=== PATIENT | female | born 1990 | race Caucasian/White ===

== ENCOUNTER 2023-10-31 20:15 | Emergency (ER) | payer BC, SELFPAY ==
[2023-10-31 20:19] VITALS: BP 148/95; PULSE 88; RESP 16; TEMP 36.7; O2SAT 99; BMI 38.4
[2023-10-31 20:59] LABS: Bilirubin Urine NEGATIVE (NEGATIVE); Blood Urine LARGE (NEGATIVE); Clarity Urine CLEAR (CLEAR); Color Urine YELLOW (YELLOW); Glucose Urine UA NEGATIVE (NEGATIVE); Ketones Urine NEGATIVE (NEGATIVE); Leukocyte Esterase Urine NEGATIVE (NEGATIVE); Nitrite Urine NEGATIVE (NEGATIVE); Protein Urine TRACE mg/dL (NEG/TRACE); pH Urine 7.5 (5.0-9.0)
[2023-10-31 21:00] LABS: Basophils Percent Auto 0.2 % (0.2-2.0); Eosinophils Absolute Auto 0.4 10^3/uL (0.0-0.7); Eosinophils Percent Auto 4.8 % (0.9-7.0); Hematocrit 38.5 % (36.0-48.0); Immature Granulocytes Abs Auto 0.02 10^3/uL (0.00-0.03); Immature Granulocytes Pct Auto 0.2 % (0.0-0.5); Lymphocytes Absolute Auto 2.1 10^3/uL (1.2-3.8); Lymphocytes Percent Auto 25.3 % (20.5-60.0); Mean Corpuscular HGB Conc 31.2 g/dL (29.9-35.2); Mean Corpuscular Hemoglobin 26.5 pg (26.7-34.0); Mean Corpuscular Volume 85.2 fL (81.0-99.0); Mean Platelet Volume 10.2 fL (9.5-13.5); Monocytes Absolute Auto 0.8 10^3/uL (0.3-0.8); Monocytes Percent Auto 9.2 % (1.7-12.0); Neutrophils Absolute Auto 4.9 10^3/uL (1.4-6.5); Neutrophils Percent Auto 60.3 % (43.0-75.0); Platelet Count 318 10^3/uL (150-450); Red Blood Count 4.52 10^6/uL (4.20-5.40); Red Cell Distribution Width 13.1 % (11.0-15.0); White Blood Count 8.1 10^3/uL (4.0-11.0)
[2023-10-31 21:02] LABS: Urine Microscopic Indicated YES
--- NOTE | 2023-10-31 21:04 | ED.ABDPAIN1 ---
HPI - Abdominal Pain General Chief Complaint: Abdominal Pain Stated Complaint: ABD PAIN Time Seen by Provider: 10/31/23 20:22 Source: patient Mode of arrival: walk-in History of Present Illness HPI narrative: This afternoon the patient developed pain in the right lower abdomen. Pain comes in waves and is not constant. Sometimes when she gets the pain she has nausea but has not vomited. No flank pain. No urinary symptoms. LMP was 10/22/23 but then she began bleeding again today. She told me that she had her ovarian tubes removed but still has ovaries and uterus. She still has her appendix. No fever or chills. Related Data Previous Rx's Medication Instructions Recorded nabumetone 750 mg tablet 750 mg PO BID PRN pain #20 tabs 10/31/23 Allergies Allergy/AdvReac Type Severity Reaction Status Date / Time No Known Drug Allergies Allergy Verified 10/31/23 20:19 Exam Narrative Exam Narrative: Nurses notes and vital signs reviewed and patient is not hypoxic. afebrile General: Well-appearing and in no apparent distress. Skin: Warm, dry, no pallor noted. Eye: Pupils are equal, round and EOMI. No scleral icterus. Ears, Nose, Mouth, and Throat: Oral mucosa is moist Cardiovascular: Regular Rate and Rhythm without murmur, gallop or rub. Respiratory: No accessory muscle use or respiratory distress. Lungs are clear to auscultation, no wheezing, rales or rhonchi Back: No CVA tenderness Musculoskeletal: normal ROM GI: Abdomen is soft, non-distended. Normal bowel sounds. No masses appreciated. Suprapubic, right adnexal and RLQ tenderness to palpation. No rebound, guarding, or rigidity noted. Neurological: A&O x4. No cranial nerve dysfunction observed. No truncal ataxia. Moves all extremities. Sensation intact. Psychiatric: Cooperative and interactive. Normal mood and affect. Constitutional Vital Signs, click to edit/add: Last Vital Signs Temp 98.0 F 10/31/23 20:19 Pulse 96 H 10/31/23 21:59 Resp 16 10/31/23 21:59 BP 130/88 10/31/23 21:59 Pulse Ox 97 10/31/23 21:59 O2 Del Method Room Air 10/31/23 21:59 Course Vital Signs Vital signs: Vital Signs Temperature 98.0 F 10/31/23 20:19 Pulse Rate 88 10/31/23 20:19 Respiratory Rate 16 10/31/23 20:19 Blood Pressure 148/95 H 10/31/23 20:19 Pulse Oximetry 99 10/31/23 20:19 Oxygen Delivery Method Room Air 10/31/23 20:19 Temperature 98.0 F 10/31/23 20:19 Pulse Rate 96 H 10/31/23 21:59 Respiratory Rate 16 10/31/23 21:59 Blood Pressure 130/88 10/31/23 21:59 Pulse Oximetry 97 10/31/23 21:59 Oxygen Delivery Method Room Air 10/31/23 21:59 MDM - Abdominal Pain MDM Narrative Medical decision making narrative: Blood and urine obtained and sent for testing. She was given oral Toradol for pain once the was negatifve and then sent for CT abd.pelvis. CBC and CMP negative. Preg negative. CT = right adnexal cyst. right renal stone noted without ureteral involvement or hydronephrosis. no evidence of acute appendicitis. She was informed of results. No in house US tonight. She was discharged home with prescription for Relafen and referred to [facility] to get out-patient evaluation if pain continues. Lab Data Attestation: I reviewed the patient's lab results. Labs: Lab Results 10/31/23 10/31/23 Range/Units 20:40 20:50 WBC 8.1 (4.0-11.0) 10^3/uL RBC 4.52 (4.20-5.40) 10^6/uL Hgb 12.0 (12.0-16.0) g/dL Hct 38.5 (36.0-48.0) % MCV 85.2 (81.0-99.0) fL MCH 26.5 L (26.7-34.0) pg MCHC 31.2 (29.9-35.2) g/dL RDW 13.1 (11.0-15.0) % Plt Count 318 (150-450) 10^3/uL MPV 10.2 (9.5-13.5) fL Neut % (Auto) 60.3 (43.0-75.0) % Lymph % (Auto) 25.3 (20.5-60.0) % Wilkinson % (Auto) 9.2 (1.7-12.0) % Eos % (Auto) 4.8 (0.9-7.0) % Baso % (Auto) 0.2 (0.2-2.0) % Neut # (Auto) 4.9 (1.4-6.5) 10^3/uL Lymph # (Auto) 2.1 (1.2-3.8) 10^3/uL Wilkinson # (Auto) 0.8 (0.3-0.8) 10^3/uL Eos # (Auto) 0.4 (0.0-0.7) 10^3/uL Baso # (Auto) 0.0 (0.0-0.1) 10^3/uL Abs Immat Gran (auto) 0.02 (0.00-0.03) 10^3/uL Imm/Tot Granulo (auto) 0.2 (0.0-0.5) % Sodium 138 (136-145) mmol/L Potassium 4.2 (3.5-5.1) mmol/L Chloride 103 (98-107) mmol/L Carbon Dioxide 27.2 (21.0-32.0) mmol/L Anion Gap 12.0 BUN 10.0 (7.0-18.0) mg/dL Creatinine 1.01 (0.55-1.02) mg/dL Est GFR ( Amer) >60 (>=60) Est GFR (Non-Af Amer) >60 (>=60) BUN/Creatinine Ratio 9.9 Glucose 183 H (74-106) mg/dL Calcium 8.5 (8.5-10.1) mg/dL Total Bilirubin 0.2 (0.2-1.0) mg/dL AST 21 (15-37) U/L ALT 32 (14-59) U/L Alkaline Phosphatase 86 (46-116) U/L Total Protein 6.8 (6.4-8.2) g/dL Albumin 3.2 L (3.4-5.0) g/dL Globulin 3.6 g/dL Albumin/Globulin Ratio 0.9 Serum HCG, Qual Negative (NEGATIVE) Urine Color Yellow (YELLOW) Urine Clarity Clear (CLEAR) Urine pH 7.5 (5.0-9.0) Ur Specific [place] 1.020 (1.005-1.025) Urine Protein Trace (NEG/TRACE) mg/dL Urine Glucose (UA) Negative (NEGATIVE) mg/dL Urine Ketones Negative (NEGATIVE) mg/dL Urine Occult Blood Large A (NEGATIVE) Urine Nitrite Negative (NEGATIVE) Urine Bilirubin Negative (NEGATIVE) Urine Urobilinogen 1.0 (0.2-1.0) EU/dL Ur Leukocyte Esterase Negative (NEGATIVE) Urine RBC 0-2 (0-2) #/HPF Urine WBC 0-2 A (NONE SEEN) #/HPF Ur Squamous Epith Cells Few A (NONE/RARE) #/LPF Urine Crystals None seen (None Seen) #/HPF Urine Bacteria Trace A (NONE SEEN) #/HPF Urine Casts None seen (NONE SEEN) #/LPF Urine Mucus None seen (NONE SEEN) Imaging Data CT scan - abdomen: Radiologist's impression: ITS Impressions Abdomen/Pelvis CT 10/31/23 21:18 IMPRESSION: 1. A 4.5 x 4.3 cm oval cystic mass at the right ovary/adnexa containing internal densities (image 103 series 3). Differential includes ovarian cyst with internal debris, ovarian hemorrhagic cyst, endometrioma, or a cystic neoplasm. Recommend emergency pelvic sonogram to further evaluate and to also evaluate surrounding gonadal vessels. 2. Slightly lobulated uterine wall contour is not well evaluated without IV contrast. Trace pelvic free fluid. Mild amount of fluid and foci of air within the vaginal canal. 3. Mild sigmoid diverticula without pericolonic inflammatory stranding. Moderate amount of stool at the cecum. 4. 4 mm nonobstructing right superior renal stone without radiopaque ureteral stone or hydronephrosis. 5. No evidence for acute appendicitis. The appendix is unremarkable. Electronically authenticated by: TONY HICKEY Date: 10/31/2023 22:16 Discharge Plan Discharge Stand Alone Forms: Portal Instructions Chief Complaint: Abdominal Pain Clinical Impression: Complex cyst of right ovary Patient Disposition: Home, Self-Care Time of Disposition Decision: 22:26 Prescriptions / Home Meds: New nabumetone 750 mg tablet 750 mg PO BID PRN (Reason: pain) Qty: 20 0RF Instructions: Ovarian Cyst (ED) Referrals: MARYLIN ERICKSON [Primary Care Provider] - 1 week Tae Gonzalez DO [Physician] - As needed
[2023-10-31 21:13] LABS: Bacteria Urine TRACE #/HPF (NONE SEEN); Mucus Urine NONE SEEN (NONE SEEN); RBC Urine 0-2 #/HPF (0-2); WBC Urine 0-2 #/HPF (NONE SEEN)
[2023-10-31 21:14] LABS: Alanine Aminotransferase 32 U/L (14-59); Albumin Globulin Ratio 0.9; Albumin Level 3.2 g/dL (3.4-5.0); Alkaline Phosphatase 86 U/L (46-116); Aspartate Amino Transferase 21 U/L (15-37); BUN Creatinine Ratio 9.9; Bilirubin Total 0.2 mg/dL (0.2-1.0); Calcium 8.5 mg/dL (8.5-10.1); Carbon Dioxide 27.2 mmol/L (21.0-32.0); Chloride 103 mmol/L (98-107); Estimated GFR (African America >60 (>=60); Estimated GFR (Non-African Ame >60 (>=60); Globulin 3.6 g/dL; Glucose 183 mg/dL (74-106); Potassium 4.2 mmol/L (3.5-5.1); Sodium 138 mmol/L (136-145); Total Protein 6.8 g/dL (6.4-8.2)
[2023-10-31 21:14] LABS: Cast Seen? NONE SEEN #/LPF (NONE SEEN); Crystals Seen? None Seen #/HPF (None Seen); Squamous Epithelial Cell Urine FEW #/LPF (NONE/RARE)
[2023-10-31 21:16] LABS: HCG Qualitative NEGATIVE (NEGATIVE)
--- NOTE | 2023-10-31 21:18 | CT_ITS ---
The [address] [address] Patient Name: ANN WHITT MRN: [id number] date: 1990 Sex: F Assigned Patient Location: ER Current Patient Location: ER Accession/Order Number: [id number] Exam Date: 10/31/2023 21:38 Report Date: 10/31/2023 22:16 At the request of: MICAELA TORRES Procedure: CT abdomen pelvis wo con EXAM: CT abdomen pelvis wo con HISTORY: RLQ abd pain , complaints right lower quadrant abdominal pain radiates to the right hip and upper leg. Started vaginal bleeding. History of ovarian cysts. COMPARISON: No comparison abdominal imaging available at the time of dictation. TECHNIQUE: Multiple axial views CT abdomen pelvis without IV contrast. Coronal sagittal reformats performed. FINDINGS: Visualized lung bases and cardiac apex are unremarkable. Liver, gallbladder, pancreas, spleen, adrenal glands, left kidney, underdistended urinary bladder, and appendix are unremarkable by noncontrast exam. A 4 mm nonobstructing right superior renal stone. No radiopaque ureteral stone or hydronephrosis. A 4.5 x 4.3 cm oval cystic mass at the right ovary/adnexa containing internal densities (image 103 series 3). Slightly lobulated uterine wall contour is not well evaluated without IV contrast. Trace pelvic free fluid. Mild amount of fluid and foci of air within the vaginal canal. Mild sigmoid diverticula without pericolonic inflammatory stranding. Moderate amount of stool at the cecum. Stomach is underdistended. No perigastric inflammatory stranding. No evidence for small bowel obstruction, large ascites, or free air. Retroperitoneal vasculature is unremarkable by noncontrast exam. No acute bony abnormality. Trace retrolisthesis of L5 on S1 secondary to disc aeration. Mild disc bulge at L5-S1 without severe bony canal narrowing. Mild sclerosis of the bones at the bilateral sacroiliac joints. CT/CT abdomen pelvis wo con IMPRESSION: 1. A 4.5 x 4.3 cm oval cystic mass at the right ovary/adnexa containing internal densities (image 103 series 3). Differential includes ovarian cyst with internal debris, ovarian hemorrhagic cyst, endometrioma, or a cystic neoplasm. Recommend emergency pelvic sonogram to further evaluate and to also evaluate surrounding gonadal vessels. 2. Slightly lobulated uterine wall contour is not well evaluated without IV contrast. Trace pelvic free fluid. Mild amount of fluid and foci of air within the vaginal canal. 3. Mild sigmoid diverticula without pericolonic inflammatory stranding. Moderate amount of stool at the cecum. 4. 4 mm nonobstructing right superior renal stone without radiopaque ureteral stone or hydronephrosis. 5. No evidence for acute appendicitis. The appendix is unremarkable. Electronically authenticated by: TONY HICKEY Date: 10/31/2023 22:16
[2023-10-31 21:59] VITALS: BP 130/88; PULSE 96; RESP 16; O2SAT 97
[2023-10-31] MEDS: KETOROLAC TROMETHAMINE 10 MG TABLET PO (22:36)
== END 2023-10-31 22:40 | disposition home or self-care (01) ==
PROVIDERS: Emergency Provider Emergency Medicine; PCP Nurse Practitioner
DX: N83.201 Unspecified ovarian cyst, right side (principal)
CPT/HCPCS: 36415; 74176; 80053; 81001; 84703; 85025; 99284

== ENCOUNTER 2025-04-08 16:36 | Emergency (ER) | payer OTHER, BC, SELFPAY ==
[2025-04-08 16:40] VITALS: BP 160/94; PULSE 95; TEMP 37.1; O2SAT 96; BMI 40.4
--- OUTSIDE RECORDS SUMMARY | 2025-04-08 16:44 | XMS_ITS | Encounter Summary ---
[facility] [place] [id number] [address] [place] [address] Care Team Providers Care Medical Scientific Liaison Name Role Phone Monika, Bernadette Manning APRN-DELIVERY MERCHANDISER Primary Care Provider + Encounter Details Date Type Department Care Team (Late st Contact Info) Description 05/05/2023 Telephone [facility] - Family Medicine [address] [place] [phone] Cristina Blanco MA Social History Tobacco Use Types Packs/Day Years Used Date Smoking Tobacco: Never Smokeless Tobacco: Never Alcohol Use Standard Drinks/Week Comments Yes 0 (1 standard drink = 0.6 oz pur e alcohol) rarely Overall Financial Resource Strain (CARDIA) Answe r Date Recorded How hard is it for you to pa y for the very basics like food, housing, medical care, and heating? Somewhat hard 10/20/2022 PHQ-2 Answer Date Recorded Total Score 0 04/29/2023 PRAPARE - Transportation Answer Date Re corded In the past 12 months, has l ack of transportation kept you from medical appointments or from getting medications? No 02/2023 In the past 12 months, has l ack of transportation kept you from meetings, work, or from getting things needed for daily living? No 10/20/2022 Housing Instability Answer Date Recorde d Are you worried or concerned that in the next two months you may not have stable housing that you own, rent or stay in as a part of a household? No 10/20/2022 Childcare Answer Date Recorded Childcare Unknown 01/19/2019 Employment Answer Date Recorded Employment Unknown 01/19/2019 Purpose - Life Answer Date Recorded Purpose and direction in life Unknown Comments No Sex and Gender Information Value Date Recorded Sex Assigned at Not on file Legal Sex Female 12:07 PM EDT Gender Identity Not on file Sexual Orientation Not on file documented as of this encounter Miscellaneous Notes * Telephone Encounter - Cristina Blanco MA - 05/05/2023 3:17 PM EDT Vrylar is being denied , no reason given. * Telephone Encounter - JACINTO Ballard - 05/05/2023 3:17 PM EDT I don't see the denial in her chart - is there alternative medications listed? When I typed a few in, nothing is saying covered. Stephany Pace * Telephone Encounter - Cristian Blanco MA - 05/05/2023 3:17 PM EDT No, I only got informed it was denied in cover my meds, doesn't say anything that is covered, saying may be covered through savings card online or assistance * Telephone Encounter - JACINTO Ballard - 05/05/2023 3:17 PM EDT Please let her know about using savings card - [facility] but if not she can get online and activate before going to pharmacy- have her let me know if still not affordable. Or maybe contact out [facility] to help * Telephone Encounter - Cristina Blanco MA - 05/05/2023 3:17 PM EDT Called pt and informed her of all documented in this encounter Plan of Treatment Upcoming Encounters Date Type Department Care Team (Late st Contact Info) Description 05/04/2025 10:00 AM EDT Office Visit [facility] - Family Medicine [address] [place] [address] Bernadette Frank APRN-DELIVERY MERCHANDISER [address] [place] [address] documented as of this encounter Visit Diagnoses Not on filedocumented in this encounter Additional Health Concerns Assessment Noted Time PHQ-9 Depression Total Score: 0 04/29/20 9:40 AM EDT A Body Mass Index follow-up plan has been documented for the patient 12/21/2022 11:14 AM EDT documented as of this encounter Care Teams Medical Scientific Liaison Relationship Specialty Start Date End Date Bernadette Frank APRN-JAIRO [address] [place] [address] PCP - General Internal Medicine 10/13/22 documented as of this encounter
--- OUTSIDE RECORDS SUMMARY | 2025-04-08 16:44 | XMS_ITS | Encounter Summary ---
Author Organization [facility] Address [facility] [id number] [address] [place] [address] Care Team Providers Care Geotechnical Department Manager Name Role Phone Bernadette Frank APRN-DENTAL OFFICE RECEPTIONIST Primary Care Provider + Encounter Details Date Type Department Care Team (Late st Contact Info) Description 11/03/2023 Telephone [facility] - Family Medicine [address] [phone] Bernadette Frank APRN-DENTAL OFFICE RECEPTIONIST [address] [facility] [place] [address] Social History Tobacco Use Types Packs/Day Years [...] PHQ-2 Answer Date Recorded Total Score 0 05/14/2023 PRAPARE - Transportation Answer Date Re corded [...] Employment Answer Date Recorded Employment Unknown 01/19/2019 Hunger Screening Answer Date Recorded Within the past 12 months we worried whether our food would run out before we got money to buy more. Never True 05/14/2023 Within the past 12 months th e food we bought just didn't last and we didn't have money to get more. Never True 05/14/2023 Purpose - Life Answer Date Recorded Purpose and direction in life Unknown Comments No Sex and Gender Information Value Date Recorded Sex Assigned at Not on file Legal Sex Female 12:07 PM EDT Gender Identity Not on file Sexual Orientation Not on file documented as of this encounter Miscellaneous Notes * Telephone Encounter - Ce Chu - 11/03/2023 8:17 AM EDT ----- Message from JACINTO Ballard sent at 11/02/2023 8:41 AM EDT ----- Please see how she is feeling and if she would like ER f/u for abd pain ----- Message ----- From: Ce Chu Sent: 11/01/2023 1:39 PM EDT To: JACINTO Ballard * Telephone Encounter - Ce Chu - 11/03/2023 8:17 AM EDT Sent mycjil msg * Telephone Encounter - Ce Chu - 11/03/2023 8:17 AM EDT Patient is feeling better and does not want appt documented in this encounter Plan of Treatment Upcoming Encounters Date Type Department Care Team (Late st Contact Info) Description 05/04/2025 10:00 AM EDT Office Visit [facility] - Family Medicine [address] [place] [address] Bernadette Frank APRN-CNP [address] [place] [address] documented as of this encounter Visit Diagnoses Not on filedocumented in this encounter Additional Health Concerns Assessment Noted Time PHQ-9 Depression Total Score: 0 05/14/20 8:43 AM EDT A Body Mass Index follow-up plan has been documented for the patient 12/21/2022 11:14 AM EDT documented as of this encounter Care Teams Geotechnical Department Manager Relationship Specialty Start Date End Date Bernadette Frank APRN-CNP [address] [place] [address] PCP - General Internal Medicine 10/13/22 documented as of this encounter
--- OUTSIDE RECORDS SUMMARY | 2025-04-08 16:44 | XMS_ITS | Encounter Summary ---
Author Organization [facility] Address [address], [address] [place] [address] Care Team Providers Care Senior Quality Control Technician Name Role Phone Ya Morrow ARCHITECTURE PROFESSOR - HOE RUNNER Primary Care Prov ider Encounter Details Date Type Department Care Team (Late st Contact Info) Description 09/27/2019 FollowUp Telephone Encounter [facility] Labor and Delivery [address] [place] [address] Radha Ramos [place] [address] Social History Tobacco Use Types Packs/Day Years Used Date Smoking Tobacco: Never Smokeless Tobacco: Never Alcohol Use Standard Drinks/Week Comments Not Currently 0 (1 standard drink = 0.6 oz pur e alcohol) PHQ-2 Answer Date Recorded PHQ-2 Score 0 08/07/2019 Comments No Sex and Gender Information Value Date Recorded Sex Assigned at Not on file Legal Sex Female 4:14 PM EDT Gender Identity Not on file Sexual Orientation Not on file documented as of this encounter Progress Notes * Radha Ramos IBCLC - 09/27/2019 1:38 PM EST Discharge Phone Call Log Patient Name: Xuan Rushing Manuel OB Care Provider: No admitting provider for patient encounter. Most Recent Discharge Date: 09/23/19 Disposition of baby: (home) Call made 09/27/2019 1:38 PM [x] Spoke with patient. Mom and baby are doing well: denies needs. [x] Understood discharge instruction and had appropriate follow up care. [x] Had a good hospital experience. [] Gave compliments - documented in this encounter Plan of Treatment Not on file documented as of this encounter Visit Diagnoses Not on filedocumented in this encounter Care Teams Senior Quality Control Technician Relationship Specialty Start Date End Date Ya Morrwo, ARCHITECTURE PROFESSOR - HOE RUNNER PCP - General 02/07/19 documented as of this encounter
--- OUTSIDE RECORDS SUMMARY | 2025-04-08 16:44 | XMS_ITS | Encounter Summary ---
Author Organization [facility] Address [id number] [address] [place] [address] Care Team Providers Care Leaf Conditioner Name Role Phone Monika Bernadette Manning APRN-IT RISK ADVISOR Primary Care Provider + Encounter Details Date Type Department Care Team (Late st Contact Info) Description 09/01/2024 Orders Only [facility] - Family Medicine [address] [place] [phone] Tita Vance CMA Moderate episode of recurrent major depressive disorder (CMS-HCC); Anxiety Social History Tobacco Use Types Packs/Day Years Used Date Smoking Tobacco: Never Smokeless Tobacco: Never Alcohol Use Standard Drinks/Week Comments Yes 0 (1 standard drink = 0.6 oz pur e alcohol) rarely Overall Financial Resource Strain (CARDIA) Answe r Date Recorded How hard is it for you to pa y for the very basics like food, housing, medical care, and heating? Not very hard 06/21/2024 PHQ-2 Answer Date Recorded Total Score 9 08/25/2024 PRAPARE - Transportation Answer Date Re corded In the past 12 months, has l ack of transportation kept you from medical appointments or from getting medications? No 01/2024 In the past 12 months, has l ack of transportation kept you from meetings, work, or from getting things needed for daily living? No 06/21/2024 Housing Instability Answer Date Recorde d Are you worried or concerned that in the next two months you may not have stable housing that you own, rent or stay in as a part of a household? No 06/21/2024 Childcare Answer Date Recorded Childcare Unknown 01/19/2019 Employment Answer Date Recorded Employment Unknown 01/19/2019 Hunger Screening Answer Date Recorded Within the past 12 months we worried whether our food would run out before we got money to buy more. Never True 08/25/2024 Within the past 12 months th e food we bought just didn't last and we didn't have money to get more. Never True 08/25/2024 Purpose - Life Answer Date Recorded Purpose and direction in life Unknown Comments No Sex and Gender Information Value Date Recorded Sex Assigned at Not on file Legal Sex Female 12:07 PM EDT Gender Identity Not on file Sexual Orientation Not on file documented as of this encounter Plan of Treatment Upcoming Encounters Date Type Department Care Team (Late st Contact Info) Description 05/04/2025 10:00 AM EDT Office Visit [facility] - Family Medicine [address] [place] [address] Bernadette Frank APRN-IT RISK ADVISOR [address] [facility] [place] [address] documented as of this encounter Procedures Procedure Name Priority Date/Time Associated Diagnosis Comments GENESITE TEST NON-[facility] Routine 08/03/2024 Moderate episode of recurrent major depressive disorder (CMS-HCC) Anxiety documented in this encounter Results * Genesite Test Non-[facility] (08/03/2024) 08/03/2024 us Bernadette Frank TORCH BURNER-IT RISK ADVISOR LAB BLOOD ORDERABLES Fin al Result MANUALLY TRANSCRIBED RESULTS documented in this encounter Visit Diagnoses Diagnosis Moderate episode of recurrent major depressive disorder (CMS-HCC) Anxiety Anxiety state, unspecified documented in this encounter Additional Health Concerns Assessment Noted Time PHQ-9 Depression Total Score: 9 08/25/19 25 11:17 AM EST A Body Mass Index follow-up plan has been documented for the patient 12/21/2022 11:14 AM EDT documented as of this encounter Care Teams Leaf Conditioner Relationship Specialty Start Date End Date Bernadette Frank, TORCH BURNER-IT RISK ADVISOR [address] [place] [address] PCP - General Internal Medicine 10/13/22 documented as of this encounter
--- OUTSIDE RECORDS SUMMARY | 2025-04-08 16:44 | XMS_ITS | Clinical Summary ---
Author Organization [facility] Healthcare Address [address] [place] [address] Care Team Providers Care Platform Man Name Role Phone Bernadette Frank MD Unavailable Allergies No known active allergies Medications buPROPion XL (Wellbutrin XL) 150 MG 24 hr tablet Take 150 mg by mouth in the morning. 06/22/2024 Active escitalopram (Lexapro) 20 MG tablet Take 1 tablet by mouth in the morning. 12/23/2023 Active loratadine (Claritin) 10 MG tablet Take 10 mg by mouth in the morning. 06/22/2024 Active ibuprofen 800 MG tablet Take 800 mg by mouth every 8 (eight) hours if needed 07/28/2024 Active LORazepam (Ativan) 0.5 MG tablet Take by mouth Active amoxicillin (Amoxil) 500 MG capsule TAKE 1 CAPSULE BY MOUTH IN THE MORNING AND 1 AT BEDTIME FOR 10 DAYS 07/28/2024 Active Active Problems Problem Noted Date Diagnosed Date Menorrhagia 08/02/2024 Menstrual disorder 08/02/2024 Anxiety 11/27/2022 Moderate episode of recurrent major depressive d isorder 11/27/2022 Carpal tunnel syndrome of right wrist 10/22/2022 Failed medical induction of labor ([facility]) 04/2023 macrosomia in third trimester ([facility]) Metrorrhagia 10/22/2022 Obesity with body mass index 30 or greater 10/22 Polyhydramnios in third trimester ([facility]) 04/2023 Postcoital bleeding 10/22/2022 Primary insomnia 10/22/2022 S/P primary low transverse 10/22/2022 Sleep apnea 10/22/2022 Vitamin D deficiency 10/22/2022 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 Term ([facility]) 09/20/2019 Uterine contractions during ([facility]) 09/11/2019 Class 1 obesity due to exces s calories without serious comorbidity with body mass index (BMI) of 34.0 to 34.9 in adult 11/27/2018 Diarrhea 11/02/2018 Encounter for general adult medical examination without abnormal findings 11/02/2018 Nausea 11/02/2018 RUQ pain 11/02/2018 Immunizations Immunization Administration Dates Next Due Influenza, injectable, quadrivalent, preservativ e free 07/14/2019 Tdap 08/07/2019 Family History Medical History Relation Name Comments Diabetes Father Orlin Lancaster Asthma Mother Magalys Lancaster Rashes / Skin problems Mother Magalys Lancaster Thyroid disease Mother Magalys Lancaster Relation Name Status Comments Father Orlin Lancaster Mother Magalys Lancaster Social History Tobacco Use Types Packs/Day Years Used Date Smoking Tobacco: Never Smokeless Tobacco: Never Tobacco Cessation:Counseling Given: Not Answered Alcohol Use Standard Drinks/Week Comments Not Currently 2 (1 standard drink = 0.6 oz pure alcohol) 1 or 2 i really dont drink that often Comments No Sex and Gender Information Value Date Recorded Sex Assigned at Not on file Legal Sex Female 6:38 PM EDT Gender Identity Not on file Sexual Orientation Not on file Last Filed Vital Signs Vital Sign Reading Time Taken Comments Blood Pressure 167/103 08/04/2024 8:52 AM EST Pulse - - Temperature - - Respiratory Rate - - Oxygen Saturation - - Inhaled Oxygen Concentration - - Weight 98.9 kg (218 lb) 08/04/2024 8:52 AM EST Height 152.4 cm (5') 08/04/2024 8:52 AM EST Body Mass Index 42.58 08/04/2024 8:52 AM EST Plan of Treatment Upcoming Encounters Date Type Department Care Team (Late st Contact Info) Description 05/21/2025 10:00 AM EDT Clinical Support [facility] [address] [place] [id number] Simin De Leon, [facility] [address] [place] [address] 05/22/2025 10:30 AM EDT Office Visit [facility] [address] [facility] [address] [place] [id number] Renée Vegas MD [address] [facility] [address] [place] [address] Insurance BCBS Care Teams Platform Man Relationship Specialty Start Date End Date Bernadette Frank MD Referring Physician Family Medicine 08/02/24
--- OUTSIDE RECORDS SUMMARY | 2025-04-08 16:44 | XMS_ITS | Clinical Summary ---
Author Organization [facility] Address [id number] [address] [place] [address] Care Team Providers Care [employer] Internship Name Role Phone Bernadette Frank APRN-ADULT LITERACY INSTRUCTOR Primary Care Provider + Allergies Active Allergy Reactions Criticality Noted Date Comments Cat Dander Eye Swelling,Hives,Itching,Wheezing Bupropion Hcl Itching Low 09/08/2024 Medications LORazepam (ATIVAN) 0.5 mg tabletIndication s:Anxiety Take 1 tablet (0.5 mg total) by mouth 2 (two) times a day as needed for anxiety. 10 tablet 3 Active hydrocortisone (HYTONE) 2.5 % cream Apply 1 Application topically in the morning and 1 Application before bedtime. FOR HANDS. 30 g 1 5 Active triamcinolone (KENALOG) 0.1 % cream Apply 1 Application topically in the morning and 1 Application before bedtime. Limbs, trunk, ankles wrists. 80 g 1 5 Active albuterol (PROVENTIL HFA;VENTOLIN HFA) 90 mcg/actuation inhalerIndicatio ns:Mild intermittent reactive airway disease without complication Inhale 2 puffs every 6 (six) hours as needed for wheezing or shortness of breath. 18 g 1 5 Active fluticasone propion-salmeter oL (ADVAIR DISKUS) 250-50 mcg/dose DISKUS Inhale 1 puff in the morning and 1 puff before bedtime. 60 each 1 5 Active naproxen (NAPROSYN) 500 mg tablet Take 1 tablet (500 mg total) by mouth in the morning and 1 tablet (500 mg total) in the evening. Take with meals. 60 tablet 1 Active citalopram (CeleXA) 20 mg tablet Take 1 tablet (20 mg total) by mouth in the morning. 90 tablet 1 Active Active Problems Problem Noted Date Diagnosed Date Reactive airway disease 03/09/2025 Menorrhagia 08/02/2024 Moderate episode of recurrent major depressive d isorder 11/27/2022 Anxiety 11/27/2022 Carpal tunnel syndrome of right wrist 10/22/2022 Failed medical induction of labor 10/22/2022 macrosomia in third trimester 10/22/2022 Metrorrhagia 10/22/2022 Polyhydramnios in third trimester 10/22/2022 Postcoital bleeding 10/22/2022 Primary insomnia 10/22/2022 S/P primary low transverse 10/22/2022 Sleep apnea 10/22/2022 Vitamin D deficiency 10/22/2022 Obesity with body mass index 30 or greater 10/22 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 Term 09/20/2019 Uterine contractions during 09/11/2019 Class 1 obesity due to exces s calories without serious comorbidity with body mass index (BMI) of 34.0 to 34.9 in adult 11/27/2018 Annual physical exam 11/21/2018 RUQ pain 11/02/2018 Blood tests for routine general physical examina tion 11/02/2018 Nausea 11/02/2018 Diarrhea 11/02/2018 Encounters Date Type Department Care Team Description 03/14/2025 Results Follow-Up [facility] [address] [place] [address] Bernadette Frank APRN-CNP Comprehensive metabolic panel, Lipid profile 03/09/2025 10:00 AM EDT Office Visit [facility] [address] [place] [address] Bernadette Frank APRN-CNP Wellness examination (Primary Dx); Moderate episode of recurrent major depressive disorder (CMS-HCC); Anxiety; Tension headache; Class 3 severe obesity due to excess calories without serious comorbidity with body mass index (BMI) of 40.0 to 44.9 in adult ([facility]); Atopic dermatitis, unspecified type; Bilateral hearing loss, unspecified hearing loss type; Mild intermittent reactive airway disease without complication; Elevated blood pressure reading 03/08/2025 Travel 01/18/2025 9:40 AM EDT Office Visit [facility] [address] [facility] [place] [address] Bernadette Frank, COMPATIBILITY TEST ENGINEER-ADULT LITERACY INSTRUCTOR Moderate persistent asthma, unspecified whether complicated (Primary Dx); Anxiety; Moderate episode of recurrent major depressive disorder ([facility]); Seasonal allergic rhinitis due to pollen; Class 3 severe obesity due to excess calories with serious comorbidity and body mass index (BMI) of 40.0 to 44.9 in adult ([facility]) 01/16/2025 Travel from Last 3 Months Immunizations Immunization Administration Dates Next Due Influenza, Injectable, quadrivalent (PF) 019 Tdap 08/07/2019 Family History Medical History Relation Name Comments Diabetes Father borderline Asthma Mother Thyroid disease Mother Relation Name Status Comments Brother Alive Daughter 1 Alive born at 24 week s Daughter 2 Alive Father Alive Mother Alive Social History Tobacco Use Types Packs/Day Years Used Date Smoking Tobacco: Never Smokeless Tobacco: Never Tobacco Cessation:Counseling Given: Not Answered Alcohol Use Standard Drinks/Week Comments Yes 0 (1 standard drink = 0.6 oz pur e alcohol) rarely Overall Financial Resource Strain (CARDIA) Answe r Date Recorded How hard is it for you to pa y for the very basics like food, housing, medical care, and heating? Not very hard 06/21/2024 PHQ-2 Answer Date Recorded Total Score 1 03/09/2025 PRAPARE - Transportation Answer Date Re corded [...] got money to buy more. Never True 03/09/2025 Within the past 12 months th e food we bought just didn't last and we didn't have money to get more. Never True 03/09/2025 Purpose - Life Answer Date Recorded Purpose and direction in life Unknown Comments No Sex and Gender Information Value Date Recorded Sex Assigned at Not on file Legal Sex Female 12:07 PM EDT Gender Identity Not on file Sexual Orientation Not on file Last Filed Vital Signs Vital Sign Reading Time Taken Comments Blood Pressure 138/98 03/09/2025 9:52 AM EDT Pulse 77 03/09/2025 9:52 AM EDT Temperature 36.5 C (97.7 F) 03/09/2025 9:52 AM EDT Respiratory Rate 18 03/09/2025 9:52 AM EDT Oxygen Saturation 97% 03/09/2025 9:52 AM EDT Inhaled Oxygen Concentration - - Weight 97.7 kg (215 lb 6.4 oz) 03/09/2025 9:52 A M EDT Height 149.9 cm (4' 11.02 ) 03/09/2025 9:52 AM E DT Body Mass Index 43.48 03/09/2025 9:52 AM EDT Plan of Treatment Upcoming Encounters Date Type Department Care Team (Late st Contact Info) Description 05/04/2025 10:00 AM EDT Office Visit [facility] [address] [place] [address] Bernadette Frank, COMPATIBILITY TEST ENGINEER-ADULT LITERACY INSTRUCTOR [address] [place] [address] Health Maintenance Due Date Last Done Comments Pap Smear 12/21/2025 12/21/2022, 05/0 03/2023, 03/20/2019 Adult BMI Follow Up Plan 03/09/2026 03/09/2025 Adult BMI Screening 03/09/2026 03/09/2025 Depression Screening 03/09/2026 03/09/2025 Tobacco Screening 03/09/2026 03/09/2025 DTaP,Tdap and Td Vaccines (2 - Td or Tdap) 08/07/2029 08/07/2019 Influenza Vaccine Discontinued 07/14/2019 Medical Devices Not on file Procedures Procedure Name Priority Date/Time Associated Diagnosis Comments LIPID PROFILE Routine 03/09/2025 10:44 AM EDT Wellness examination COMPREHENSIVE METABOLIC PANEL Routine 03/09/2025 10:44 AM EDT Wellness examination HIGH RISK HPV W/NEGRITA Routine 12/21/2022 4:40 AM EDT Cervical smear, as part of routine gynecological examination from Last 3 Months or Most Recently Relevant to Health Maintenance Results * (ABNORMAL) Lipid profile (03/09/2025 10:44 AM EDT) CHOLESTEROL 210(H) 150 - 200 mg/dL 03/09/2025 6:13 PM EDT [facility] TRIGLYCERIDE 141 27 - 150 mg/dL 03/09/2025 6:13 PM EDT [facility] HDL CHOLESTEROL 44 >39 mg/dL 6:13 PM EDT [facility] Comment: HDL <40 mg/dL - High Risk HDL > or = 40mg/dL- Desirable HDL >60 mg/dL - Negative Risk LDL (CALC) 138(H) <130 mg/dL 03/09/2025 6:13 PM EDT [facility] Comment: LDL <100 mg/dL - Desirable LDL >160 mg/dL - High Risk CHOLESTEROL:HDL 4.8 1.0 - 5.0 6:13 PM EDT [facility] VERY LOW LIPOPROTEIN 28 0 - 30 mg/dL 03/09/2025 6:13 PM EDT [facility] Blood Venous blood / Unknown 03/09/2025 10:44 AM EDT 03/09/2025 10:44 AM EDT Bernadette Frank COMPATIBILITY TEST ENGINEER-ADULT LITERACY INSTRUCTOR LAB BLOOD ORDERABLES Fin al Result [facility] [address] [place] [address], * (ABNORMAL) Comprehensive metabolic panel (03/09/2025 10:44 AM EDT) SODIUM 138 134 - 146 mmol/L 03/09/2025 6:13 PM EDT [facility] POTASSIUM 4.0 3.5 - 5.0 mmol/L 03/09/2025 6:13 PM EDT [facility] CHLORIDE 101 98 - 109 mmol/L 03/09/2025 6:13 PM EDT [facility] CARBON DIOXIDE 26 22 - 32 mmol/L 03/09/2025 6:13 PM EDT [facility] ANION GAP 11 5 - 15 mmol/L 03/09/2025 6:13 PM EDT [facility] BLOOD UREA NITROGEN 10 5 - 23 mg/dL 03/09/2025 6:13 PM EDT [facility] CREATININE 0.73 0.40 - 1.00 mg/dL 03/09/2025 6:13 PM EDT [facility] Comment:METHOD TRACEABLE TO IDMS STANDARD GLUCOSE 154(H) 65 - 99 mg/dL 03/09/2025 6:13 PM EDT [facility] CALCIUM 9.1 8.5 - 10.5 mg/dL 03/09/2025 6:13 PM EDT [facility] TOTAL PROTEIN 7.3 6.0 - 8.0 g/dL 03/09/2025 6:13 PM EDT [facility] ALBUMIN 4.4 3.2 - 5.3 g/dL 03/09/2025 6:13 PM EDT [facility] ALKALINE PHOSPHATASE 84 39 - 130 U/L 03/09/2025 6:13 PM EDT [facility] AST 17 <=41 U/L 03/09/2025 6:13 PM EDT [facility] ALT 21 <=31 U/L 03/09/2025 6:13 PM EDT [facility] BILIRUBIN,TOTAL 0.5 0.3 - 1.2 mg/dL 03/09/2025 6:13 PM EDT [facility] EGFR Non-Race Dependent >90 >=60 ml/min/1.7 3sq.m 03/09/2025 6:13 PM EDT [facility] Comment: Reported eGFR is based on the CKD-EPI 2020 equation that does not use a race coefficient. Blood Venous blood / Unknown 03/09/2025 10:44 AM EDT 03/09/2025 10:44 AM EDT Bernadette Frank COMPATIBILITY TEST ENGINEER-ADULT LITERACY INSTRUCTOR LAB BLOOD ORDERABLES Fin al Result Performing Organization Address City/[facility]/ZIP Co de Phone Number [facility] [address] [place] [address], * High risk HPV w/negrita (12/21/2022 4:40 AM EDT) Hpv specimen type ThinPrep 12/22/2022 4:41 AM EDT [facility] Hpv 16 Negative Negative^N egative 12/23/2022 6:25 AM EDT [facility] Hpv 18 Negative Negative^N egative 12/23/2022 6:25 AM EDT [facility] Other high risk hpv Negative Negative^N egative 12/23/2022 6:25 AM EDT [facility] Comment: HPV types 31,33,35,39,45,52,56,58,59,66 and 68 DNA were undetectable. THINP 12/21/2022 4:40 AM EDT 12/21/2022 5:22 AM EDT us Tamara Chavez MD LAB BLOOD ORDERABLES Final Res ult [address] [place] [address] [facility] [address] [place] [address] from Last 3 Months or Most Recently Relevant to Health Maintenance Insurance [facility] Advance Directives Documents on File Type Date Recorded Patient Fisher Diver Net Expl anation Advance Directive 01/18/2025 9:12 AM Care Teams University Internship Relationship Specialty Start Date End Date Bernadette Frank, COMPATIBILITY TEST ENGINEER-ADULT LITERACY INSTRUCTOR [address] [place] [address] PCP - General Internal Medicine 10/13/22
--- OUTSIDE RECORDS SUMMARY | 2025-04-08 16:44 | XMS_ITS | Encounter Summary ---
Author Organization [facility] Address [id number] [address] [place] [address] Care Team Providers Care Chemical Etching Processor Name Role Phone Monika Bernadette Manning APRN-REFINING STILL OPERATOR Primary Care Provider + Encounter Details Date Type Department Care Team (Late st Contact Info) Description 09/05/2024 Telephone [facility] - [facility] [address] [place] [phone] Maribell Mota CMA Social History Tobacco Use Types Packs/Day Years [...] 06/21/2024 PHQ-2 Answer Date Recorded Total Score 0 09/08/2024 PRAPARE - Transportation Answer Date Re corded [...] got money to buy more. Never True 09/08/2024 Within the past 12 months th e food we bought just didn't last and we didn't have money to get more. Never True 09/08/2024 Purpose - Life Answer Date Recorded Purpose and direction in life Unknown Comments No Sex and Gender Information Value Date Recorded Sex Assigned at Not on file Legal Sex Female 12:07 PM EDT Gender Identity Not on file Sexual Orientation Not on file documented as of this encounter Miscellaneous Notes * Telephone Encounter - Maribell Mota CMA - 09/05/2024 9:27 AM EST ----- Message from JACINTO Jaime sent at 09/05/2024 8:57 AM EST ----- We have her genesite testing back so you can set up appt to review/decide on med therapy documented in this encounter Plan of Treatment Upcoming Encounters Date Type Department Care Team (Late st Contact Info) Description 05/04/2025 10:00 AM EDT Office Visit [facility] [address] [place] [address] Bernadette Frank APRN-CNP [address] [place] [address] documented as of this encounter Visit Diagnoses Not on filedocumented in this encounter Additional Health Concerns Assessment Noted Time PHQ-9 Depression Total Score: 9 08/25/19 25 11:17 AM EST A Body Mass Index follow-up plan has been documented for the patient 12/21/2022 11:14 AM EDT documented as of this encounter Care Teams Chemical Etching Processor Relationship Specialty Start Date End Date Bernadette Frank APRN-CNP [address] [place] [address] PCP - General Internal Medicine 10/13/22 documented as of this encounter
--- OUTSIDE RECORDS SUMMARY | 2025-04-08 16:44 | XMS_ITS | Encounter Summary ---
Author Organization [facility] Address [facility] [id number] [address] [place] [address] Care Team Providers Care Property Damage Claims Adjustor Name Role Phone MonikaBernadette ruiz Kerri CAMPBELL-BEAM DYER Primary Care Provider + Encounter Details Date Type Department Care Team (Late st Contact Info) Description 09/01/2024 Orders Only [facility] - Family Medicine [address] [place] [address] Ref Prov, [place] [address] Social History Tobacco Use Types Packs/Day Years [...] Medicine - Family Medicine [address] [place] [address] Bernadette Frank APRN-BEAM DYER [address] [place] [address] documented as of this encounter Procedures Procedure Name Priority Date/Time Associated Diagnosis Comments MULTIPLE LABS Routine 08/03/2024 8:59 AM EST documented in this encounter Results * Multiple labs (08/03/2024 8:59 AM EST) us Not In System Ref Prov [place] IMAGING Final Res ult documented in this encounter Visit Diagnoses Not on filedocumented in this encounter Additional Health Concerns Assessment Noted Time PHQ-9 Depression Total Score: 9 08/25/19 25 11:17 AM EST A Body Mass Index follow-up plan has been documented for the patient 12/21/2022 11:14 AM EDT documented as of this encounter Care Teams Property Damage Claims Adjustor Relationship Specialty Start Date End Date Bernadette Frank APRN-BEAM DYER [address] [place] [address] PCP - General Internal Medicine 10/13/22 documented as of this encounter
--- OUTSIDE RECORDS SUMMARY | 2025-04-08 16:45 | XMS_ITS | Encounter Summary ---
Author Organization [facility] Address [id number] [address] [place] [address] Care Team Providers Care Pot Maker Name Role Phone Bernadette Frank APRN-FARM CONSULTANT Primary Care Provider + Encounter Details Date Type Department Care Team (Late st Contact Info) Description 08/22/2024 Orders Only [facility] - Family Medicine [address] [place] [address] Bernadette Frank, GAS ENGINE OPERATOR GENERATORS-FARM CONSULTANT [address] [facility] [place] [address] Moderate episode of recurrent major depressive disorder [...] Internal Medicine - Family Medicine [address] [place] [address] Bernadette Frank, ADRINA-FARM CONSULTANT [address] [place] [address] documented as of this encounter Procedures Procedure Name Priority Date/Time Associated Diagnosis Comments AMB REFERRAL TO PSYCHIATRY Routine 08/22/2024 12:43 PM EST Moderate episode of recurrent major depressive disorder (CMS-HCC) Anxiety documented in this encounter Results * Ambulatory referral to Psychiatry ([facility]) (08/22/2024 12:43 PM EST) us Bernadette Frank GAS ENGINE OPERATOR GENERATORS-FARM CONSULTANT OUTPATIENT REFERRAL IBIS [facility]ITO Final Result MANUALLY TRANSCRIBED RESULTS documented in this encounter Visit Diagnoses Diagnosis Moderate episode of recurrent major depressive disorder (CMS-HCC) Anxiety Anxiety state, unspecified documented in this encounter Additional Health Concerns Assessment Noted Time PHQ-9 Depression Total Score: 12 024 10:54 AM EST A Body Mass Index follow-up plan has been documented for the patient 12/21/2022 11:14 AM EDT documented as of this encounter Care Teams Pot Maker Relationship Specialty Start Date End Date Bernadette Frank APRN-JAIRO [address] [place] [address] PCP - General Internal Medicine 10/13/22 documented as of this encounter
--- OUTSIDE RECORDS SUMMARY | 2025-04-08 16:45 | XMS_ITS | Encounter Summary ---
Author Organization [facility] Address [id number] [address] [place] [address] Care Team Providers Care Security Dispatcher Name Role Phone Bernadette Frank APRN-DEVELOPMENTAL SERVICES WORKER Primary Care Provider + Encounter Details Date Type Department Care Team (Late st Contact Info) Description 08/04/2024 Orders Only [facility] Internal Medicine - Family Medicine [address] [place] [address] Bernadette Frank, RN IMMUNOLOGY-DEVELOPMENTAL SERVICES WORKER [address] [facility] [place] [address] Enlarged tonsils Social History Tobacco Use Types Packs/Day Years [...] 06/21/2024 PHQ-2 Answer Date Recorded Total Score 12 06/22/2024 PRAPARE - Transportation Answer Date Re corded [...] got money to buy more. Never True 024 Within the past 12 months th e food we bought just didn't last and we didn't have money to get more. Sometimes True 06/21/2024 Purpose - Life Answer Date Recorded Purpose [...] Internal Medicine - Family Medicine [address] [place] [address] Bernadette Frank APRN-JAIRO [address] [place] [address] documented as of this encounter Procedures Procedure Name Priority Date/Time Associated Diagnosis Comments AMB REFERRAL TO ENT Routine 08/04/2024 1 0:30 AM EST Enlarged tonsils documented in this encounter Results * Ambulatory referral to ENT ([facility]) (08/04/2024 10:30 AM EST) us Bernadette Frank RN IMMUNOLOGY-DEVELOPMENTAL SERVICES WORKER OUTPATIENT REFERRAL [place] [facility] Final Result MANUALLY TRANSCRIBED RESULTS documented in this encounter Visit Diagnoses Diagnosis Enlarged tonsils Hypertrophy of tonsils alone documented in this encounter Additional Health Concerns Assessment Noted Time PHQ-9 Depression Total Score: 12 024 10:54 AM EST A Body Mass Index follow-up plan has been documented for the patient 12/21/2022 11:14 AM EDT documented as of this encounter Care Teams Security Dispatcher Relationship Specialty Start Date End Date Bernadette Frank, RN IMMUNOLOGY-DEVELOPMENTAL SERVICES WORKER [address] [place] [address] PCP - General Internal Medicine 10/13/22 documented as of this encounter
--- OUTSIDE RECORDS SUMMARY | 2025-04-08 16:45 | XMS_ITS | Clinical Summary ---
Author Organization [facility] Address [address], [address] [place] [address] Care Team Providers Care Glass Edger Name Role Phone Ya Morrow LIFE SCIENCES DIRECTOR - DOOR TECHNICIAN Primary Care Prov ider Allergies No known active allergies Medications NY-Ook-HX-[place] -3 ( GUMMIES/DHA & FA) 0.4-32.5 MG CHEW Take 1 tablet by mouth Active buPROPion (WELLBUTRIN XL) 150 MG extended release tabletIndicatio ns:Irritability and anger Take 1 tablet by mouth every morning 30 tablet 12 11/06/2019 Active norethindrone (ORTHO MICRONOR) 0.35 MG tabletIndicatio ns:Irritability and anger Take 1 tablet by mouth daily 28 tablet 12 11/06/2019 Active Active Problems Patient Care Coordination No te Formatting of this note migh t be different from the original. History of delivery at 24 weeks and 18 weeks [place] med[place] risk assesment form = n/a testing = declined Ped = RH factor = Rhogam? 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 Term 09/20/2019 Uterine contractions during 09/11/2019 Class 1 obesity due to exces s calories without serious comorbidity with body mass index (BMI) of 34.0 to 34.9 in adult 11/27/2018 Nausea 11/02/2018 RUQ pain 11/02/2018 Diarrhea 11/02/2018 Polyhydramnios in third trimester macrosomia in third trimester Failed medical induction of labor S/P primary low transverse Resolved Problems Problem Noted Date Diagnosed Date Resolved Date Incompetent cervix in pregna ncy, antepartum, third trimester 03/20/2019 09/28/2019 History of delivery, currently 03/20/2019 09/28/2019 History of uterine inversion 03/20/2019 09/28/2019 Blood tests for routine gene ral physical examination 11/02/2018 03/09/2019 Immunizations Immunization Administration Dates Next Due Influenza, FLUARIX, FLULAVAL , FLUZONE (age 6 mo+) and AFLURIA, (age 3 y+), Quadv PF, 0.5mL 07/14/2019 TDaP, ADACEL (age 10y-64y), BOOSTRIX (age 10y+), IM, 0.5mL 08/07/2019 Family History Medical History Relation Name Comments No Known Problems Brother Diabetes Father COPD Maternal Grandfather Diabetes Maternal Grandfather Lung Cancer Maternal Grandfather COPD Maternal Grandmother Thyroid Disease Mother Lung Cancer Paternal Grandfather Relation Name Status Comments Brother Alive Father Alive Maternal Grandfather Maternal Grandmother Alive Mother Alive Paternal Grandfather Paternal Grandmother Social History Tobacco Use Types Packs/Day Years [...] Sign Reading Time Taken Comments Blood Pressure 110/68 11/06/2019 10:30 AM EDT Pulse 87 09/23/2019 8:30 AM EST Temperature 37 C (98.6 F) 09/23/2019 8:30 AM EST Respiratory Rate 16 09/23/2019 8:30 AM EST Oxygen Saturation 97% 09/20/2019 10:47 PM EST Inhaled Oxygen Concentration - - Weight 81.6 kg (180 lb) 11/06/2019 10:30 AM EDT Height 149.9 cm (4' 11 ) 11/06/2019 10:30 AM EDT Body Mass Index 36.36 11/06/2019 10:30 AM EDT Plan of Treatment Not on file Insurance [place] [employer] Advance Directives * Full Code (Latest Code Status on File) Date Activated Date Inactivated Comments 09/20/2019 8:25 PM 09/23/2019 7:31 PM * Full Code Date Activated Date Inactivated Comments 09/20/2019 6:07 PM 09/20/2019 8:25 PM * Full Code Date Activated Date Inactivated Comments 09/20/2019 5:08 AM 09/20/2019 6:07 PM * Full Code Date Activated Date Inactivated Comments 09/11/2019 8:39 PM 09/12/2019 1:16 PM * Full Code Date Activated Date Inactivated Comments 04/05/2019 9:03 AM 04/05/2019 3:52 PM Care Teams Glass Edger Relationship Specialty Start Date End Date Ya Morrow, LIFE SCIENCES DIRECTOR - DOOR TECHNICIAN PCP - General 02/07/19
--- OUTSIDE RECORDS SUMMARY | 2025-04-08 16:46 | XMS_ITS | CCD ---
Author Organization [facility] Care Team Providers Care Cross Tie Turner Name Role Phone MORROWRENZO ANNEERIE Admitting Unavailable MORROW, MARYLIN Attending Unavailable MORROW, MARYLIN Primary Care Unavailable MORROW, MARYLIN Admitting Unavailable MORROW, MARYLIN Attending Unavailable MORROW, MARYLIN Primary Care Unavailable REBECA CANO Consulting Unavailable MORROW, MARYLIN Consulting Unavailable Morrow, Marylin J Primary Care Provider LENORE NOLASCO Referring Unavailable MORROW, MARYLIN J Primary Care Unavailable LENORE NOLASCO W Admitting Unavailable HEDGESLENORE W Attending Unavailable MORROW, MARYLIN J Primary Care Unavailable HEDGES, LENORE W Referring Unavailable MORROW, MARYLIN J Primary Care Unavailable HEDGES, LENORE W Admitting Unavailable HEDGESLENORE W Attending Unavailable MORROW, MARYLIN J Primary Care Unavailable HEDGES, LENORE W Admitting Unavailable HEDGES, LENORE W Attending Unavailable MORROW, MARYLIN J Primary Care Unavailable HEDGES, LENORE W Referring Unavailable HEDGES, LENORE W Admitting Unavailable HEDGESLENORE W Attending Unavailable MORROW, MARYLIN J Primary Care Unavailable LAKISHAS, LENORE W Referring Unavailable MORROW, MARYLIN J Primary Care Unavailable HEDGESLENORE W Referring Unavailable MORROW, MARYLIN J Primary Care Unavailable Morrow SALES DEPARTMENT SUPERVISOR - [employer] DRAWER, Marylin J Primary Care Prov ider Kitty Hyatt Unavailable Martell Larson Attending Unavailab Martell Sanchez Admitting Unavailab Sean Da Silva Primary Care Unavailable TAMARA BRADY Referring Unavailable PRICE SAMSON Primary Care Unavailable Mali SALES DEPARTMENT SUPERVISOR-Price GILL Primary Care Provider Price Samson MD Unavailable MARK CANDELARIA Attending Unavailable Mali SALES DEPARTMENT SUPERVISORSHAY, Price L Primary Care Provider MALI, PRICE L Primary Care Unavailable TONY YATES Attending Unavailable YATES, TONY W Attending Unavailable YATES, TONY W Referring Unavailable MALI, PRICE L Primary Care Unavailable YATES, TONY W Attending Unavailable YATES, TONY W Referring Unavailable MALI, PRICE L Primary Care Unavailable MALI, PRICE L Referring Unavailable MALI, PRICE L Primary Care Unavailable MALI, PRICE L Attending Unavailable MALI, PRICE L Referring Unavailable MALI, PRICE L Primary Care Unavailable MALI, PRICE L Attending Unavailable MALI, PRICE L Referring Unavailable MALI, PRICE L Primary Care Unavailable MALI, PRICE L Attending Unavailable MALI, PRICE L Referring Unavailable MALI, PRICE L Primary Care Unavailable MALI, PRICE L Attending Unavailable MALI, PRICE L Referring Unavailable MALI, PRICE L Primary Care Unavailable MALI, PRICE L Attending Unavailable MALI, PRICE L Referring Unavailable MALI, PRICE L Primary Care Unavailable MALI, PRICE L Attending Unavailable MALI, PRICE L Referring Unavailable MALI, PRICE L Primary Care Unavailable MALI, PRICE L Attending Unavailable MALI, PRICE L Referring Unavailable MALI, PRICE L Primary Care Unavailable MALI, PRICE L Attending Unavailable MALI, PRICE L Referring Unavailable MALI, PRICE L Primary Care Unavailable Sean Main MD Primary Care Provider Xuan Oviedo APRN Attending Provider [phone] Allergies Allergy Classification Reported Allergen(s) Allergy Type Date of Onset Reaction(s) Facility (17 sources) cat dander; Translations: [CAT DANDER] Drug allergy (disorder) 0 Eye Swelling, Hives, Itching, Wheezing [facility] Repository (8 sources) buPROPion; Translations: [BUPROPION HCL] Drug Allergy 5 [facility] Medic[facility] Current Medications Medication Drug Class(es) Dates Sig (Normalized) Sig (Original) acetaminophen 325 mg oral tablet (7 sources) Start: 09-20-2019 take 650 mg by mouth every four hours as needed for pain, then take 4000 mg by mouth every twenty-four hours as needed for pain 650 mg, Oral, EVERY 4 HOURS PRN, Pain Mild (1-3), Fever, Fever >100.5 F (38 C) or incisional pain, Starting 09/20/19 at 2024 Maximum dose of acetaminophen is 4000 mg from all sources in 24 hours. Post-op Start: 04-05-2019 acetaminophen (TYLENOL) tablet 650 mg take 2 tablets by [facility] every six hours as needed for pain acetaminophen (TYLENOL) 325 MG tablet Take 650 mg by mouth every 6 hours as needed for Pain 0 Suspended acetaminophen 325 mg / HYDROcodone bitartrate 5 mg oral tablet (1 source) Opioid Agonist Start: 01-03-2024 End: 01-06-2024 HYDROcodone-acetaminophen (NORCO) 5-325 mg per tablet Indications: Cyst of right ovary Take 1 tablet by mouth every 6 (six) hours as needed for pain for up to 3 days. Max Daily Amount: 4 tablets 12 tablet 01/03/2024 01/06/2024 Active acetaminophen 325 mg / oxyCODONE hydrochloride 5 mg oral tablet (2 sources) Opioid Agonist Start: 09-23-2019 End: 09-26-2019 take 1 tablet by mouth every eight hours as needed for pain oxyCODONE-acetaminophen (PERCOCET) 5-325 MG per tablet Indications: S/P primary low transverse Take 1 tablet by mouth every 8 hours as needed for Pain for up to 3 days. 9 tablet 0 09/23/2019 09/26/2019 Active Start: 09-20-2019 oxyCODONE-acet aminophen (PERCOCET) 5-325 MG per tablet 1 tablet [id number] 200 actuat albuterol 0.09 mg/actuat metered dose inhaler (5 sources) beta2-Adrenergic Agonist Start: 03-21-2025 Albut annabella Sulfate 90 mcg/actuation HFA aerosol inhaler Active INHALATION March 21, 2025 12:00am Complies with drug therapy Start: 11-10-2024 take 2 puff(s) by in halation every six hours as needed for wheezing albuterol (PROVENTIL HFA;VENTOLIN HFA) 90 mcg/actuation inhaler Indications: Mild intermittent reactive airway disease without complication Inhale 2 puffs every 6 (six) hours as needed for wheezing or shortness of breath. 18 g 1 11/10/2024 Active amoxicillin 500 mg oral capsule (3 sources) Penicillin-class Antibacterial Start: 07-28-2024 take 1 capsule by mouth in the morning, then take 1 capsule by mouth at bedtime amoxicillin (Amoxil) 500 MG capsule TAKE 1 CAPSULE BY MOUTH IN THE MORNING AND 1 AT BEDTIME FOR 10 DAYS 07/28/2024 Active Start: 08-03-2022 take 1 capsule by [facility] every eight hours Amoxicillin 500 MG 1 capsule Orally three times a day for 10 day(s) Jul, Active calcium chloride 0.0014 meq/ ml / potassium chloride 0.004 meq/ml / sodium chloride 0.103 meq/ml / sodium lactate 0.028 meq/ml injectable solution (5 sources) Start: 09-20-2019 Intravenous, a t 25 mL/hr, CONTINUOUS, Starting Wed09/20/19 at 2044 While pitocin is running Start: 09-20-2019 End: 09-20-2019 lactated ringers bolus Start: 04-05-2019 lactated ringe rs infusion 1 ml carboprost 0.25 mg/ml injection (1 source) Prostaglandin Analog Start: 09-20-2019 250 mcg, Intramuscular, PRN, bleeding, Starting Wed09/20/19 at 2024 May repeat every 15 minutes up to a cumulative maximum dose of 1000 mcg, at physician's request. Post-op citalopram 20 mg oral tablet (4 sources) Serotonin Reuptake Inhibitor Start: 03-21-2025 take 1 tablet by mouth once daily Citalopram 20 mg tablet Active 20 MG PO Daily March 21, 2025 12:00am Complies with drug therapy Start: 03-09-2025 take 1 tablet by chrissy in the morning citalopram (CeleXA) 20 mg tablet Take 1 tablet (20 mg total) by mouth in the morning. 90 tablet 1 03/09/2025 Active Start: 01-18-2025 End: 03-09-2025 take 1 tablet by mouth in the morning citalopram (CeleXA) 10 mg tablet Take 1 tablet (10 mg total) by mouth in the morning. 30 tablet 1 01/18/2025 03/09/2025 Discontinued (Therapy completed) clindamycin 300 mg oral capsule (2 sources) Lincosamide Antibacterial Start: 08-04-2024 End: 08-18-2024 clindamycin (Cleocin) 300 MG capsule Indications: Strep tonsillitis Take 1 capsule (300 mg) by mouth in the morning and 1 capsule (300 mg) at noon and 1 capsule (300 mg) in the evening and 1 capsule (300 mg) before bedtime. Do all this for 14 days. 56 capsule 08/04/2024 08/18/2024 Active 1 ml diphenhydrAMINE hydrochloride 50 mg/ml cartridge (1 source) Histamine-1 Receptor Antagonist Start: 09-20-2019 25 mg, Intravenous, EVERY 6 HOURS PRN, Itching, Hives, Starting Wed09/20/19 at 2024, docusate sodium 100 mg oral capsule (1 source) Start: 09-20-2019 take 100 mg by mouth twice daily 100 mg, Oral, 2 TIMES DAILY, First dose on 09/20/19 at 2100 Do not crush or break. docusate sodium 50 mg / sennosides, [facility] 8.6 mg oral tablet (1 source) Start: 09-20-2019 take 1 tablet by mouth once daily as needed for constipation 1 tablet, Oral, DAILY PRN, Constipation, Starting Wed09/20/19 at 2024, 0.4 ml enoxaparin sodium 100 mg/ml prefilled syringe (1 source) Low Molecular Weight Heparin Start: 09-21-2019 inject 40 mg by subcutaneous injection once daily 40 mg, Subcutaneous, DAILY, First dose on Hannah 09/21/19 at 0830 Common Side Effects: &n bsp;Bruising and bleeding escitalopram 20 mg oral tablet (10 sources) Serotonin Reuptake Inhibitor Start: 07-13-2023 End: 09-08-2024 take 1 tablet by mouth once daily in the morning escitalopram (LEXAPRO) 20 mg tablet take 1 tablet by mouth every morning 90 tablet 1 12/23/2023 Active 60 actuat fluticasone propionate 0.25 mg/actuat / salmeterol 0.05 mg/actuat dry powder inhaler (3 sources) Corticosteroid, beta2-Adrenergic Agonist Start: 03-21-2025 Fluticasone Propion-Salmeter ol 250-50 mcg/dose blister with device Active 1 INH INHALATION Twice daily March 21, 2025 12:00am Complies with drug therapy Start: 01-18-2025 take 1 puff(s) by in halation in the morning fluticasone propion-salmeteroL (ADVAIR DISKUS) 250-50 mcg/dose DISKUS Inhale 1 puff in the morning and 1 puff before bedtime. 60 each 1 01/18/2025 Active hydrocortisone 25 mg/ml topical cream (7 sources) Corticosteroid Start: 08-25-2024 hydrocortisone (HYTONE) 2.5 % cream Apply 1 Application topically in the morning and 1 Application before bedtime. FOR HANDS. 30 g 1 08/25/2024 Active ibuprofen 800 mg oral tablet (12 sources) Nonsteroidal Anti-inflammatory Drug Start: 07-28-2024 End: 01-18-2025 take 1 tablet by mouth every eight hours as needed for pain ibuprofen (MOTRIN) 800 mg tablet Take 1 tablet (800 mg total) by mouth every 8 (eight) hours as needed for pain. 30 tablet 07/28/2024 01/18/2025 Discontinued (Therapy completed) Start: 02-13-2020 take 4 tablets by [facility] every twenty-four hours for pain Ibuprofen 600 mg tablet Active 600 MG PO Every 6 hours as needed for pain February 13, 2020 12:00am do not exceed 4 doses in a 24 hour period Complies with drug therapy Start: 09-21-2019 [facility] as needed for pain ibuprofen (ADVIL;MOTRIN) 800 MG tablet Take 1 tablet by mouth every 8 hours as needed for Pain 60 tablet 0 09/23/2019 Active lanolin 0.5 mg/mg topical ointment (1 source) Start: 09-20-2019 Topical, EVERY 1 HOUR PRN, Dry Skin, nipple discomfort, Starting 09/20/19 at 2024, Post-op LORazepam 0.5 mg oral tablet (14 sources) Benzodiazepine Start: 05-14-2023 take 1 tablet by mouth twice daily as needed for anxiety LORazepam (ATIVAN) 0.5 mg tablet Indications: Anxiety Take 1 tablet (0.5 mg total) by mouth 2 (two) times a day as needed for anxiety. 10 tablet 05/14/2023 Active 1 ml methylergonovine maleate 0.2 mg/ml injection (1 source) Ergot Derivative Start: 09-20-2019 200 mcg, Intramuscular, PRN, Bleeding, Starting Wed09/20/19 at 2024 PRN for post- hemorrhage, if not hypertensive. miSOPROStol 0.1 mg oral tablet (1 source) Prostaglandin E1 Analog Start: 09-20-2019 800 mcg, Rectal, PRN, Post- Hemorrhage, Starting Wed09/20/19 at 2024, For 1 dose Notify Physician prior to administration. Post-op 1 ml nalbuphine hydrochloride 10 mg/ml injection (1 source) Opioid Agonist/Antagonist Start: 09-20-2019 10 mg, Intravenous, EVERY 4 HOURS PRN, or itching, Starting Wed09/20/19 at 2024, Post-op 1 ml naloxone hydrochloride 0.4 mg/ml injection (1 source) Opioid Antagonist Start: 09-20-2019 0.4 mg, Intravenous, PRN, Opioid Reversal, Starting Wed09/20/19 at 2024, Post-op naproxen 500 mg oral tablet (2 sources) Nonsteroidal Anti-inflammatory Drug Start: 03-21-2025 take 1 tablet by mouth twice daily Naproxen 500 mg tablet Active 500 MG PO Twice daily March 21, 2025 12:00am Complies with drug therapy Start: 03-09-2025 take 1 tablet by chrissy th in the morning, then take 1 tablet by mouth at mealtime naproxen (NAPROSYN) 500 mg tablet Take 1 tablet (500 mg total) by mouth in the morning and 1 tablet (500 mg total) in the evening. Take with meals. 60 tablet 1 03/09/2025 Active 2 ml ondansetron 2 mg/ml injection (2 sources) Serotonin-3 Receptor Antagonist Start: 09-20-2019 4 mg, Intravenous, EVERY 6 HOURS PRN, Nausea, nausea, Starting Wed09/20/19 at 2024, Start: 04-05-2019 ondansetron (Z OFRAN) injection 4 mg oxytocin (PITOCIN) 30 units in 500 mL infusion (1 source) Start: 09-20-2019 oxytocin (JEFE EDITH) 30 units in 500 mL infusion oxytocin (PITOCIN) 30 Units in sodium chloride 0.9 % 500 mL infusion (2 sources) Start: 09-20-2019 oxytocin (JEFE EDITH) 30 Units in sodium chloride 0.9 % 500 mL infusion Start: 09-20-2019 End: 09-20-2019 oxytocin (PITOCIN) 30 Units in sodium chloride 0.9 % 500 mL infusion predniSONE 20 mg oral tablet (3 sources) Start: 03-21-2025 take 3 tablets by mouth once daily, then take 2 tablets by mouth once daily, then take 1 tablet by mouth once daily Prednisone 20 mg tablet Active 20 MG PO .COMPLEX March 21, 2025 12:00am Take 3 tablets by mouth once daily for 3 days, then 2 tablets by mouth once daily for 3 days, then 1 tablet by mouth once daily for 3 days Complies with drug therapy Start: 08-03-2022 take 1 tablet by chrissy th every twelve hours predniSONE 20 MG 1 tablet Orally 2 times a day for 5 day(s) Jul, Active Start: 09-23-2019 End: 09-28-2019 predniSONE (DELTASONE) table t 60 mg GC-Rjk-PW-Arnot-3 ( GUMMIES/DHA & FA) 0.4-32.5 MG CHEW (6 sources) take 0.4-32.5 mg by mouth once PH-Eqq-QP-Arnot-3 ( GUMMIES/DHA & FA) 0.4-32.5 MG CHEW Take 1 tablet by mouth 0 Suspended take 0.4-32.5 mg by mouth once P renatal BR-Wbd-TD-Arnot-3 ( GUMMIES/DHA & FA) 0.4-32.5 MG CHEW Take 1 tablet by mouth 0 Active vitamin 27-1 MG tablet 1 tablet (1 source) Start: 09-20-2019 take 1 tablet by mouth once daily 1 tablet, Oral, DAILY, First dose on Wed09/20/19 at 2100 Begin when normal bowel activity resumes. simethicone 80 mg chewable tablet (1 source) Start: 09-20-2019 take 80 mg by mouth every six hours as needed 80 mg, Oral, EVERY 6 HOURS PRN, Cramping, Flatulence, Starting Wed09/20/19 at 2024, 3 ml sodium chloride 9 mg/ml injection (4 sources) Start: 09-20-2019 10 mL, Intrave nous, EVERY 12 HOURS SCHEDULED (2 times per day), First dose on Wed09/20/19 at 2100, Start: 09-20-2019 take 10 mL intravenous route o nce 10 mL, Intravenous, PRN, Line Care, Starting Wed09/20/19 at 2024 After every IV line use Start: 04-05-2019 sodium chlorid e flush 0.9 % injection 10 mL traMADol hydrochloride 50 mg oral tablet (1 source) Opioid Agonist Start: 02-13-2020 take 50-100 mg by mouth every six hours as needed for pain Tramadol 50 mg tablet Active 50 - 100 MG PO Q6H as needed for pain 10 February 13, 2020 12:00am Complies with drug therapy triamcinolone acetonide 1 mg/ml topical cream (11 sources) Corticosteroid Start: 08-25-2024 End: 10-13-2024 triamcinolone (KENALOG) 0.1 % cream Apply 1 Application topically in the morning and 1 Application before bedtime. Limbs, trunk, ankles wrists. 80 g 1 10/13/2024 Active Start: 05-14-2023 End: 01-25-2024 triamcinolone (KENALOG) 0.1 % cream Apply 1 Application topically in the morning and 1 Application before bedtime. 30 g 1 05/14/2023 01/25/2024 Discontinued vortioxetine 20 mg oral tablet (7 sources) Start: 11-20-2024 End: 01-18-2025 take 1 tablet by mouth in the morning vortioxetine (TRINTELLIX) 20 mg tablet Take 1 tablet (20 mg total) by mouth in the morning. 90 tablet 1 11/20/2024 01/18/2025 Discontinued (Therapy completed) Start: 09-08-2024 End: 11-20-2024 take 1 tablet by mouth in the morning vortioxetine (TRINTELLIX) 10 mg tablet Take 1 tablet (10 mg total) by mouth in the morning. 30 tablet 1 10/13/2024 11/20/2024 Discontinued (Therapy completed) Completed/Discontinued Medications Medication Drug Class(es) Dates Sig (Normalized) Sig (Original) 24 hr buPROPion hydrochloride 150 mg extended release oral tablet (12 sources) Aminoketone Start: 06-22-2024 take 1 tablet by mouth every twenty-four hours in the morning buPROPion XL (Wellbutrin XL) 150 MG 24 hr tablet Take 150 mg by mouth in the morning. 06/22/2024 Active Start: 02-06-2020 End: 08-25-2024 take 1 tablet by mouth once daily in the morning buPROPion XL (WELLBUTRIN XL) 150 mg 24 hr tablet Take 1 tablet (150 mg total) by mouth every morning. 30 tablet 1 06/22/2024 08/25/2024 Discontinued (Ineffective) Start: 11-06-2019 take 1 tablet by chrissy th once daily in the morning buPROPion (WELLBUTRIN XL) 150 MG extended release tablet Indications: Irritability and anger Take 1 tablet by mouth every morning 30 tablet 12 11/06/2019 Active Start: 05-15-2019 take 150 mg by mouth once daily in the morning 150 mg, Oral, EVERY MORNING, First dose on Hannah 09/21/19 at 0900 Do not crush or break. cariprazine 1.5 mg oral capsule (3 sources) Atypical Antipsychotic Start: 04-29-2023 End: 01-25-2024 take 1 capsule by mouth in the morning cariprazine (VRAYLAR) 1.5 mg capsule Take 1 capsule (1.5 mg total) by mouth in the morning. 30 capsule 1 04/29/2023 01/25/2024 Discontinued ceFAZolin (ANCEF) 2 g in dextrose 5 % 100 mL IVPB (1 source) Start: 04-05-2019 End: 04-05-2019 ceFAZolin (ANCEF) 2 g in dextrose 5 % 100 mL IVPB cefOXitin (MEFOXIN) 2 g in dextrose 5% 50 mL (mini-bag) (1 source) Start: 09-20-2019 End: 09-20-2019 cefOXitin (MEFOXIN) 2 g in dextrose 5% 50 mL (mini-bag) citric acid 66.8 mg/ml / sodium citrate 100 mg/ml oral solution (1 source) Calculi Dissolution Agent, Anti-coagulant Start: 09-20-2019 End: 09-20-2019 citric acid-sodium citrate (BICITRA) solution 30 mL Start: 09-20-2019 End: 09-20-2019 citric acid-sodium citrate ( BICITRA) solution 30 mL Elastic Bandages & Supports MISC (4 sources) Start: 08-07-2019 End: 09-23-2019 Elastic Bandages & Supports MISC Indications: 32 weeks gestation of , Leg swelling in in third trimester 1 Units by Does not apply route daily Medical compression thigh high 20-30 mmHg ready to wear Dx venous insufficiency 2 each 0 08/07/2019 09/23/2019 Discontinued (Stop Taking at Discharge) Start: 08-07-2019 Elastic Bandag es & Supports MISC Indications: 32 weeks gestation of , Leg swelling in in third trimester 1 Units by Does not apply route daily Medical compression thigh high 20-30 mmHg ready to wear Dx venous insufficiency 2 each 0 08/07/2019 Suspended Start: 08-07-2019 Elastic Bandag es & Supports MISC Indications: 32 weeks gestation of , Leg swelling in in third trimester 1 Units by Does not apply route daily Medical compression thigh high 20-30 mmHg ready to wear Dx venous insufficiency 2 each 0 08/07/2019 Active 2 ml famotidine 10 mg/ml injection (1 source) Histamine-2 Receptor Antagonist Start: 09-20-2019 End: 09-20-2019 famotidine (PEPCID) injection 20 mg Start: 09-20-2019 End: 09-20-2019 famotidine (PEPCID) injectio n 20 mg HYDROXYprogesterone Caproate POWD (4 sources) Start: 04-13-2019 End: 09-23-2019 HYDROXYprogesterone Caproate POWD Start: 04-13-2019 HYDROXYprogest erone Caproate POWD hydrOXYzine pamoate 50 mg oral capsule (1 source) Antihistamine Start: 09-12-2019 End: 09-12-2019 hydrOXYzine (VISTARIL) capsule 50 mg Start: 09-12-2019 End: 09-12-2019 hydrOXYzine (VISTARIL) capsu le 50 mg 1 ml ketorolac tromethamine 15 mg/ml cartridge (1 source) Nonsteroidal Anti-inflammatory Drug, Cyclooxygenase Inhibitor Start: 09-21-2019 End: 09-21-2019 30 mg, Intravenous, EVERY 6 HOURS, First dose on Hannah 09/21/19 at 0200, For 4 doses Do not administer for more than 5 days. levonorgestrel 0.903447 mg/hr intrauterine system (2 sources) Progestin, Progestin-containing Intrauterine Device Start: 01-25-2024 End: 01-25-2024 levonorgestreL (MIRENA) 21 mcg/24 hr (8 yrs) 52 mg IUD 1 each Start: 01-25-2024 End: 01-25-2024 1 each (52 mg), intrauterine , Once, On Wed01/25/24 at 1345, For 1 dose, Has patient consent been obtained? Yes, Indication: Menorrhagia loratadine 10 mg oral tablet (12 sources) Start: 06-22-2024 End: 03-09-2025 take 1 tablet by mouth in the morning loratadine (CLARITIN) 10 mg tablet Take 1 tablet (10 mg total) by mouth in the morning. 14 tablet 1 08/25/2024 03/09/2025 Discontinued (Patient Stopped On Own) 2 ml metoclopramide 5 mg/ml prefilled syringe (1 source) Dopamine-2 Receptor Antagonist Start: 09-20-2019 End: 09-20-2019 metoclopramide (REGLAN) injection 10 mg Start: 09-20-2019 End: 09-20-2019 metoclopramide (REGLAN) inje ction 10 mg norethindrone 0.35 mg oral tablet (2 sources) Start: 02-06-2020 End: 02-13-2020 take 1 tablet by mouth once daily in the morning Norethindrone (Contraceptive) (Norlyda) 0.35 mg tablet Discontinued 0.35 MG PO Every morning February 06, 2020 12:00am February 13, 2020 2:47pm Start: 11-06-2019 take 1 tablet by chrissy th once daily norethindrone (ORTHO MICRONOR) 0.35 MG tablet Indications: Irritability and anger Take 1 tablet by mouth daily 28 tablet 12 11/06/2019 Active Problems Active Problems Problem Classification Problem Date Documented Date Episodic/Chronic Acute and chronic tonsillitis (1 source) Hypertrophy of tonsils; Translations: [Hypertrophy of tonsils] Onset: 07-28-2024 Chronic Allergic reactions (3 sources) Atopic dermatitis; Translations: [Atopic dermatitis, unspecified] Onset: 03-09-2025 08-25-2024 Chronic Allergic reactions (2 sources) Contact dermatitis due to poison [place]; Translations: [Allergic contact dermatitis due to plants, except food] 03-21-2025 Episodic Anxiety disorders (20 sources) Anxiety; Translations: [Anxiety disorder, unspecified] Onset: 11-27-2022 06-25-2024 Chronic Asthma (7 sources) Mild intermittent asthma; Translations: [Mild intermittent asthma, uncomplicated] Onset: 11-10-2024 11-10-2024 Chronic Headache; including migraine (2 sources) Tension-type headache; Translations: [Tension-type headache, unspecified, not intractable] Onset: 03-09-2025 03-09-2025 Chronic Immunizations and screening for infectious disease (2 sources) Encounter for screening for infections with a predominantly sexual mode of transmission; Translations: [Patient encounter status] Onset: 01-25-2024 01-25-2024 Episodic Menstrual disorders (20 sources) Intermenstrual bleeding - irregular; Translations: [Excessive and frequent menstruation with irregular cycle] Onset: 10-22-2022 10-22-2022 Chronic Miscellaneous mental health disorders (16 sources) Primary insomnia; Translations: [Primary insomnia] Onset: 10-22-2022 10-22-2022 Chronic Mood disorders (20 sources) Moderate recurrent major depression; Translations: [Major depressive disorder, recurrent, moderate] Onset: 11-27-2022 06-25-2024 Chronic Nutritional deficiencies (14 sources) Vitamin D deficiency; Translations: [Vitamin D deficiency, unspecified] Onset: 10-22-2022 10-22-2022 Chronic Other and unspecified benign neoplasm (1 source) Senile angioma; Translations: [Hemangioma of skin and subcutaneous tissue] 10-13-2024 Episodic Other circulatory disease (1 source) Upper respiratory tract finding; Translations: [Other specified symptoms and signs involving the circulatory and respiratory systems] 06-22-2024 Episodic Other circulatory disease (1 source) Elevated blood pressure; Translations: [Elevated blood-pressure reading, without diagnosis of hypertension] 03-09-2025 Episodic Other ear and sense organ disorders (2 sources) Bilateral hearing loss; Translations: [Unspecified hearing loss, bilateral] 03-09-2025 Chronic Other ear and sense organ disorders (1 source) Unspecified hearing loss, bilateral; Translations: [Unspecified hearing loss, bilateral] Onset: 03-09-2025 Chronic Other female genital disorders (14 sources) Postcoital bleeding; Translations: [Postcoital and contact bleeding] Onset: 10-22-2022 10-22-2022 Chronic Other female genital disorders (1 source) Paula; Translations: [Paula] 01-04-2024 Chronic Other nervous system disorders (14 sources) Carpal tunnel syndrome of right wrist; Translations: [Carpal tunnel syndrome, right upper limb] Onset: 10-22-2022 10-22-2022 Chronic Other nervous system disorders (3 sources) [place] palsy of left side of face; 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] Onset: 09-23-2019 09-23-2019 Other nutritional; endocrine; and metabolic disorders (6 sources) Obesity; Translations: [Class 1 obesity due to excess calories without serious comorbidity with body mass index (BMI) of 34.0 to 34.9 in adult] Onset: 11-27-2018 02-07-2019 Chronic Other nutritional; endocrine; and metabolic disorders (14 sources) Obesity caused by energy imbalance; Translations: [Class 1 obesity due to excess calories without serious comorbidity with body mass index (BMI) of 34.0 to 34.9 in adult] Onset: 11-27-2018 11-27-2018 Chronic Other nutritional; endocrine; and metabolic disorders (14 sources) Body mass index 30+ - obesity; Translations: [Obesity, unspecified] Onset: 10-22-2022 10-22-2022 Chronic Other nutritional; endocrine; and metabolic disorders (2 sources) Severe obesity; Translations: [Class 3 severe obesity due to excess calories with serious comorbidity and body mass index (BMI) of 40.0 to 44.9 in adult ([facility])] 01-18-2025 Chronic Other nutritional; endocrine; and metabolic disorders (1 source) Body mass index (BMI) 40.0-44.9, adult; Translations: [Body mass index (BMI) 40.0-44.9, adult] Onset: 03-09-2025 Chronic Other upper respiratory disease (1 source) Allergic rhinitis due to pollen; Translations: [Allergic rhinitis due to pollen] 01-18-2025 Chronic Residual codes; unclassified (14 sources) Sleep apnea; Translations: [Sleep apnea, unspecified] Onset: 10-22-2022 10-22-2022 Chronic Residual codes; unclassified (1 source) Hypersomnia; Translations: [Hypersomnia, unspecified] 03-21-2025 Chronic Residual codes; unclassified (1 source) Idiopathic hypersomnia; 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] 03-21-2025 Chronic Residual codes; unclassified (3 sources) H/O: section; Translations: [S/P primary low transverse ] 09-20-2019 Episodic Unclassified (7 sources) Patient encounter status; Translations: [Routine follow-up] Onset: 11-02-2018 Resolved: 03-09-2019 03-09-2019 Unclassified (2 sources) macrosomia in third trimester 09-20-2019 Unclassified (4 sources) Finding of uterine contractions; Translations: [Uterine contractions during ] Onset: 09-11-2019 09-11-2019 Unclassified (1 source) History of uterine inversion Onset: 03-20-2019 03-20-2019 Unclassified (1 source) Obesity, class 3; Translations: [Obesity, class 3] Onset: 03-09-2025 Unclassified (1 source) Go over genesight results Onset: 09-08-2024 Unclassified (1 source) Weight Check Onset: 06-22-2024 Past or Other Problems Problem Classification Problem Date Documented Da te Episodic/Chronic Abdominal pain (20 sources) Right upper quadrant pain; Translations: [Right upper quadrant pain] Onset: 11-02-2018 02-07-2019 Episodic Contraceptive and procreative management (1 source) Patient encounter status; Translations: [Encounter for other general counseling and advice on contraception] 01-04-2024 Episodic Early or threatened labor (14 sources) Finding of uterine contractions; Translations: [False labor, unspecified] Onset: 09-11-2019 10-22-2022 Episodic Mood disorders (11 sources) Mood disorders Onset: 06-22-2024 Resolved: 03-09-2025 06-22-2024 Nausea and vomiting (20 sources) Nausea; Translations: [Nausea] Onset: 11-02-2018 02-07-2019 Episodic Other and unspecified benign neoplasm (1 source) Hemangioma of skin and subcutaneous tissue; Translations: [Hemangioma of skin and subcutaneous tissue] Onset: 10-13-2024 Episodic Other circulatory disease (1 source) Other specified symptoms and signs involving the circulatory and respiratory systems; Translations: [Other specified symptoms and signs involving the circulatory and respiratory systems] Onset: 06-22-2024 Episodic Other complications of ; puerperium affecting management of mother (17 sources) Failed medical induction of labor ; Translations: [Failed medical induction of labor] Onset: 10-22-2022 09-20-2019 Episodic Other complications of (15 sources) Maternal care for excessive growth, third trimester, not applicable or unspecified; Translations: [Suspected macroscopic fetus] Onset: 10-22-2022 09-20-2019 Episodic Other female genital disorders (7 sources) Cervical incompetence; Translations: [Incompetent cervix in , antepartum, third trimester] Onset: 03-20-2019 Resolved: 09-28-2019 09-08-2019 Episodic Other female genital disorders (6 sources) H/O: premature delivery; Translations: [History of delivery, currently ] Onset: 03-20-2019 Resolved: 09-28-2019 03-20-2019 Episodic Other female genital disorders (1 source) Suppression of menstruation; Translations: [Other specified conditions associated with female genital organs and menstrual cycle] 01-25-2024 Episodic Other female genital disorders (1 source) Other specified noninflammatory disorders of cervix uteri; Translations: [Other specified noninflammatory disorders of cervix uteri] Onset: 01-02-2024 Episodic Other gastrointestinal disorders (20 sources) Diarrhea; Translations: [Diarrhea, unspecified] Onset: 11-02-2018 02-07-2019 Episodic Other nervous system disorders (14 sources) [place] palsy of left side of face; 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] Onset: 09-23-2019 10-22-2022 Episodic Other and delivery including normal (17 sources) Term ; Translations: [Encounter for supervision of normal , unspecified, unspecified trimester] Onset: 09-20-2019 09-20-2019 Episodic Other upper respiratory infections (6 sources) Acute pharyngitis, unspecified; Translations: [Streptococcal pharyngitis] Onset: 07-28-2024 Episodic Ovarian cyst (1 source) Unspecified ovarian cyst, right side; Translations: [Unspecified ovarian cyst, right side] Onset: 01-02-2024 Episodic Polyhydramnios and other problems of amniotic cavity (17 sources) Polyhydramnios; Translations: [Polyhydramnios, third trimester, not applicable or unspecified] Onset: 10-22-2022 09-20-2019 Episodic Residual codes; unclassified (5 sources) Personal history of other complications of , childbirth and the puerperium; Translations: [H/O: uterine inversion] Onset: 03-20-2019 Resolved: 09-28-2019 09-28-2019 Episodic Residual codes; unclassified (1 source) Gestation period, 36 weeks Episodic Unclassified (11 sources) Onset: 12-21-2022 Resolved: 03-09-2025 12-21-2022 Results Test Name Value Interpretation Reference Range Facility COMPREHENSIVE METABOLIC PANE [facility] 03-09-2025 Albumin [Mass/Vol] 4.4 g/dL Normal 3.2-5.3 [facility] Comment on above: Performed By: #### C MP #### [facility] ([facility]) [address] [place] [address] VIR ALP [Catalytic activity/Vol] 84 U/L Normal 39-130 [facility] Comment on above: Performed By: #### C MP #### [facility] ([facility]) [address] [place] [address] VIR ALT [Catalytic activity/Vol] 21 U/L Normal <=31 [facility] Comment on above: Performed By: #### C MP #### [facility] ([facility]) [address] [place] [address] VIR Anion gap [Moles/Vol] 11 mmol/L Normal 5-15 [facility] Comment on above: Performed By: #### C MP #### [facility] ([facility]) [address] [place] [address] VIR AST [Catalytic activity/Vol] 17 U/L Normal <=41 [facility] Comment on above: Performed By: #### C MP #### [facility] ([facility]) [address] [place] [address] VIR Bilirubin [Mass/Vol] 0.5 mg/dL Normal 0.3-1.2 [facility] Comment on above: Performed By: #### C MP #### [facility] ([facility]) [address] [place] [address] VIR Calcium [Mass/Vol] 9.1 mg/dL Normal 8.5-10.5 [facility] Comment on above: Performed By: #### C MP #### [facility] ([facility]) [address] [place] [address] VIR Chloride [Moles/Vol] 101 mmol/L Normal 98-109 [facility] Comment on above: Performed By: #### C MP #### [facility] ([facility]) [address] [place] [address] VIR CO2 [Moles/Vol] 26 mmol/L Normal 22-32 [facility] Comment on above: Performed By: #### C MP #### [facility] ([facility]) [address] [place] [address] VIR Creatinine [Mass/Vol] 0.73 mg/dL Normal 0.40-1.00 [facility] Comment on above: Result Comment: METH OD TRACEABLE TO IDMS STANDARD Performed By: #### C MP #### [facility] ([facility]) [address] [place] [address] VIR EGFR (CKD-EPI) NON-RACE DEPENDENT >^90 Normal >=60 [facility] Comment on above: Result Comment: Repo rted eGFR is based on the CKD-EPI 1 equation that does not use a race coefficient. Performed By: #### C MP #### [facility] ([facility]) [address] [place] [address] VIR Glucose [Mass/Vol] 154 mg/dL High 65-99 [facility] Comment on above: Performed By: #### C MP #### [facility] ([facility]) [address] [place] [address] VIR Potassium [Moles/Vol] 4.0 mmol/L Normal 3.5-5.0 [facility] Comment on above: Performed By: #### C MP #### [facility] ([facility]) [address] [place] [address] VIR Protein [Mass/Vol] 7.3 g/dL Normal 6.0-8.0 [facility] Comment on above: Performed By: #### C MP #### [facility]) [address] [place] [address] VIR Sodium [Moles/Vol] 138 mmol/L Normal 134-146 [facility] Comment on above: Performed By: #### C MP #### [facility]) [address] [place] [address] VIR Urea nitrogen [Mass/Vol] 10 mg/dL Normal 5-23 [facility] Comment on above: Performed By: #### C MP #### [facility]) [address] [place] [address] VIR LIPID PROFILEon 03-09-2025 Cholesterol [Mass/Vol] 210 mg/dL High 150-200 [facility] Comment on above: Performed By: #### L IPR #### [facility]) [address] [place] [address] VIR Cholesterol in HDL [Mass/Vol] 44 mg/dL Normal >39 [facility] Comment on above: Result Comment: HDL <40 mg/dL - High Risk HDL > or = 40mg/dL- Desirable HDL >60 mg/dL - Negative Risk Performed By: #### L IPR #### [facility]) [address] [place] [address] VIR Cholesterol in LDL [Mass/Vol] 138 mg/dL High <130 [facility] Comment on above: Result Comment: LDL <100 mg/dL - Desirable LDL >160 mg/dL - High Risk Performed By: #### L IPR #### [facility]) [address] [place] [address] VIR CHOLESTEROL:HDL 4.8 Normal 1.0-5.0 [facility] Comment on above: Performed By: #### L IPR #### [facility]) [address] [place] [address] VIR Triglyceride [Mass/Vol] 141 mg/dL Normal 27-150 [facility] Comment on above: Performed By: #### L IPR #### [facility]) [address] [place] [address] VIR VERY LOW LIPOPROTEIN 28 mg/dL Normal 0-30 [facility] Comment on above: Performed By: #### L IPR #### [facility]) [address] [place] [address] VIR POCT Influenza A/Influenza B /SARS-COV-2 VeritorOrdered By: Jovana Johnson on 06-22-2024 External Poct Influenza A Antigen Negative [facility] External Poct Influenza B Antigen Negative [facility] SARS-CoV-2 (COVID-19) Ag IA.rapid Ql (Resp) Negative [facility] CHLAMYDIA/GC BY PCRon 2023 CHLAMYDIA/GC BY PCR SPECIMEN SOURCE CERVICAL SWAB CHLAMYDIA DNA(PCR) Negative (qualifier value) Chlamydia trachomatis not detected by nucleic acid amplification. This does not exclude the possibility of infection because results are dependent on adequate specimen collection. GONORRHOEAE DNA(PCR) Negative (qualifier value) Neisseria gonorrhoeae not detected by nucleic acid amplification. This does not exclude the possibility of infection because results are dependent on adequate specimen collection. Normal [facility] Comment on above: Performed By: #### C GS #### [facility] ([id number]) [address] [place] [address] POCT , urineon 01-14 Beta HCG ( test) Ql (U) Negative [facility] Internal Medical Genetics Director Check Completed and Passed Yes [facility] Interpretation and review of laboratory results Normal [facility] US PELVIC WITH TRANSVAGINAL AND DUPLEXon 01-03-2024 US PELVIC WITH TRANSVAGINAL AND DUPLEX US PELVIC WITH TRANSVAGINAL AND DUPLEX CLINICAL INFORMATION: Evaluate for Ovarian Torsion. TECHNIQUE: Real-time transabdominal and transvaginal sonographic evaluation of the pelvis was performed with gutierrez scale and color flow imaging. Transabdominal imaging performed to evaluate for extra adnexal pelvic pathology. Transvaginal imaging performed for better delineation of the adnexal and endometrial contents. Real time gutierrez scale, color flow imaging and duplex spectral Doppler waveform analysis evaluation was performed of the major arterial inflow and venous outflow structures of the ovaries with arterial and venous spectral waveforms obtained and reviewed in view of the clinical history of Evaluate for Ovarian Torsion . Duplex spectral Doppler document arterial and venous spectral waveforms documented within the major arterial inflow and venous outflow of both ovaries. Arterial and venous Doppler duplex spectral waveforms were evaluated. COMPARISON: No relevant prior studies available. FINDINGS: Uterus is 10.4 x 3.9 x 5.2 cm. Endometrial stripe is 7.8 mm in thickness which is within the range of normal for premenopausal female. Nabothian cyst in the cervix measuring 1.4 x 1.0 cm in size. Right ovary is 3.4 x 2.6 x 4.1 cm. Small cyst present in the right ovary measuring 1.7 x 2.1 x 3.0 cm. Appears to be a simple cyst in this patient's age group no further evaluation is necessary. The left ovary is 2.8 x 1.5 x 2.2 cm. No dominant cyst or mass. Normal Doppler flow to both ovaries. IMPRESSION: * Nabothian cyst in the cervix measurement given above * Small cyst in the left ovary appears to be a simple cyst. In this patient's age group no further evaluation is necessary. Finalized by Fito Ogden MD on 01/03/2024 2:18 AM Normal [facility] CBC AND AUTO DIFFon 01-02-20 24 ABSOLUTE BASOPHIL 0.0 X10E9/L Normal 0.0-0.2 [facility] Comment on above: Performed By: #### C ANGELA NAM, 3040-3 #### [facility] ([id number]) [address] [place] [address] ABSOLUTE NEUTROPHIL 13.4 X10E9/L High 1.5-6.6 [facility] Comment on above: Performed By: #### C ANGELA NAM, 3040-3 #### [facility] ([id number]) [address] [place] [address] 27656 Basophils/100 WBC (Bld) 0.2 % Normal [facility] Comment on above: Performed By: #### Renetta NAM CMP, 3039-3 #### [facility] ([id number]) [address] [place] [address]17 Eosinophils (Bld) [#/Vol] 0.1 10*3/uL Normal 0.0-0.4 [facility] Comment on above: Performed By: #### Renetta NAM CMP, 3039-10 #### [facility] ([id number]) [address] [place] [address] 26608 Eosinophils/100 WBC (Bld) 0.9 % Normal [facility] Comment on above: Performed By: #### Renetta NAM CMP, 3039-10 #### [facility] ([id number]) [address] [place] [address] 54499 Erythrocyte distribution width (RBC) [Ratio] 14.4 % Normal 11.5-15.0 [facility] Comment on above: Performed By: #### Renetta NAM CMP, 3039-10 #### [facility] ([id number]) [address] [place] [address] 41948 Hematocrit (Bld) [Volume fraction] 37.0 % Normal 35-47 [facility] Comment on above: Performed By: #### Renetta NAM CMP, 3039-10 #### [facility] ([id number]) [address] [place] [address] 41114 Hemoglobin (Bld) [Mass/Vol] 12.4 g/dL Normal 11.7-15.5 [facility] Comment on above: Performed By: #### Renetta NAM CMP, 3039-3 #### [facility] ([id number]) [address] [place] [address] 68661 Lymphocytes (Bld) [#/Vol] 1.3 10*3/uL Normal 1.0-3.5 [facility] Comment on above: Performed By: #### Renetta NAM CMP, 3039-10 #### [facility] ([id number]) [address] [place] [address] 05092 Lymphocytes/100 WBC (Bld) 8.5 % Normal [facility] Comment on above: Performed By: #### Renetta NAM CMP, 3039-10 #### [facility] ([id number]) [address] [place] [address] 07462 MCH (RBC) [Entitic mass] 27.1 pg Normal 27-34 [facility] Comment on above: Performed By: #### Renetta NAM CMP, 3039-10 #### [facility] ([id number]) [address] [place] [address] 98441 MCHC (RBC) [Mass/Vol] 33.6 g/dL Normal 32-36 [facility] Comment on above: Performed By: #### Renetta NAM CMP, 3039-10 #### [facility] ([id number]) [address] [place] [address] 25578 MCV (RBC) [Entitic vol] 81 fL Normal 80-100 [facility] Comment on above: Performed By: #### Renetta NAM CMP, 3039-10 #### [facility] ([id number]) [address] [place] [address] 38357 Monocytes (Bld) [#/Vol] 0.8 10*3/uL Normal 0-0.9 [facility] Comment on above: Performed By: #### Renetta NAM CMP, 3039-10 #### [facility] ([id number]) [address] [place] [address] 04198 Monocytes/100 WBC (Bld) 4.9 % Normal [facility] Comment on above: Performed By: #### Renetta NAM CMP, 3040-3 #### [facility] ([id number]) [address] [place] [address] 36053 Neutrophils/100 WBC (Bld) 85.5 % Normal [facility] Comment on above: Performed By: #### C BCA, CMP, 3039-3 #### [facility] ([id number]) [address] [place] [address] 63558 Platelet mean volume (Bld) [Entitic vol] 8.5 fL Normal 7-12 [facility] Comment on above: Performed By: #### C BCA, CMP, 3039-3 #### [facility] ([id number]) [address] [place] [address] 35223 Platelets (Bld) [#/Vol] 304 10*3/uL Normal 150-450 [facility] Comment on above: Performed By: #### C BCA, CMP, 3039-3 #### [facility] ([id number]) [address] [place] [address] 82958 RBC COUNT 4.59 X10E12/L Normal 3.80-5.20 [facility] Comment on above: Performed By: #### C BCA, CMP, 3039-3 #### [facility] ([id number]) [address] [place] [address] 56522 WBC (Bld) [#/Vol] 15.7 10*3/uL High 4.0-11.0 [facility] Comment on above: Performed By: #### C BCA, CMP, 3039-3 #### [facility] ([id number]) [address] [place] [address] 85536 COMPREHENSIVE METABOLIC PANE Doc 01-02-2024 Albumin [Mass/Vol] 3.7 g/dL Normal 3.2-5.3 [facility] Comment on above: Performed By: #### C BCA, CMP, 3039-3 #### [facility] ([id number]) [address] [place] [address] 83457 ALP [Catalytic activity/Vol] 83 U/L Normal 39-130 [facility] Comment on above: Performed By: #### C VIV, CMP, 3040-3 #### [facility] ([id number]) [address] [place] [address] 89794 ALT [Catalytic activity/Vol] 30 U/L Normal 0-31 [facility] Comment on above: Performed By: #### C VIV, CMP, 3039-3 #### [facility] ([id number]) [address] [place] [address] 61633 Anion gap [Moles/Vol] 7 mmol/L Normal 5-15 [facility] Comment on above: Performed By: #### Renetta NAM CMP, 3039-3 #### [facility] ([id number]) [address] [place] [address] 12437 AST [Catalytic activity/Vol] 28 U/L Normal 0-41 [facility] Comment on above: Performed By: #### Renetta NAM CMP, 3 #### [facility] ([id number]) [address] [place] [address] 29121 Bilirubin [Mass/Vol] 0.5 mg/dL Normal 0.3-1.2 [facility] Comment on above: Performed By: #### C VIV, CMP, 3039-3 #### [facility] ([id number]) [address] [place] [address] 97366 Calcium [Mass/Vol] 8.5 mg/dL Normal 8.5-10.5 [facility] Comment on above: Performed By: #### Renetta BCA, CMP, 0-3 #### [facility] ([id number]) [address] [place] [address] 48192 Chloride [Moles/Vol] 104 mmol/L Normal 98-109 [facility] Comment on above: Performed By: #### C ANGELA NAM, 3040-3 #### [facility] ([id number]) [address] [place] [address] 41114 CO2 [Moles/Vol] 23 mmol/L Normal 22-32 [facility] Comment on above: Performed By: #### C ANGELA NAM, 3039-3 #### [facility] ([id number]) [address] [place] [address] 20465 Creatinine [Mass/Vol] 0.83 mg/dL Normal 0.40-1.00 [facility] Comment on above: Result Comment: METH OD TRACEABLE TO IDMS STANDARD Performed By: #### C ANGELA NAM, 3040-3 #### [facility] ([id number]) [address] [place] [address] 53857 eGFR (CKD-EPI) NON-RACE DEPENDENT >90 Normal >59 [facility] Comment on above: Result Comment: Reported eGFR is based on the CKD-EPI 2020 equation that does not use a race coefficient. Performed By: #### C ANGELA NAM, 3040-3 #### [facility] ([id number]) [address] [place] [address] 50550 Glucose [Mass/Vol] 124 mg/dL High 65-99 [facility] Comment on above: Performed By: #### Renetta NAM CMP, 3039-3 #### [facility] ([id number]) [address] [place] [address] 74359 Potassium [Moles/Vol] 3.4 mmol/L Low 3.5-5.0 [facility] Comment on above: Performed By: #### Renetta NAM CMP, 0-3 #### [facility] ([id number]) [address] [place] [address] 16710 Protein [Mass/Vol] 7.3 g/dL Normal 6.0-8.0 [facility] Comment on above: Performed By: #### C BCA, CMP, 3040-3 #### [facility] ([id number]) [address] [place] [address] 69162 Sodium [Moles/Vol] 134 mmol/L Normal 134-146 [facility] Comment on above: Performed By: #### C BCA, CMP, 3040-3 #### [facility] ([id number]) [address] [place] [address] 03900 Urea nitrogen [Mass/Vol] 16 mg/dL Normal 5-23 [facility] Comment on above: Performed By: #### C BCA, CMP, 3040-3 #### [facility] ([id number]) [address] [place] [address] ABDOMEN AND PELVIS W CONT on 01-02-2024 CT ABDOMEN AND PELVIS W CONT CT ABDOMEN AND PELVIS W CONT Study: CT abdomen and pelvis with contrast History:Right lower quadrant abdominal pain Protocol:CT abdomen and pelvis with contrast Contrast 100 mL Omnipaque 300 COMPARISON: Findings: Lung bases:No prior normal Liver:Normal Spleen:Normal Gallbladder:Normal Bile ducts:No dilatation Pancreas:Normal Adrenals:Normal Kidneys:Normal Ureters:Normal Bladder:Normal Bowel:Stomach not well distended otherwise unremarkable. No small bowel dilatation. Reproductive organs:Masslike density in the right adnexal region could represent an enlarged right ovary. Measures approximately 4.4 x 2.7 cm. Given the patient's history of right lower quadrant pain pelvic ultrasonography is recommended. Mesentry:Normal Peritoneum:No free air or free fluid Retroperitoneum:No adenopathy Vessels:No free air or free fluid Abdominal wall:No hernia Bones:Normal IMPRESSION: Masslike density in the right adnexal region could represent an enlarged right ovary. Measures approximately 4.4 x 2.7 cm. Given the patient's history of right lower quadrant pain pelvic ultrasonography is recommended. All CT scans at this facility use dose modulation, iterative reconstruction, and/or weight based dosing when appropriate to reduce radiation dose to as low as reasonably achievable Finalized by Fito Ogden MD on 01/02/2024 11:29 PM Normal [facility] HCG ( test) Ql (U)o n 01-02-2024 Beta HCG ( test) Ql (U) Negative Normal NEG [facility] Comment on above: Performed By: #### 2 106-3 #### [facility] ([id number]) [address] [place] [address] LIPASEon 01-02-2024 Lipase [Catalytic activity/Vol] 27 U/L Normal 17-40 [facility] Comment on above: Performed By: #### C BCA, CMP, 3040-3 #### [facility] ([id number]) [address] [place] [address] 92407 URN MACROSCOPIC NURon 2023 BILIRUBIN JOSUÉ Small Abnormal [facility] Comment on above: Performed By: #### N UM #### [facility] ([id number]) [address] [place] [address]4079 BLOOD/HGB JOSUÉ Trace Abnormal NEG [facility] Comment on above: Performed By: #### N UM #### [facility] ([id number]) [address] [place] [address] [place] [address] GLUCOSE JOSUÉ Negative Normal [facility] Comment on above: Performed By: #### N UM #### [facility] ([id number]) [address] [place] [address] [place] [address] KETONES JOSUÉ Negative Normal NEG [facility] Comment on above: Performed By: #### N UM #### [facility] ([id number]) [address] [place] [address] 47708 LEUKOCYTE ESTERASE JOSUÉ Negative Normal NEG [facility] Comment on above: Performed By: #### N UM #### [facility] ([id number]) [address] [place] [address] NITRITE JOSUÉ Negative Normal NEG [facility] Comment on above: Performed By: #### N UM #### [facility] ([id number]) [address] [place] [address]474 PH JOSUÉ 5.5 Normal 5.0-8.5 [facility] Comment on above: Performed By: #### N UM #### [facility] ([id number]) [address] [place] [address]64 PROTEIN JOSUÉ Trace Abnormal NEG [facility] Comment on above: Performed By: #### N UM #### [facility] ([id number]) [address] [place] [address]236 SPECIFIC GRAVITY JOSUÉ >=1.030 Normal 1.003-1.035 [facility] Comment on above: Performed By: #### N UM #### [facility] ([id number]) [address] [place] [address] 42319 UROBILINOGEN JOSUÉ 0.2 eu/dL Normal <1.1 [facility] Comment on above: Performed By: #### N UM #### [facility] ([id number]) [address] [place] [address]10 Quick Strepon 08-03-2022 S. pyogenes Org specific cx Ql (Throat) Positive I[facility] [employer] Other Quick Strep [facility] [employer] Other Cytologyon 11-06-2019 Cytology (NOTE) INTERPRETATION Cervical material, (ThinPrep vial, Imaging-assisted review): Specimen Adequacy: Satisfactory for evaluation. -Endocervical/transfor mation zone component is absent. Descriptive Diagnosis: Negative for intraepithelial lesion or malignancy. Maintenance Shop Manager: MARGARET MCKINLEY(ASCP) Electronically Signed Out 11/09/2019 Source: 1: Cervical material, (ThinPrep vial, Imaging-assisted review) Clinical History : Z39.2 High Risk HPV DNA testing is requested if the diagnosis is ASC-US GYNECOLOGIC CYTOLOGY REPORT Patient Name: XUAN JACKSON Rec: [id number] Path Number: [id number] [employer] [facility] ANATOMIC PATHOLOGY [address] [place] [phone] Normal [facility] Comment on above: Performed By: #### H IVCMB, AHCV #### [facility] [address] [place] [address] Director Of Operations For Therapy: Dick Caro MD Basic Metabolic Panelon Anion gap [Moles/Vol] 10 mmol/L 9 - 17 mmol/L [employer] Phone: Bun/Cre Ratio [employer] Work Phone: Calcium [Mass/Vol] 8.5 mg/dL Low 8.6 - 10. 4 mg/dL [employer] Phone: Chloride [Moles/Vol] 102 mmol/L 98 - 10 7 mmol/L [employer] Phone: CO2 [Moles/Vol] 24 mmol/L 20 - 31 mmol/L [employer] Phone: Creatinine [Mass/Vol] 0.73 mg/dL 0.5 - 0.9 mg/dL [employer] Phone: GFR >60 >60 mL/min [employer] Phone: GFR Non- >60 >60 mL/min [employer] Phone: Glucose [Mass/Vol] 137 mg/dL High 70 - 99 mg/dL [employer] Phone: Interpretation and review of laboratory results Abnormal [employer] Phone: Potassium [Moles/Vol] 3.9 mmol/L 3.7 - 5.3 mmol/L [employer] Phone: Sodium [Moles/Vol] 136 mmol/L 135 - 144 mmol/L [employer] Phone: Urea nitrogen [Mass/Vol] 9 mg/dL 6 - 20 mg/dL [facility] [employer] Phone: Basic Metabolic Profon 09-23 (cont.) Normal [facility] Comment on above: Result Comment: Aver age GFR for 20-29 years old: 116 mL/min/1.73sq m Chronic Kidney Disease: <60 mL/min/1.73sq m Kidney failure: <15 mL/min/1.73sq m eGFR calculated using average adult body mass. Additional eGFR calculator available at: http://www.ReadWave/multiple_crcl_2012.htm Performed By: #### H IVCMB, AHCV #### [facility] [address] [place] [address] Director Of Operations For Therapy: Dick Caro MD Anion gap [Moles/Vol] 10 mmol/L Normal 9-17 [facility] Comment on above: Performed By: #### H IVCMB, AHCV #### [facility] [address] [place] [address] Director Of Operations For Therapy: Dick Caro MD BUN/CRE Ratio 12 Normal 9-[address] [facility] Comment on above: Performed By: #### H IVCMB, AHCV #### [facility] [address] [place] [address] Director Of Operations For Therapy: Dick Caro MD Calcium [Mass/Vol] 8.5 mg/dL Low 8.6-10.4 [facility] Comment on above: Performed By: #### H IVCMB, AHCV #### [facility] [address] [place] [address] Director Of Operations For Therapy: Dick Caro MD Chloride [Moles/Vol] 102 mmol/L Normal 98-107 [facility] Comment on above: Performed By: #### H IVCMB, AHCV #### [facility] [address] [place] [address] Director Of Operations For Therapy: Dick Caro MD CO2 [Moles/Vol] 24 mmol/L Normal 20-31 [facility] Comment on above: Performed By: #### H IVCMB, AHCV #### [facility] [address] [place] [address] Director Of Operations For Therapy: Dick Caro MD Creatinine [Mass/Vol] 0.73 mg/dL Normal 0.50-0.90 [facility] Comment on above: Performed By: #### H IVCMB, AHCV #### [facility] [address] [place] [address] Director Of Operations For Therapy: Dick Caro MD GFR, Amer >60 Normal >60 [facility] Comment on above: Performed By: #### H IVCMB, AHCV #### [facility] [address] [place] [address] Director Of Operations For Therapy: Dick Caro MD GFR,non Amer >60 Normal >60 [facility] Comment on above: Performed By: #### H IVCMB, AHCV #### [facility] [address] [place] [address] Director Of Operations For Therapy: Dick Caro MD Glucose [Mass/Vol] 137 mg/dL High 70-99 [facility] Comment on above: Performed By: #### H IVCMB, AHCV #### [facility] [address] [place] [address] Director Of Operations For Therapy: Dick Caro MD Potassium [Moles/Vol] 3.9 mmol/L Normal 3.7-5.3 [facility] Comment on above: Performed By: #### H IVCMB, AHCV #### [facility] [address] [place] [address] Director Of Operations For Therapy: Dick Caro MD Sodium [Moles/Vol] 136 mmol/L Normal 135-144 [facility] Comment on above: Performed By: #### H IVCMB, AHCV #### [facility] [address] [place] [address] [id number] Director Of Operations For Therapy: Dick Caro MD Staging: Normal [facility] Comment on above: Result Comment: Stag e 1: Some kidney damage normal GFR Stage 2: Mild kidney damage GFR 60-89 Stage 3: Moderate kidney damage GFR 30-59 Stage 4: Severe kidney damage GFR 15-29 Stage 5: Severe kidney damage GFR <15 ESRD - chronic treatment by dialysis or transplant Performed By: #### H IVCMB, AHCV #### [facility] [address] [place], [place] [phone] Director Of Operations For Therapy: Dick Caro MD Urea nitrogen [Mass/Vol] 9 mg/dL Normal 6-20 [facility] Comment on above: Performed By: #### H IVCMB, AHCV #### [facility] [address] [place], [place] [phone] Director Of Operations For Therapy: Dick Caro MD CT HEAD WO CONTRASTon 2019 CT HEAD WO CONTRAST EXAMINATION: CT OF THE HEAD WITHOUT CONTRAST 09/23/2019 11:36 am TECHNIQUE: CT of the head was performed without the administration of intravenous contrast. Dose modulation, iterative reconstruction, and/or weight based adjustment of the mA/kV was utilized to reduce the radiation dose to as low as reasonably achievable. COMPARISON: None HISTORY: ORDERING SYSTEM PROVIDED HISTORY: facial drooping TECHNOLOGIST PROVIDED HISTORY: facial drooping Is the patient ?->No FINDINGS: BRAIN/VENTRICLES: No masses nor acute intracranial hemorrhage. Intact gutierrez/white matter differentiation without findings of acute ischemia. No mass effect nor midline shift. Patent basilar cisterns and foramen magnum. No hydrocephalus. ORBITS: Visualized portions appear normal without acute abnormality. SINUSES: Aplastic right frontal sinus. Hypoplastic left frontal and right sphenoid sinuses. Visualized portions otherwise appear normally pneumatized and aerated. SOFT TISSUES/SKULL: No acute soft tissue abnormality. No acute fracture. IMPRESSION: No acute intracranial abnormality. Interpreted by: Tyler De La Garza MD Signed by: Tyler De La Garza MD 09/23/19 Final result Normal [facility] EXAMINATION: CT OF T HE HEAD WITHOUT CONTRAST 09/23/2019 11:36 am TECHNIQUE: CT of the head was performed without the administration of intravenous contrast. Dose modulation, iterative reconstruction, and/or weight based adjustment of the mA/kV was utilized to reduce the radiation dose to as low as reasonably achievable. COMPARISON: None HISTORY: ORDERING SYSTEM PROVIDED HISTORY: facial drooping TECHNOLOGIST PROVIDED HISTORY: facial drooping Is the patient ?->No FINDINGS: BRAIN/VENTRICLES: No masses nor acute intracranial hemorrhage. Intact gutierrez/white matter differentiation without findings of acute ischemia. No mass effect nor midline shift. Patent basilar cisterns and foramen magnum. No hydrocephalus. ORBITS: Visualized portions appear normal without acute abnormality. SINUSES: Aplastic right frontal sinus. Hypoplastic left frontal and right sphenoid sinuses. Visualized portions otherwise appear normally pneumatized and aerated. SOFT TISSUES/SKULL: No acute soft tissue abnormality. No acute fracture. [employer] Phone: Jesse, [facility] Incoming Radiant Results From [employer] - 09/23/2019 11:52 AM EST EXAMINATION: CT OF THE HEAD WITHOUT CONTRAST 09/23/2019 11:36 am TECHNIQUE: CT of the head was performed without the administration of intravenous contrast. Dose modulation, iterative reconstruction, and/or weight based adjustment of the mA/kV was utilized to reduce the radiation dose to as low as reasonably achievable. COMPARISON: None HISTORY: ORDERING SYSTEM PROVIDED HISTORY: facial drooping TECHNOLOGIST PROVIDED HISTORY: facial drooping Is the patient ?->No FINDINGS: BRAIN/VENTRICLES: No masses nor acute intracranial hemorrhage. Intact gutierrez/white matter differentiation without findings of acute ischemia. No mass effect nor midline shift. Patent basilar cisterns and foramen magnum. No hydrocephalus. ORBITS: Visualized portions appear normal without acute abnormality. SINUSES: Aplastic right frontal sinus. Hypoplastic left frontal and right sphenoid sinuses. Visualized portions otherwise appear normally pneumatized and aerated. SOFT TISSUES/SKULL: No acute soft tissue abnormality. No acute fracture. IMPRESSION: No acute intracranial abnormality. [employer] Phone: No acute intracrania l abnormality. [employer] Phone: Metabolic Panelon 09-23-2019 GFR/1.73 sq M predicted among non-blacks MDRD (S/P/Bld) [Vol rate/Area] [employer] Phone: Comment on above: Stage 1: Some kidney damage normal GFR Stage 2: Mild kidney damage GFR 60-89 Stage 3: Moderate kidney damage GFR 30-59 Stage 4: Severe kidney damage GFR 15-29 Stage 5: Severe kidney damage GFR <15 ESRD - chronic treatment by dialysis or transplant Average GFR for 20-2 9 years old: 116 mL/min/1.73sq m Chronic Kidney Disease: <60 mL/min/1.73sq m Kidney failure: <15 mL/min/1.73sq m eGFR calculated using average adult body mass. Additional eGFR calculator available at: http://www.ReadWave/multiple_crcl_2012.htm Surgical Pathologyon 020 Surgical Pathology Report [id number] [facility] [place] ANATOMIC PATHOLOGY [address] [place] [phone] SURGICAL PATHOLOGY CONSULTATION Patient Name: XUAN JACKSON [facility] Rec: [id number] Path Number: [id number] Collected: 09/20/2019 Received: 09/21/2019 Reported: 09/22/2019 12:23 -- Diagnosis -- PLACENTA: - PLACENTOMEGALY (872 GRAMS). - SEE MICROSCOPIC DESCRIPTION TEMPLATE. Kermit Velasquez, Electronically Signed Out sls09/22/2019 Clinical Information Operative Findings: PLACENTA Source of Specimen 1: PLACENTA Gross Description XUAN JACKSON, PLACENTA Disrupted placenta with attached membranes and umbilical cord. UMBILICAL CORD Length: 54.5 cm Diameter: 1.5 cm True knots: No Number of vessels: 3 Spiraling: Normal Insertion into surface: Paracentral MEMBRANES Color: Gutierrez-leger, focally opacified Meconium staining: No SURFACE Color: Purple-gutierrez and focally markedly disrupted Subchorionic fibrin: Patchy and marginal and involves approximately 5% of the disc MATERNAL SURFACE Cotyledons: -Fragmented/torn: (Approximately 50%) and completeness cannot be determined -Focal lesions: No Placental size: 25.0 x 18.5 x 3.5 cm Shape: Ovoid Weight: 872 grams Number of cassettes: 3cs tm Microscopic Description Umbilical cord: A few neutrophils are present focally in the umbilical vein wall. This is a relatively minimal microscopic finding and is probably subclinical. Membranes: Unremarkable Meconium staining: No Infarcts: No Intervillous thrombi: No Subchorionic fibrin: Not significantly increased Villous maturation: Appropriate Nucleated erythrocytes in villous capillaries: Not increased Other: Few microcalcifications [employer] Phone: Hemoglobinon 09-21-2019 Hemoglobin (Bld) [Mass/Vol] 8.9 g/dL Low 11.9-15.1 [facility] Comment on above: Performed By: #### C PDAU #### [facility] [address] [place] [address] Director Of Operations For Therapy: Hernan [place] MD Hemoglobin (Bld) [Mass/Vol] 8.9 g/dL Low 11.9 - 15.1 g/dL [employer] Phone: Interpretation and review of laboratory results Abnormal [employer] Phone: CBC auto differentialon Basophils (Bld) [#/Vol] 10*3/uL [employer] Phone: Basophils/100 WBC (Bld) 0 % 0 - 2 % [employer] Phone: Differential Type NOT REPORTED [employer] Phone: Eosinophils (Bld) [#/Vol] 0.16 10*3/uL [employer] Phone: Eosinophils/100 WBC (Bld) 1 % 1 - 4 % [employer] Phone: Erythrocyte distribution width (RBC) [Ratio] 12.8 % 11.8 - 14.4 % [employer] Phone: Hematocrit (Bld) [Volume fraction] 32.3 % Low 36.3 - 47.1 % [employer] Phone: Hemoglobin (Bld) [Mass/Vol] 10.3 g/dL Low 11.9 - 15.1 g/dL [employer] Phone: Immature granulocytes (Bld) [#/Vol] 1 % High 0 [employer] Phone: Immature granulocytes (Bld) [#/Vol] 0.15 10*3/uL [employer] Phone: Interpretation and review of laboratory results Abnormal [employer] Phone: Lymphocytes (Bld) [#/Vol] 1.85 10*3/uL [employer] Phone: Lymphocytes/100 WBC (Bld) 16 % Low 24 - 43 % [employer] Phone: MCH (RBC) [Entitic mass] 27.3 pg 25.2 - 33.5 pg [employer] Phone: MCHC (RBC) [Mass/Vol] 31.9 g/dL 28.4 - 34.8 g/dL [employer] Phone: MCV (RBC) [Entitic vol] 85.7 fL 82.6 - 102.9 fL [employer] Phone: Monocytes (Bld) [#/Vol] 0.77 10*3/uL [employer] Phone: Monocytes/100 WBC (Bld) 7 % 3 - 12 % [employer] Phone: Platelet mean volume (Bld) [Entitic vol] 11.0 fL 8.1 - 13.5 fL [employer] Phone: Platelets (Bld) [#/Vol] NOT REPORTED [employer] Phone: Platelets (Bld) [#/Vol] 160 10*3/uL [employer] Phone: RBC (Bld) [#/Vol] 3.77 10*6/uL Low 3.95 - 5.1 1 m/uL [employer] Phone: RBC morphology finding Nom (Bld) NOT REPORTED [employer] Phone: Segmented neutrophils/100 WBC (Bld) 75 % High 36 - 65 % [employer] Phone: Segs Absolute 8.58 High [facility] Work Phone: WBC (Bld) [#/Vol] 0.0 10*3/uL 0.0 per 10 0 WBC [facility] Work Phone: WBC (Bld) [#/Vol] 11.5 10*3/uL High [facility] Work Phone: WBC Morphology NOT REPORTED [facility] Work Phone: CBC with Diffon 09-20-2019 Abs. Basophil <0.03 Normal 0.00-0.[address] [facility] Comment on above: Performed By: #### C PDAU #### [facility] [address] [place] [address] Director Of Operations For Therapy: Hernan [place] MD Abs.Imm.Granulocyte 0.15 k/uL Normal 0.00-0.30 [facility] Comment on above: Performed By: #### C PDAU #### [facility] [address] [place], [place] [phone] Director Of Operations For Therapy: Hernan [place] MD Abs.Neutrophil (Seg) 8.58 k/uL High 1.50-8.10 [facility] Comment on above: Performed By: #### C PDAU #### [facility] [address] [place], [place] [phone] Director Of Operations For Therapy: Hernan [place]den MD Basophils/100 WBC (Bld) 0 % Normal 0-2 [facility] Comment on above: Performed By: #### C PDAU #### [facility] [address] [place], [place] [phone] Director Of Operations For Therapy: Hernan Walden MD Eosinophils (Bld) [#/Vol] 0.16 10*3/uL Normal 0.00-0.44 [facility] Comment on above: Performed By: #### C PDAU #### [facility] [address] [place], [place] [phone] Director Of Operations For Therapy: Hernan [place]den MD Eosinophils/100 WBC (Bld) 1 % Normal 1-4 [facility] Comment on above: Performed By: #### C PDAU #### [facility] [address] [place], [place] [phone] Director Of Operations For Therapy: Hernan [place]den MD Erythrocyte distribution width (RBC) [Ratio] 12.8 % Normal 11.8-14.4 [facility] Comment on above: Performed By: #### C PDAU #### [facility] [address] [place], [place] [id number] Director Of Operations For Therapy: Hernan [place]den MD Hematocrit (Bld) [Volume fraction] 32.3 % Low 36.3-47.1 [facility] Comment on above: Performed By: #### C PDAU #### [facility] [address] [place], [place] [phone] Director Of Operations For Therapy: Hernan [place]den MD Hemoglobin (Bld) [Mass/Vol] 10.3 g/dL Low 11.9-15.1 [facility] Comment on above: Performed By: #### C PDAU #### [facility] [address] [place], [place] [id number] Director Of Operations For Therapy: Hernan [place]den MD Immature granulocytes (Bld) [#/Vol] 1 % High 0 [facility] Comment on above: Performed By: #### C PDAU #### [facility] [address] [place], [place] [id number] Director Of Operations For Therapy: Hernan [place]den MD Lymphocytes (Bld) [#/Vol] 1.85 10*3/uL Normal 1.10-3.70 [facility] Comment on above: Performed By: #### C PDAU #### [facility] [address] [place], [place] [phone] Director Of Operations For Therapy: Hernan [place]den MD Lymphocytes/100 WBC (Bld) 16 % Low 24-43 [facility] Comment on above: Performed By: #### C PDAU #### [facility] [address] [place] [address] Director Of Operations For Therapy: Hernan [place]den MD MCH (RBC) [Entitic mass] 27.3 pg Normal 25.2-33.5 [facility] Comment on above: Performed By: #### C PDAU #### [facility] [address] [place] [phone] Director Of Operations For Therapy: Hernan [place]den MD MCHC (RBC) [Mass/Vol] 31.9 g/dL Normal 28.4-34.8 [facility] Comment on above: Performed By: #### C PDAU #### [facility] [address] [place] [address] Director Of Operations For Therapy: Hernan Walden MD MCV (RBC) [Entitic vol] 85.7 fL Normal 82.6-102.9 [facility] Comment on above: Performed By: #### C PDAU #### [facility] [address] [place] [address] Director Of Operations For Therapy: Hernan [place]den MD Monocytes (Bld) [#/Vol] 0.77 10*3/uL Normal 0.10-1.20 [facility] Comment on above: Performed By: #### C PDAU #### [facility] [address] [place], [place] [phone] Director Of Operations For Therapy: Hernan [place]den MD Monocytes/100 WBC (Bld) 7 % Normal 3-12 [facility] Comment on above: Performed By: #### C PDAU #### [facility] [address] [place] [address] Director Of Operations For Therapy: Hernan [place]den MD Neutrophil (Seg) 75 % High 36-65 [facility] Comment on above: Performed By: #### C PDAU #### [facility] [address] [place] [phone] Director Of Operations For Therapy: Hernan [place]den MD NRBC Automated 0.0 per 100 WBC Normal 0.0 [facility] Comment on above: Performed By: #### C PDAU #### [facility] [address] [place], [facility] Director Of Operations For Therapy: Hernan aWlden MD Platelet mean volume (Bld) [Entitic vol] 11.0 fL Normal 8.1-13.5 [facility] Comment on above: Performed By: #### C PDAU #### [facility] [address] [place], [place] [address] Director Of Operations For Therapy: Hernan Walden MD Platelets (Bld) [#/Vol] 160 10*3/uL Normal 138-453 [facility] Comment on above: Performed By: #### C PDAU #### [address] [place], [place] [address] Director Of Operations For Therapy: Hernan Walden MD RBC (Bld) [#/Vol] 3.77 10*6/uL Low 3.95-5.11 [facility] Comment on above: Performed By: #### C PDAU #### [address] [place], [facility]83 Director Of Operations For Therapy: Hernan Walden MD WBC (Bld) [#/Vol] 11.5 10*3/uL High 3.5-11.3 [facility] Comment on above: Performed By: #### C PDAU #### [facility] [address] [place], [facility] Director Of Operations For Therapy: Hernan Walden MD Auto Diff Performed NOT REPORTED Normal [facility] Comment on above: Performed By: #### C PDAU #### [facility] [address] [place] [address] Director Of Operations For Therapy: Hernan Walden MD Platelets (Bld) [#/Vol] NOT REPORTED Normal [facility] Comment on above: Performed By: #### C PDAU #### [facility] [address] [place] [address] Director Of Operations For Therapy: Hernan [place]den MD RBC morphology finding Nom (Bld) NOT REPORTED Normal [facility] Comment on above: Performed By: #### C PDAU #### [facility] [address] [place] [address] Director Of Operations For Therapy: Hernan [place] MD WBC Morphology NOT REPORTED Normal [facility] Comment on above: Performed By: #### C PDAU #### [facility] [address] [place] [address] Director Of Operations For Therapy: Hernan Walden MD DRUG SCREEN MULTI URINEon Amphetamine Screen, Ur Negative NEGATIVE [facility] Work Phone: Barbiturate Screen, Ur Negative NEGATIVE [facility] Work Phone: Benzodiazepine Screen, Urine Negative NEGATIVE [facility] Work Phone: Buprenorphine Urine Negative NEGATIVE [facility] Work Phone: Cannabinoid Scrn, Ur Negative NEGATIVE [facility] Work Phone: Cocaine Metabolite, Urine Negative NEGATIVE [facility] Work Phone: MDMA, Urine NOT REPORTED NEGATIVE [facility] Work Phone: Methadone Screen, Urine Negative NEGATIVE [facility] Work Phone: Methamphetamine, Urine Negative NEGATIVE [facility] Work Phone: Opiates, Urine Negative NEGATIVE [facility] Work Phone: Oxycodone Screen, Ur Negative NEGATIVE [facility] Work Phone: Phencyclidine, Urine Negative NEGATIVE [facility] Work Phone: Propoxyphene, Urine Negative NEGATIVE [facility] Work Phone: Test Information NOT REPORTED [facility] Work Phone: Tricyclic Antidepressants, Urine Negative NEGATIVE [facility] Work Phone: Comment on above: Drug screen results are to be used for medical purposes only. All positive results are unconfirmed. Testing for employment or legal uses should be sent to a reference laboratory for confirmation. Drug Scr, Abuse, Uron 2019 Amphetamine(s),Ur Negative Normal [facility] Comment on above: Performed By: #### C PDAU #### [facility] [address] [place] [id number] Director Of Operations For Therapy: Hernan Walden MD Barbiturate(s),Ur Negative Normal NEG [facility] Comment on above: Performed By: #### C PDAU #### [address] [place] [id number] Director Of Operations For Therapy: Hernan Walden MD Base excess Calc (Bld) [Moles/Vol] Negative Normal [facility] Comment on above: Performed By: #### C PDAU #### [facility] [address] [place] [address] [place] [id number] Director Of Operations For Therapy: Hernan Walden MD Benzodiazepine(s) Negative Normal [facility] Comment on above: Performed By: #### C PDAU #### [facility] [address] [place] [address] [place] [id number] Director Of Operations For Therapy: Hernan Walden MD Buprenorphrine, Ur Negative Normal [facility] Comment on above: Performed By: #### C PDAU #### [facility] [address] [place] [id number] Director Of Operations For Therapy: Hernan Walden MD Cannabinoid(s),Ur Negative Normal [facility] Comment on above: Performed By: #### C PDAU #### [facility] [address] [place] [address] [place] [id number] Director Of Operations For Therapy: Hernan Walden MD Methadone Ql (U) Negative Normal NEG [facility] Comment on above: Performed By: #### C PDAU #### [facility] [address] [place], [place] [phone] Director Of Operations For Therapy: Hernan Walden MD Methamphetamine, Ur Negative Normal NEG [facility] Comment on above: Performed By: #### C PDAU #### [facility] [address] [place], [place] [id number] Director Of Operations For Therapy: Hernan Walden MD Opiate(s), Ur Negative Normal NEG [facility] Comment on above: Performed By: #### C PDAU #### [facility] [address] [place] [id number] Director Of Operations For Therapy: Hernan Walden MD Oxycodone, Urine Negative Normal NEG [facility] Comment on above: Performed By: #### C PDAU #### [facility] [address] [place], [place] [phone] Director Of Operations For Therapy: Hernan Walden MD Phencyclidine, Ur Negative Normal NEG [facility] Comment on above: Performed By: #### C PDAU #### [facility] [address] [place], [place] [id number] Director Of Operations For Therapy: Hernan Walden MD Propoxyphene,Urine Negative Normal NEG [facility] Comment on above: Performed By: #### C PDAU #### [facility] [address] [place], [place] [id number] Director Of Operations For Therapy: Hernan Walden MD Tricyclic antidepressants Screen Ql (U) Negative Normal [facility] Comment on above: Result Comment: Drug screen results are to be used for medical purposes only. All positive results are unconfirmed. Testing for employment or legal uses should be sent to a reference laboratory for confirmation. Performed By: #### C PDAU #### [facility] [address] [place], [place] [id number] Director Of Operations For Therapy: Hernan Walden MD Interpretive Info NOT REPORTED [facility] Comment on above: Performed By: #### C PDAU #### [facility] [address] [place] [id number] Director Of Operations For Therapy: Hernan Walden MD MDMA, Urine NOT REPORTED Normal NEG [facility] Comment on above: Performed By: #### C PDAU #### [facility] [address] [place] [id number] Director Of Operations For Therapy: Hernan Walden MD OPERATIVE REPORTon 0 OPERATIVE REPORT [address] [id number] OPERATIVE REPORT PATIENT NAME: XUAN JACKSON : 1990 MED REC NO: [id number] ROOM: 0201 ACCOUNT NO: [id number] ADMIT DATE: 09/20/2019 PROVIDER: Lenore Nolasco MD DATE OF PROCEDURE: 09/20/2019 PREOPERATIVE DIAGNOSES: at term, failed induction of labor. Other factors are macrosomia suspected by ultrasound and polyhydramnios. POSTOPERATIVE DIAGNOSES: at term, failed induction of labor. Other factors are macrosomia suspected by ultrasound and polyhydramnios. SURGICAL PROCEDURES: Primary section, low transverse uterine segment. ANESTHESIA: Spinal. DATA WAREHOUSE SPECIALIST: Gabriella Pierson. ESTIMATED BLOOD LOSS: Around 600 mL. COMPLICATIONS OF THE SURGERY ITSELF: None. FINDINGS: Overdistended uterus, viable vigorous female infant, in vertex presentation with polyhydramnios, clear fluid. Also, placenta more difficult than usual to remove, but with no direct evidence of accreta. Of note that the patient is a 28-year-old white female, 4, now para 3, who had a history of a delivery at 24 weeks, a loss at 18 weeks. Prior provider felt that this was incompetent cervix, so had a cerclage last and this . She had delivered a 7-pound 4-ounce female infant previously. Of note that I did recommend the section initially, however, the patient wished to have a trial of labor and so I did on her wishes by giving her Pitocin for about 12 hours up to 24 milliunits. Her cervix did not change from 4 cm dilated and ballotable station. At this time then the patient did agree to proceed with section, which was carried out in a non-urgent fashion. DESCRIPTION OF PROCEDURE: After appropriate consent was reviewed and signed, the patient was taken to the operating room. Spinal anesthesia was administered. The patient did have pneumatic stockings placed, prepping, and Melgar catheter placement. Abdominal strap system was placed for tissue retraction and then abdomen was sterilely prepped and draped. Scalpel was used to make a transverse incision on the lower abdomen. Bovie cautery was used to divide the subcutaneous tissue. Coagulating small bleeding vessels encountered. One larger vein was encountered required a suture to be placed for venous stasis. Then, the Bovie cautery was used to divide the fascia and to mobilize the fascia away from the underlying rectus muscles both superiorly and inferiorly. Then, the rectus muscles were in the midline. Peritoneum bluntly entered and carefully extended. Uterine peritoneum was elevated and incised and the bladder flap was created mobilizing it inferiorly. Scalpel was used to make a transverse incision over the lower uterine segment. This was extended in a semilunar fashion with photographic machine operator's fingers. A copious amount of clear fluid immediately did leave the incision. head was directed out along with fundal pressure and the infant was delivered without any difficulty. Cord was allowed to pulse. Cord was clamped and cut. handed off to nursing attending delivery. Cord blood specimen was obtained and the placenta was carefully removed from the uterus. Some small amounts of the placenta needed to be manually removed, but it appeared to be intact and there was no active bleeding. (This could have been an etiology for her uterine inversion that she had last ). In any event, this was watched carefully and there was no unusual bleeding. 1 ampule of Hemabate was given due to the uterus being over distended and slow to respond to Pitocin and to uterine massage. Then, the uterus was closed with #1 chromic in a running interlocking fashion and then a second layer in a running imbricating interlocking fashion as well. The uterus was brought out of the incision during this time. The posterior cul-de-sac was cleaned of blood clots and fluid. Uterus was carefully replaced back into the abdomen. Anterior cul-de-sac and paracolic gutters were thoroughly cleaned of blood clots. No active bleeding noted. The fascia was closed with 0 PDS looped in a running non-interlocking fashion. Copious irrigation was performed to the subcutaneous layer and then this was closed with 3-0 Monocryl in interrupted fashion. Skin clips were placed upon the skin edges. All sponge, needle, and instrument counts were noted to be correct. LENORE NOLASCO MD [id number] Doc#: [id number] CC: , MARYLIN MORROW [facility] Surgical Pathologyon 020 Surgical Pathology (NOTE) [facility] [place] ANATOMIC PATHOLOGY [address] [place] [id number] SURGICAL PATHOLOGY CONSULTATION Patient Name: XUAN JACKSON [facility] Rec: [id number] Path Number: [id number] Collected: 09/20/2019 Received: 09/21/2019 Reported: 09/22/2019 12:23 -- Diagnosis -- PLACENTA: - PLACENTOMEGALY (872 GRAMS). - SEE MICROSCOPIC DESCRIPTION TEMPLATE. Kermit Velasquez, Electronically Signed Out /09/22/2019 Clinical Information Operative Findings: PLACENTA Source of Specimen 1: PLACENTA Gross Description XUAN JACKSON, PLACENTA Disrupted placenta with attached membranes and umbilical cord. UMBILICAL CORD Length: 54.5 cm Diameter: 1.5 cm True knots: No Number of vessels: 3 Spiraling: Normal Insertion into surface: Paracentral MEMBRANES Color: Gutierrez-leger, focally opacified Meconium staining: No SURFACE Color: Purple-gutierrez and focally markedly disrupted Subchorionic fibrin: Patchy and marginal and involves approximately 5% of the disc MATERNAL SURFACE Cotyledons: -Fragmented/torn: (Approximately 50%) and completeness cannot be determined -Focal lesions: No Placental size: 25.0 x 18.5 x 3.5 cm Shape: Ovoid Weight: 872 grams Number of cassettes: 3cs tm Microscopic Description Umbilical cord: A few neutrophils are present focally in the umbilical vein wall. This is a relatively minimal microscopic finding and is probably subclinical. Membranes: Unremarkable Meconium staining: No Infarcts: No Intervillous thrombi: No Subchorionic fibrin: Not significantly increased Villous maturation: Appropriate Nucleated erythrocytes in villous capillaries: Not increased Other: Few microcalcifications Normal [facility] Comment on above: Performed By: #### H IVCMB, AHCV #### [facility] [employer] [facility] [place] [address] Director Of Operations For Therapy: Dick Caro MD TYPE AND SCREENon 09-20-2019 ABO/Rh Positive [facility] Work Phone: Arm Band Number [id number] [facility] Work Phone: Expiration Date 09/23/2019,2359 [facility] [employer] Work Phone: Type + Screenon 09-20-2019 Type + Screen Sample Expiration 09/23/2019,2359 Arm Band Number [id number] ABO/Rh(D) O POSITIVE Antibody Screen NEGATIVE Normal [facility] Comment on above: Performed By: #### C PDAU #### [facility] [address] [place] [address] [place] [address] Director Of Operations For Therapy: Hernan Walden MD Cult,Urineon 09-13-2019 Cult,Urine Specimen Description .VOIDED URINE Special Requests NOT REPORTED Culture NO SIGNIFICANT GROWTH Report Status FINAL 09/13/2019 Normal [facility] Comment on above: Performed By: #### C PDAU #### [address] [place] [address] Director Of Operations For Therapy: Hernan Walden MD No Panel InformationOrdered By: Matilda Pierson on 09-12-2019 1. Single live intrauterine in cephalic presentation. Cervical length is 2.2 cm with funneling. 2. Normal biophysical profile. [facility] [place] Phone: EXAMINATION: TRANSABDOMINAL SECOND/THIRD TRIMESTER OBSTETRIC PELVIC ULTRASOUND WITH COLOR DOPPLER FLOW; BIOPHYSICAL PROFILE WITH NON-STRESS TEST 09/12/2019 8:12 am TECHNIQUE: TRANSABDOMINAL PELVIC ULTRASOUND WITH COLOR DOPPLER FLOW; ULTRASOUND BIOPHYSICAL PROFILE WITH NON-STRESS TEST HISTORY: ORDERING SYSTEM PROVIDED HISTORY: complete TECHNOLOGIST PROVIDED HISTORY: complete FINDINGS: GENERAL OBSERVATIONS: : Single CARDIAC ACTIVITY: Yes HEART RATE: 133 beats per minute BODY & LIMB MOVEMENTS: Yes POSITION: Cephalic PLACENTA LOCATION: Fundal. Question accessory lobe anteriorly SENTHIL: 12.5 ANATOMY: Detailed anatomy was not performed. No sonographic abnormality identified in the limited images. Biophysical profile of 8 out of 8. ESTIMATED AGE: BY LMP: 37 weeks 1 day CURRENT US: 38 weeks 3 days ESTIMATED WEIGHT: 3905 grams, greater than 90%tile by LMP, %tile by AUA MEASUREMENTS: BPD: 9.2 cm, 72%tile HEAD CIRCUMFERENCE: 32.6 cm, 37%tile ABD. CIRCUMFERENCE: 34.8 cm, greater than 97%tile FEMUR LENGTH: 6.7 cm, 42%tile CERVICAL LENGTH: 2.2 cm with funneling [facility] Work Phone: US BIOPHYS PROFILE W N ON STRESSon 09-12-2019 US BIOPHYS PROFILE W NON STRESS EXAMINATION: TRANSABDOMINAL SECOND/THIRD TRIMESTER OBSTETRIC PELVIC ULTRASOUND WITH COLOR DOPPLER FLOW; BIOPHYSICAL PROFILE WITH NON-STRESS TEST 09/12/2019 8:12 am TECHNIQUE: TRANSABDOMINAL PELVIC ULTRASOUND WITH COLOR DOPPLER FLOW; ULTRASOUND BIOPHYSICAL PROFILE WITH NON-STRESS TEST HISTORY: ORDERING SYSTEM PROVIDED HISTORY: complete TECHNOLOGIST PROVIDED HISTORY: complete FINDINGS: GENERAL OBSERVATIONS: : Single CARDIAC ACTIVITY: Yes HEART RATE: 133 beats per minute BODY AND LIMB MOVEMENTS: Yes POSITION: Cephalic PLACENTA LOCATION: Fundal. Question accessory lobe anteriorly SENTHIL: 12.5 ANATOMY: Detailed anatomy was not performed. No sonographic abnormality identified in the limited images. Biophysical profile of 8 out of 8. ESTIMATED AGE: BY LMP: 37 weeks 1 day CURRENT US: 38 weeks 3 days ESTIMATED WEIGHT: 3905 grams, greater than 90%tile by LMP, %tile by AUA MEASUREMENTS: BPD: 9.2 cm, 72%tile HEAD CIRCUMFERENCE: 32.6 cm, 37%tile ABD. CIRCUMFERENCE: 34.8 cm, greater than 97%tile FEMUR LENGTH: 6.7 cm, 42%tile CERVICAL LENGTH: 2.2 cm with funneling IMPRESSION: 1. Single live intrauterine in cephalic presentation. Cervical length is 2.2 cm with funneling. 2. Normal biophysical profile. Interpreted by: Corey Siddiqi MD Signed by: Corey Siddiqi MD 09/12/19 Final result Normal [facility] US BIOPHYS PROFILE W N ON STRESSOrdered By: Matilda Pierson on 09-12-2019 Jesse, Mhpn Incoming Radiant Results From Ortho-tage/Pacs - 09/12/2019 10:16 AM EST EXAMINATION: TRANSABDOMINAL SECOND/THIRD TRIMESTER OBSTETRIC PELVIC ULTRASOUND WITH COLOR DOPPLER FLOW; BIOPHYSICAL PROFILE WITH NON-STRESS TEST 09/12/2019 8:12 am TECHNIQUE: TRANSABDOMINAL PELVIC ULTRASOUND WITH COLOR DOPPLER FLOW; ULTRASOUND BIOPHYSICAL PROFILE WITH NON-STRESS TEST HISTORY: ORDERING SYSTEM PROVIDED HISTORY: complete TECHNOLOGIST PROVIDED HISTORY: complete FINDINGS: GENERAL OBSERVATIONS: : Single CARDIAC ACTIVITY: Yes HEART RATE: 133 beats per minute BODY & LIMB MOVEMENTS: Yes POSITION: Cephalic PLACENTA LOCATION: Fundal. Question accessory lobe anteriorly SENTHIL: 12.5 ANATOMY: Detailed anatomy was not performed. No sonographic abnormality identified in the limited images. Biophysical profile of 8 out of 8. ESTIMATED AGE: BY LMP: 37 weeks 1 day CURRENT US: 38 weeks 3 days ESTIMATED WEIGHT: 3905 grams, greater than 90%tile by LMP, %tile by AUA MEASUREMENTS: BPD: 9.2 cm, 72%tile HEAD CIRCUMFERENCE: 32.6 cm, 37%tile ABD. CIRCUMFERENCE: 34.8 cm, greater than 97%tile FEMUR LENGTH: 6.7 cm, 42%tile CERVICAL LENGTH: 2.2 cm with funneling IMPRESSION: 1. Single live intrauterine in cephalic presentation. Cervical length is 2.2 cm with funneling. 2. Normal biophysical profile. [facility] [employer] Work Phone: US OB 14 PLUS WEEKS SINGLE O R FIRST GESTATIONon 09-12-2019 US OB 14 PLUS WEEKS SINGLE OR FIRST GESTATION EXAMINATION: TRANSABDOMINAL SECOND/THIRD TRIMESTER OBSTETRIC PELVIC ULTRASOUND WITH COLOR DOPPLER FLOW; BIOPHYSICAL PROFILE WITH NON-STRESS TEST 09/12/2019 8:12 am TECHNIQUE: TRANSABDOMINAL PELVIC ULTRASOUND WITH COLOR DOPPLER FLOW; ULTRASOUND BIOPHYSICAL PROFILE WITH NON-STRESS TEST HISTORY: ORDERING SYSTEM PROVIDED HISTORY: complete TECHNOLOGIST PROVIDED HISTORY: complete FINDINGS: GENERAL OBSERVATIONS: : Single CARDIAC ACTIVITY: Yes HEART RATE: 133 beats per minute BODY AND LIMB MOVEMENTS: Yes POSITION: Cephalic PLACENTA LOCATION: Fundal. Question accessory lobe anteriorly SENTHIL: 12.5 ANATOMY: Detailed anatomy was not performed. No sonographic abnormality identified in the limited images. Biophysical profile of 8 out of 8. ESTIMATED AGE: BY LMP: 37 weeks 1 day CURRENT US: 38 weeks 3 days ESTIMATED WEIGHT: 3905 grams, greater than 90%tile by LMP, %tile by AUA MEASUREMENTS: BPD: 9.2 cm, 72%tile HEAD CIRCUMFERENCE: 32.6 cm, 37%tile ABD. CIRCUMFERENCE: 34.8 cm, greater than 97%tile FEMUR LENGTH: 6.7 cm, 42%tile CERVICAL LENGTH: 2.2 cm with funneling IMPRESSION: 1. Single live intrauterine in cephalic presentation. Cervical length is 2.2 cm with funneling. 2. Normal biophysical profile. Interpreted by: Corey Siddiqi MD Signed by: Corey Siddiqi MD 09/12/19 Final result Normal [facility] US OB 14 PLUS WEEKS SINGLE O R FIRST GESTATIONOrdered By: Matilda Pierson on 09-12-2019 Jesse, Mhpn Incoming Radiant Results From [employer] - 09/12/2019 10:15 AM EST EXAMINATION: TRANSABDOMINAL SECOND/THIRD TRIMESTER OBSTETRIC PELVIC ULTRASOUND WITH COLOR DOPPLER FLOW; BIOPHYSICAL PROFILE WITH NON-STRESS TEST 09/12/2019 8:12 am TECHNIQUE: TRANSABDOMINAL PELVIC ULTRASOUND WITH COLOR DOPPLER FLOW; ULTRASOUND BIOPHYSICAL PROFILE WITH NON-STRESS TEST HISTORY: ORDERING SYSTEM PROVIDED HISTORY: complete TECHNOLOGIST PROVIDED HISTORY: complete FINDINGS: GENERAL OBSERVATIONS: : Single CARDIAC ACTIVITY: Yes HEART RATE: 133 beats per minute BODY & LIMB MOVEMENTS: Yes POSITION: Cephalic PLACENTA LOCATION: Fundal. Question accessory lobe anteriorly SENTHIL: 12.5 ANATOMY: Detailed anatomy was not performed. No sonographic abnormality identified in the limited images. Biophysical profile of 8 out of 8. ESTIMATED AGE: BY LMP: 37 weeks 1 day CURRENT US: 38 weeks 3 days ESTIMATED WEIGHT: 3905 grams, greater than 90%tile by LMP, %tile by AUA MEASUREMENTS: BPD: 9.2 cm, 72%tile HEAD CIRCUMFERENCE: 32.6 cm, 37%tile ABD. CIRCUMFERENCE: 34.8 cm, greater than 97%tile FEMUR LENGTH: 6.7 cm, 42%tile CERVICAL LENGTH: 2.2 cm with funneling IMPRESSION: 1. Single live intrauterine in cephalic presentation. Cervical length is 2.2 cm with funneling. 2. Normal biophysical profile. [facility] Work Phone: Microscopic UrinalysisOrdere d By: Anjali Rain on 09-11-2019 - [facility] Work Phone: Amorphous, UA NOT REPORTED None [facility] Work Phone: Bacteria, UA 1+ Abnormal None [facility] Work Phone: Casts UA NOT REPORTED /LPF [facility] Work Phone: Crystals UA NOT REPORTED None /HPF [employer] [facility] Work Phone: Epithelial Cells UA 5 TO 10 [facility] Work Phone: Interpretation and review of laboratory results Abnormal [facility] Work Phone: Mucus, UA NOT REPORTED None [facility] Work Phone: Other Observations UA NOT REPORTED NOT REQ. M [facility] [employer] Work Phone: RBC, UA 5 TO 10 [facility] Work Phone: Renal Epithelial, Urine NOT REPORTED 0 /HPF [facility] Work Phone: Trichomonas, UA NOT REPORTED None [employer] Work Phone: WBC, UA 5 TO 10 [facility] Work Phone: Yeast, UA NOT REPORTED None [facility] Work Phone: UrinalysisOrdered By: Anjali Rain on 09-11-2019 Bilirubin Urine Negative NEGATIVE [facility] Work Phone: Color, UA YELLOW YELLOW [facility] Work Phone: Glucose, Ur Negative NEGATIVE [facility] Work Phone: Interpretation and review of laboratory results Abnormal [facility] Work Phone: Ketones Ql (U) Negative NEGATIVE [employer] [facility] Work Phone: Leukocyte esterase Test strip Ql (U) SMALL Abnormal NEGATIVE [facility] Work Phone: Nitrite, Urine Negative NEGATIVE [facility] Work Phone: pH, UA 6.5 [facility] Work Phone: Protein, UA Negative NEGATIVE [facility] Work Phone: Specific [place], UA 1.015 [facility] Work Phone: Turbidity UA CLOUDY Abnormal CLEAR [facility] Work Phone: Urinalysis Comments NOT REPORTED [facility] Work Phone: Urine Hgb TRACE Abnormal NEGATIVE [facility] Phone: Urobilinogen, Urine Normal Normal [facility] Work Phone: Urinalysis, Routineon 2019 Acetoacetic Acid,Ur Negative Normal NEG [facility] Comment on above: Performed By: #### C PDAU #### [facility] [address] [place] [address] [place] [place], [place] [id number] Director Of Operations For Therapy: Hernan Walden MD Bilirubin, SemiQt,Ur Negative Normal [facility] Comment on above: Performed By: #### C PDAU #### [facility] [address] [place] [address] Dr. [place], [place] [phone] Director Of Operations For Therapy: Hernan Walden MD Color (U) YELLOW Normal YEL [facility] Comment on above: Performed By: #### C PDAU #### [facility] [address] [place], [place] [phone] Director Of Operations For Therapy: Hernan Walden MD Glucose Ql (U) Negative Normal NEG [facility] Comment on above: Performed By: #### C PDAU #### [facility] [address] [place] [address] [place] [id number] Director Of Operations For Therapy: Hernan Walden MD Hemoglobin, Ur TRACE Abnormal NEG [facility] Comment on above: Performed By: #### C PDAU #### [facility] [address] [place], [place] [phone] Director Of Operations For Therapy: Hernan Walden MD Leukocyte esterase Test strip Ql (U) SMALL Abnormal NEG [facility] Comment on above: Performed By: #### C PDAU #### [facility] [address] [place], [place] [phone] Director Of Operations For Therapy: Hernan Walden MD Nitrite,Ur Negative Normal NEG [facility] Comment on above: Performed By: #### C PDAU #### [facility] [address] [place], [place] [id number] Director Of Operations For Therapy: Hernan Walden MD pH (U) 6.5 [pH] Normal 5.0-9.0 [facility] Comment on above: Performed By: #### C PDAU #### [facility] [address] [place], [place] [phone] Director Of Operations For Therapy: Hernan Walden MD Protein Ql (U) Negative Normal NEG [facility] Comment on above: Performed By: #### C PDAU #### [facility] [address] [address] Director Of Operations For Therapy: Hernan Walden MD Specific gravity (U) [Rel density] 1.015 Normal 1.010-1.020 [facility] Comment on above: Performed By: #### C PDAU #### [facility] [address] [place], [place] [phone] Director Of Operations For Therapy: Hernan Walden MD Turbidity CLOUDY Abnormal CLEAR [facility] Comment on above: Performed By: #### C PDAU #### [facility] [address] [place] [address] Director Of Operations For Therapy: Hernan Walden MD Urobilinogen,Ur Normal Normal NORM [facility] Comment on above: Performed By: #### C PDAU #### [facility] [address] [place], [place] [phone] Director Of Operations For Therapy: Hernan Walden MD Comment NOT REPORTED Normal [facility] Comment on above: Performed By: #### C PDAU #### [facility] [address] [address] Director Of Operations For Therapy: Hernan Walden MD Urinalysis,Microon 0 ----- Normal [facility] Comment on above: Performed By: #### C PDAU #### [facility] [address] [place] [address] Director Of Operations For Therapy: Hernan Wadlen MD Bacteria LM.HPF (Urine sed) [#/Area] 1+ Abnormal [facility] Comment on above: Performed By: #### C PDAU #### [address] [place] [id number] Director Of Operations For Therapy: Hernna Walden MD Epithelial cells LM.HPF (Urine sed) [#/Area] 5 TO 10 Normal 0-25 [facility] Comment on above: Performed By: #### C PDAU #### [address] [place] [id number] Director Of Operations For Therapy: Hernan Walden MD RBC (U) [#/Vol] 5 TO 10 Normal 0-2 [facility] Comment on above: Performed By: #### C PDAU #### [facility] [address] [place] [id number] Director Of Operations For Therapy: Hernan Walden MD WBC (U) [#/Vol] 5 TO 10 Normal 0-5 [facility] Comment on above: Performed By: #### C PDAU #### [address] [place] [address] Director Of Operations For Therapy: Hernan Walden MD Amorphous sediment LM Ql (Urine sed) NOT REPORTED Normal [facility] Comment on above: Performed By: #### C PDAU #### [facility] [address] [place] [phone] Director Of Operations For Therapy: Hernan Walden MD Casts LM.LPF (Urine sed) [#/Area] NOT REPORTED Normal [facility] Comment on above: Performed By: #### C PDAU #### [facility] [address] [place] [address] Director Of Operations For Therapy: Hernan Walden MD Crystals LM Nom (Urine sed) NOT REPORTED Normal NONE [facility] Comment on above: Performed By: #### C PDAU #### [facility] [address] [place] [address] Director Of Operations For Therapy: Hernan Walden MD Epithelial, Renal NOT REPORTED Normal 0 [facility] Comment on above: Performed By: #### C PDAU #### [facility] [address] [place] [address] Director Of Operations For Therapy: Hernan Walden MD Mucus Strands NOT REPORTED Normal NONE [facility] Comment on above: Performed By: #### C PDAU #### [facility] [address] [place] [address] Director Of Operations For Therapy: Hernan Walden MD Other Observations NOT REPORTED Normal NREQ [facility] Comment on above: Performed By: #### C PDAU #### [facility] [address] [place] [address] Director Of Operations For Therapy: Hernan Walden MD Trichomonas NOT REPORTED Normal NONE [facility] Comment on above: Performed By: #### C PDAU #### [facility] [address] [place] [address] Director Of Operations For Therapy: Hernan Walden MD Yeast LM Ql (Urine sed) NOT REPORTED Normal [facility] Comment on above: Performed By: #### C PDAU #### [facility] [address] [place], [place] [phone] Director Of Operations For Therapy: Hernan Walden MD OPERATIVE REPORTon 0 OPERATIVE REPORT [address] [address] OPERATIVE REPORT PATIENT NAME: XUAN JACKSON : 1990 MED REC NO: [id number] ROOM: 0208 ACCOUNT NO: [id number] ADMIT DATE: 09/08/2019 PROVIDER: Lenore Nolasco MD DATE OF PROCEDURE: 09/08/2019 PREOPERATIVE DIAGNOSIS: History of incompetent cervix with cerclage in place. The patient is 37 weeks 2 days. SURGICAL PROCEDURE: Removal of Kenyon cerclage. Of note, the patient is a 28-year-old white female 4, para 2, term 1, 1, spontaneous 1, living 2, who had history of spontaneous at 18 weeks with rupture of membranes and a delivery at 24 weeks. With this indication, the patient did have a cerclage placed early in the second trimester and was placed on progesterone. She was not having any regular contractions and so it was decided to remove the cervical cerclage today. Of note that the entire knot was removed, but there is still suture remaining in the cervix, but the cervix readily opened with cerclage removal. She went from dimple before the cerclage was removed to 3 cm on the external portion of the cervix and at the internal os. The station is about -3. Infant is vertex. Minimal amount of bleeding noted during this procedure. No anesthesia was given during this procedure. The patient will be observed for approximately an hour and if no contractions or significant cervical change will be discharged to home. LENORE NOLASCO MD /[id number] Doc#: [id number] CC: [facility] Rule Out Grp.B Strepon 09-04 Rule Out Grp.B Strep Specimen Descriptio n .VAGINA Special Requests NOT REPORTED Culture NEGATIVE FOR GROUP B STREPTOCOCCI Report Status FINAL 09/04/2019 [facility] Comment on above: Performed By: #### R OGBS #### [facility] [employer] [address] [place] [address] Director Of Operations For Therapy: Dick Caro MD [facility] [address] [place] [address] [place] [address] Director Of Operations For Therapy: Hernan Walden MD OPERATIVE REPORTon 9 OPERATIVE REPORT [address] [address] OPERATIVE REPORT PATIENT NAME: XUAN JACKSON : 1990 MED REC NO: [id number] ROOM: 0203 ACCOUNT NO: [id number] ADMIT DATE: 04/05/2019 PROVIDER: Lenore Nolasco DATE OF PROCEDURE: 04/05/2019 PREOPERATIVE DIAGNOSES: History of cervical incompetence, prior cerclage placement, at 15 weeks. POSTOPERATIVE DIAGNOSES: History of cervical incompetence, prior cerclage placement, at 15 weeks. SURGICAL PROCEDURE: Kenyon cerclage. ANESTHESIA: Spinal. ESTIMATED BLOOD LOSS: Minimal. COMPLICATIONS OF THE PROCEDURE: None. FINDINGS: A patulous cervix consistent with history of a prior cerclage. DESCRIPTION OF PROCEDURE: The patient was taken to the operating room. Spinal anesthesia was administered. Prepping was thoroughly performed. Perineum and vagina and bladder drained and an appropriate draping undertaken. With the aid of retractors, the cervix was well visualized, gently grasped with Tristanian forceps for manipulation and Prolene suture was placed at the 12 o'clock to the 3 o'clock area as far back on the cervix was permissible, then the 3 o'clock to the 6 o'clock area, the 6 o'clock to the 9 o'clock area, then the 9 o'clock to the 12 o'clock area. None of these sutures were interlocked. Numerous knots were then tied at this 12 o'clock area tying it tightly and getting a good compression of the cervix. No problems or complications noted and the patient taken to the recovery room in good condition, where she will be observed in labor and delivery. LENORE NOLASCO [id number] Doc#: [id number] CC: Normal [facility] Cytologyon 03-20-2019 Cytology (NOTE) [id number] [facility] [employer] [facility] ANATOMIC PATHOLOGY [address] [place] [id number] GYNECOLOGIC CYTOLOGY REPORT Patient Name: XUAN JACKSON MR#: [id number] Specimen #[id number] Source: 1: Cervical material, (ThinPrep vial, Imaging-assisted review) Clinical History : second trimester High Risk HPV DNA testing is requested if the diagnosis is ASC-US LMP: 12/21/18 INTERPRETATION Cervical material, (ThinPrep vial, Imaging-assisted review): Specimen Adequacy: Satisfactory for evaluation. - Endocervical/transform ation zone component present. - Scant cellularity, predominantly inflammatory exudate. Descriptive Diagnosis: Negative for intraepithelial lesion or malignancy. Reactive cellular changes associated with inflammation (encompasses typical repair). Maintenance Shop Manager: JANAY Caro M.D. Electronically Signed Out [facility]/03/23/2019 [facility] Comment on above: Performed By: #### P PPVP #### [facility] [address] [place] [address] Director Of Operations For Therapy: Dick Caro MD Chlamydia/GC DNA, Uron 02-09 Chlamydia Probe, Ur Negative Normal NEG [facility] Comment on above: Result Comment: CHLA MYDIA TRACHOMATIS DNA not detected by nucleic acid amplification. This test is intended for medical purposes only and is not valid for the evaluation of suspected sexual abuse or for other forensic purposes. In certain contexts, culture may be required to meet applicable laws and regulations for diagnosis of C. trachomatis and N. gonorrhoeae infections. Per 2014 CDC recommendations, this test does not include confirmation of positive results by an alternative nucleic acid target. Performed By: #### U CGP #### [facility] [address] [place] [address] Director Of Operations For Therapy: Dick Caro MD Gonorrhea Probe, Ur Negative Normal NEG [facility] Comment on above: Result Comment: NEIS SERIA GONORRHOEAE DNA not detected by nucleic acid amplification. This test is intended for medical purposes only and is not valid for the evaluation of suspected sexual abuse or for other forensic purposes. In certain contexts, culture may be required to meet applicable laws and regulations for diagnosis of C. trachomatis and N. gonorrhoeae infections. Per 2014 CDC recommendations, this test does not include confirmation of positive results by an alternative nucleic acid target. Performed By: #### U CGP #### [address] [address] Director Of Operations For Therapy: Dick Caro MD Cult,Urineon 02-09-2019 Cult,Urine Specimen Description .URINE Special Requests .CLEAN CATCH URINE Culture NO SIGNIFICANT GROWTH Report Status FINAL 02/08/2019 Normal [facility] Comment on above: Performed By: #### U RC #### [address] [address] Director Of Operations For Therapy: Dick Caro MD [facility] [address] [place] [address] [place] [address] Director Of Operations For Therapy: Hernan Walden MD HIV Ag/Abon 02-08-2019 HIV Ag/Ab NONREACTIVE Normal [facility] Comment on above: Result Comment: No l aboratory evidence of HIV infection. If acute HIV infection is suspected, consider testing for HIV-1 RNA. Performed By: #### H IVCMB, AHCV #### [address] [address] Director Of Operations For Therapy: Dick Caro MD Hep C Abon 02-08-2019 Hep C Ab NONREACTIVE Normal [facility] Comment on above: Result Comment: The hepatitis C procedure used in our laboratory is a Chemiluminescent test specific for three recombinant HCV antigens. A negative anti-HCV result indicates that the antibodies to hepatitis C virus are not present at this time. Individuals with reactive anti-HCV should be considered infected and infectious until proven otherwise. Confirmation of all equivocal or reactive results is recommended by ordering HCV RNA by PCR. Performed By: #### H IVCMB, AHCV #### [address] [address] Director Of Operations For Therapy: Dick Caro MD Profileon 9 Hep B Surf Ag NONREACTIVE Normal [facility] Comment on above: Performed By: #### P RENAT #### [address] [address] Director Of Operations For Therapy: Dick Caro MD [facility] [address] [place] [address] [place] [phone] Director Of Operations For Therapy: Hernan Walden MD Rubella Ab, IgG 264.6 IU/mL Normal [facility] Comment on above: Result Comment: REFERENCE RANGE: <5.0 NON-REACTIVE (non-immune) 5.0 TO 9.9 EQUIVOCAL >=10.0 REACTIVE (immune) Performed By: #### P RENAT #### [address] [address] Director Of Operations For Therapy: Dick Caro MD [facility] [address] [place] [address] [place] [address] Director Of Operations For Therapy: Hernan Walden MD T.pallidum Ab Screen NONREACTIVE Normal [facility] Comment on above: Result Comment: T. pallidum antibodies are not detected. There is no serological evidence of infection with T. pallidum (early primary syphilis cannot be excluded). Retest in 2-4 weeks if syphilis is clinically suspect. Performed By: #### P RENAT #### [address] [address] Director Of Operations For Therapy: Dick Caro MD [address] [place] [address] Director Of Operations For Therapy: Hernan Walden MD Profileon 9 Abs. Basophil 0.03 k/uL Normal 0.00-0.[address] [facility] Comment on above: Performed By: #### P RENAT #### [address] [address] Director Of Operations For Therapy: Dick Caro MD [address] [place] [address] Director Of Operations For Therapy: Hernan Walden MD Abs.Imm.Granulocyte 0.04 k/uL Normal 0.00-0.30 [facility] Comment on above: Performed By: #### P RENAT #### [address] [address] Director Of Operations For Therapy: Dick Caro MD [address] [place] [phone] Director Of Operations For Therapy: Hernan Walden MD Abs.Neutrophil (Seg) 8.93 k/uL High 1.50-8.10 [facility] Comment on above: Performed By: #### P RENAT #### [address] [address] Director Of Operations For Therapy: Dick Caro MD [address] [place] [phone] Director Of Operations For Therapy: Hernan Walden MD Basophils/100 WBC (Bld) 0 % Normal 0-2 [facility] Comment on above: Performed By: #### P RENAT #### [address] [address] Director Of Operations For Therapy: Dick Caro MD [address] [place] [address] Director Of Operations For Therapy: Hernan Walden MD Eosinophils (Bld) [#/Vol] 0.27 10*3/uL Normal 0.00-0.44 [facility] Comment on above: Performed By: #### P RENAT #### [address] [address] Director Of Operations For Therapy: Dick Caro MD [address] [place] [address] Director Of Operations For Therapy: Hernan Walden MD Eosinophils/100 WBC (Bld) 2 % Normal 1-4 [facility] Comment on above: Performed By: #### P RENAT #### [address] [address] Director Of Operations For Therapy: Dick Caro MD [address] [place] [phone] Director Of Operations For Therapy: Hernan Walden MD Erythrocyte distribution width (RBC) [Ratio] 12.8 % Normal 11.8-14.4 [facility] Comment on above: Performed By: #### P RENAT #### [address] [address] Director Of Operations For Therapy: Dick Caro MD [address] [place] [phone] Director Of Operations For Therapy: Hernan Walden MD Hematocrit (Bld) [Volume fraction] 37.2 % Normal 36.3-47.1 [facility] Comment on above: Performed By: #### P RENAT #### [address] [address] Director Of Operations For Therapy: Dick Caro MD [address] [place] [phone] Director Of Operations For Therapy: Hernan Walden MD Hemoglobin (Bld) [Mass/Vol] 11.9 g/dL Normal 11.9-15.1 [facility] Comment on above: Performed By: #### P RENAT #### [address] [address] Director Of Operations For Therapy: Dick Caro MD [address] [place] [phone] Director Of Operations For Therapy: Hernan Walden MD Immature granulocytes (Bld) [#/Vol] 0 % Normal 0 [facility] Comment on above: Performed By: #### P RENAT #### [address] [address] Director Of Operations For Therapy: Dick Caro MD [address] [place] [address] Director Of Operations For Therapy: Hernan Walden MD Lymphocytes (Bld) [#/Vol] 2.13 10*3/uL Normal 1.10-3.70 [facility] Comment on above: Performed By: #### P RENAT #### [address] [address] Director Of Operations For Therapy: Dick Caro MD [address] [place] [phone] Director Of Operations For Therapy: Hernan Walden MD Lymphocytes/100 WBC (Bld) 17 % Low 24-43 [facility] Comment on above: Performed By: #### P RENAT #### [address] [id number] Director Of Operations For Therapy: Dick Caro MD [address] [place] [phone] Director Of Operations For Therapy: Hernan Walden MD MCH (RBC) [Entitic mass] 27.8 pg Normal 25.2-33.5 [facility] Comment on above: Performed By: #### P RENAT #### [address] [id number] Director Of Operations For Therapy: Dick Caro MD [address] [place] 418[address]83 Director Of Operations For Therapy: Hernan Walden MD MCHC (RBC) [Mass/Vol] 32.0 g/dL Normal 28.4-34.8 [facility] Comment on above: Performed By: #### P RENAT #### [address] [address] Director Of Operations For Therapy: Dick Caro MD [address] [place] [phone] Director Of Operations For Therapy: Hernan Walden MD MCV (RBC) [Entitic vol] 86.9 fL Normal 82.6-102.9 [facility] Comment on above: Performed By: #### P RENAT #### [address] [address] Director Of Operations For Therapy: Dick Caro MD [address] [place] [phone] Director Of Operations For Therapy: Hernan Walden MD Monocytes (Bld) [#/Vol] 0.82 10*3/uL Normal 0.10-1.20 [facility] Comment on above: Performed By: #### P RENAT #### [place] [address] [place] [address] Director Of Operations For Therapy: Dick Caro MD [facility] [address] [place] [address] Dr[place] [address]83 Director Of Operations For Therapy: Hernan Walden MD Monocytes/100 WBC (Bld) 7 % Normal 3-12 [facility] Comment on above: Performed By: #### P RENAT #### [address] [address] Director Of Operations For Therapy: Dick Caro MD [facility] [address] [place] [address] Dr[place] [phone] Director Of Operations For Therapy: Hernan Walden MD Neutrophil (Seg) 74 % High 36-65 [facility] Comment on above: Performed By: #### P RENAT #### [address] [address] Director Of Operations For Therapy: Dick Caro MD [facility] [address] [place] [address] [place] [phone] Director Of Operations For Therapy: Hernan Walden MD NRBC Automated 0.0 per 100 WBC Normal 0.0 [facility] Comment on above: Performed By: #### P RENAT #### [address] [address] Director Of Operations For Therapy: Dick Caro MD [facility] [address] [place] [address] [place] [address] Director Of Operations For Therapy: Hernan Walden MD Platelet mean volume (Bld) [Entitic vol] 10.2 fL Normal 8.1-13.5 [facility] Comment on above: Performed By: #### P RENAT #### [address] [address] Director Of Operations For Therapy: Dick Caro MD [facility] [address] [place] [address] [place] [phone] Director Of Operations For Therapy: Hernan Walden MD Platelets (Bld) [#/Vol] 287 10*3/uL Normal 138-453 [facility] Comment on above: Performed By: #### P RENAT #### [place] [id number] [place] [address] Director Of Operations For Therapy: Dick Caro MD [facility] [address] [place] [address] [place] [phone] Director Of Operations For Therapy: Hernan Walden MD RBC (Bld) [#/Vol] 4.28 10*6/uL Normal 3.95-5.11 [facility] Comment on above: Performed By: #### P RENAT #### [address] [address] Director Of Operations For Therapy: Dick Caro MD [address] [place] [address] Director Of Operations For Therapy: Hernan Walden MD WBC (Bld) [#/Vol] 12.2 10*3/uL High 3.5-11.3 [facility] Comment on above: Performed By: #### P RENAT #### [address] [address] Director Of Operations For Therapy: Dick Caro MD [address] [place] [address] Director Of Operations For Therapy: Hernan Walden MD Auto Diff Performed NOT REPORTED Normal [facility] Comment on above: Performed By: #### P RENAT #### [address] [address] Director Of Operations For Therapy: Dick Caro MD [address] [place] [address] Director Of Operations For Therapy: Hernan Walden MD Platelets (Bld) [#/Vol] NOT REPORTED Normal [facility] Comment on above: Performed By: #### P RENAT #### [address] [address] Director Of Operations For Therapy: Dick Caro MD [facility] [address] [place] [address] [place], [place] [phone] Director Of Operations For Therapy: Hernan Walden MD RBC morphology finding Nom (Bld) NOT REPORTED Normal [facility] Comment on above: Performed By: #### P RENAT #### [facility] [address] [place], [place] [id number] Director Of Operations For Therapy: Dick Caro MD [address] [place], [place] [phone] Director Of Operations For Therapy: Hernan Walden MD WBC Morphology NOT REPORTED Normal [facility] Comment on above: Performed By: #### P RENAT #### [facility] [address] [place] [address] Director Of Operations For Therapy: Dick Caro MD [address] [place] [phone] Director Of Operations For Therapy: Hernan Walden MD Type + Scrnon 02-07 Type + Scrn Negative [facility] Comment on above: Performed By: #### P RTYS #### [address] [place], [place] 5019583 Director Of Operations For Therapy: Hernan Walden MD Toxicology Scree, Urineon Amphetamine(s),Ur Negative Normal [facility] Comment on above: Performed By: #### C PDAU #### [address] [place], [place] [phone] Director Of Operations For Therapy: Hernan Walden MD Barbiturate(s),Ur Negative Normal [facility] Comment on above: Performed By: #### C PDAU #### [address] [place], [place] [phone] Director Of Operations For Therapy: Hernan Walden MD Benzodiazepine(s) Negative Normal [facility] Comment on above: Performed By: #### C PDAU #### [address] [place], [place] [phone] Director Of Operations For Therapy: Hernan Walden MD Buprenorphrine, Ur Negative Normal NEG [facility] Comment on above: Performed By: #### C PDAU #### [facility] [address] [place], [place] [phone] Director Of Operations For Therapy: Hernan Walden MD Cannabinoid(s),Ur Negative Normal [facility] Comment on above: Performed By: #### C PDAU #### [facility] [address] [place] [address] Director Of Operations For Therapy: Hernan Walden MD Cocaine Metabolite Negative Normal [facility] Comment on above: Performed By: #### C PDAU #### [facility] [address] [place] [address] Director Of Operations For Therapy: Hernan Walden MD Methadone Ql (U) Negative Normal [facility] Comment on above: Performed By: #### C PDAU #### [facility] [address] [place], [place] [phone] Director Of Operations For Therapy: Hernan Walden MD Methamphetamine, Ur Negative [facility] Comment on above: Performed By: #### C PDAU #### [facility] [address] [place], [place] [phone] Director Of Operations For Therapy: Hernan Walden MD Opiate(s), Ur Negative Normal [facility] Comment on above: Performed By: #### C PDAU #### [facility] [address] [place], [place] [phone] Director Of Operations For Therapy: Hernan Walden MD Oxycodone, Urine Negative Normal NEG [facility] Comment on above: Performed By: #### C PDAU #### [facility] [address] [place] [address] Director Of Operations For Therapy: Hernan Walden MD Phencyclidine, Ur Negative Normal [facility] Comment on above: Performed By: #### C PDAU #### [facility] [address] [place], [place] [phone] Director Of Operations For Therapy: Hernan Walden MD Propoxyphene,Urine Negative Normal NEG [facility] Comment on above: Performed By: #### C PDAU #### [facility] [address] [place] [address] Director Of Operations For Therapy: Hernan Walden MD Tricyclic antidepressants Screen Ql (U) Negative Normal NEG [facility] Comment on above: Result Comment: Drug screen results are to be used for medical purposes only. All positive results are unconfirmed. Testing for employment or legal uses should be sent to a reference laboratory for confirmation. Performed By: #### C PDAU #### [facility] [address] [place], [place] [id number] Director Of Operations For Therapy: Hernan Walden MD Interpretive Info NOT REPORTED Normal [facility] Comment on above: Performed By: #### C PDAU #### [facility] [address] [place], [place] [id number] Director Of Operations For Therapy: Hernan Walden MD MDMA, Urine NOT REPORTED Normal NEG [facility] Comment on above: Performed By: #### C PDAU #### [facility] [address] [place], [place] [id number] Director Of Operations For Therapy: Hernan Walden MD FREE T4on 11-05-2018 T4 free mass conc 1.11 ng/dL Normal 0.78-2.19 [facility] Comment on above: Performed By: #### F T4 #### [facility] [address] [address] Jj Gerber GLYCOHEMOGLOBIN A1Con 2018 Glucose mass conc 126 mg/dL Normal [facility] Comment on above: Performed By: #### A 1C #### [facility] [address] [id number] Jj Gerber Hemoglobin A1c/Hemoglobin.total mass fraction (Bld) 6.0 % Normal <=6.0 [facility] Comment on above: Performed By: #### A 1C #### [facility] [address] [place], [place] [address] Jj Zabrina LIPID PROFILEon 11-05-2018 CHOL-HDL RATIO NORM SEE BELOW Normal [facility] Comment on above: Result Comment: 3.3 - 4.4 LOW RISK 4.4 - 7.1 AVERAGE RISK 7.1 - 11.0 MODERATE RISK >11.0 HIGH RISK Performed By: #### C MP, TSH, LIPID #### [facility] [address] [id number] Jj Zabrina Cholesterol in HDL mass conc > or = 60 mg/dl - LOW CARDIOVASCULAR RISK <40 mg/dl - HIGH CARDIOVASCULAR RISK Normal [facility] Comment on above: Performed By: #### C MP, TSH, LIPID #### [facility] [address] [id number] Jj Zabrina Cholesterol in HDL mass conc 33 mg/dL Normal [facility] Comment on above: Performed By: #### C MP, TSH, LIPID #### [facility] [address] [place], [place] [address] Jj Zabrina Cholesterol in LDL mass conc SEE BELOW Normal [facility] Comment on above: Result Comment: <100 mg/dl OPTIMAL 100 - 129 mg/dl NEAR OR ABOVE OPTIMAL 130 - 159 mg/dl BORDERLINE HIGH 160 - 189 mg/dl HIGH >190 mg/dl VERY HIGH Performed By: #### C MP, TSH, LIPID #### [facility] [address] [id number] Jj Zabrina Cholesterol in LDL mass conc 93.6 mg/dL Normal [facility] Comment on above: Performed By: #### C MP, TSH, LIPID #### [facility] [address] [id number] Jj Zabrina Cholesterol mass conc 136 mg/dL Normal <=200 [facility] Comment on above: Performed By: #### C MP, TSH, LIPID #### [facility] [address] [place], [place] [address] Jj Zabrina Cholesterol.total/Cho lesterol in HDL mass ratio 4.1 {ratio} Normal [facility] Comment on above: Performed By: #### C MP, TSH, LIPID #### [facility] [address] [id number] Jj Gerber Triglyceride mass conc 47 mg/dL Normal <=150 [facility] Comment on above: Performed By: #### C MP, TSH, LIPID #### [facility] [address] [id number] Jjmonroe Gerber VLDL CALC 9.4 mg/dL Normal [facility] Comment on above: Performed By: #### C MP, TSH, LIPID #### [facility] [address] [address] Jjmonroe Gerber PROF 14(COMP METB)on 019 Albumin mass conc 3.7 g/dL Normal 3.5-5.0 [facility] Comment on above: Performed By: #### C MP, TSH, LIPID #### [facility] [address] [address] Jj Gerber Albumin/Globulin mass ratio 1.2 {ratio} Normal [facility] Comment on above: Performed By: #### C MP, TSH, LIPID #### [facility] [address] [id number] Jj Zabrina ALP enzyme act/vol 66 U/L Normal 38-[address] [facility] Comment on above: Performed By: #### C MP, TSH, LIPID #### [facility] [address] [id number] Jj Zabrina ALT enzyme act/vol 45 U/L Normal 9-52 [facility] Comment on above: Performed By: #### C MP, TSH, LIPID #### [facility] [address] [place], [place] [address] Jjmonroe Gerber Anion gap molar conc 12.0 mmol/L Normal [facility] Comment on above: Performed By: #### C MP, TSH, LIPID #### [facility] [address] [id number] Jj Zabrina AST enzyme act/vol 18 U/L Normal 14-[address] [facility] Comment on above: Performed By: #### C MP, TSH, LIPID #### [facility] [address] [address] Jj Zabrina Bilirubin Ql (U) 0.5 mg/dL Normal 0.2-1.3 [facility] Comment on above: Performed By: #### C MP, TSH, LIPID #### [facility] [address] [address] Jj Zabrina Calcium mass conc 8.7 mg/dL Normal 8.4-10.2 [facility] Comment on above: Performed By: #### C MP, TSH, LIPID #### [facility] [address] [address] Jj Zabrina Chloride molar conc 105 mmol/L Normal 98-107 [facility] Comment on above: Performed By: #### C MP, TSH, LIPID #### [facility] [address] [address] Jj Zabrina CO2 molar conc 26.9 mmol/L Normal 22.0-30.0 [facility] Comment on above: Performed By: #### C MP, TSH, LIPID #### [facility] [address] [address] Jj Zabrina Creatinine mass conc 0.83 mg/dL Normal 0.52-1.04 [facility] Comment on above: Performed By: #### C MP, TSH, LIPID #### [facility] [address] [address] Jj Zabrina EGFR-AF RUSSIAN >60 Normal >=60 [facility] Comment on above: Performed By: #### C MP, TSH, LIPID #### [facility] [address] [address] Jj Zabrina EGFR-NON AF RUSSIAN >60 Normal >=60 [facility] Comment on above: Performed By: #### C MP, TSH, LIPID #### [facility] [address] [address] Jj Zabrina Globulin mass conc (S) 3.2 g/dL Normal [facility] Comment on above: Performed By: #### C MP, TSH, LIPID #### [facility] [address] [address] Jj Zabrina Glucose mass conc 95 mg/dL Normal 74-106 [facility] Comment on above: Performed By: #### C MP, TSH, LIPID #### [facility] [address] [address] Jj Zabrina Potassium molar conc 3.9 mmol/L Normal 3.4-5.0 [facility] Comment on above: Performed By: #### C MP, TSH, LIPID #### [facility] [address] [address] Jj Zabrina Protein mass conc 6.9 g/dL Normal 6.1-8.2 [facility] Comment on above: Performed By: #### C MP, TSH, LIPID #### [facility] [address] [address] Jj Sharmaen Sodium molar conc 140 mmol/L Normal 137-145 [facility] Comment on above: Performed By: #### C MP, TSH, LIPID #### [facility] [address] [address] Jj Zabrina Urea nitrogen mass conc 8.0 mg/dL Normal 7.0-17.0 [facility] Comment on above: Performed By: #### C MP, TSH, LIPID #### [facility] [address] [address] Jj Zabrina Urea nitrogen/Creatinine mass ratio 9.6 mg/mg Normal [facility] Comment on above: Performed By: #### C MP, TSH, LIPID #### [facility] [address] [address] Jj Zabrina TSHon 11-05-2018 Thyrotropin Qn 1.460 uIU/mL Normal 0.470-4.680 [facility] Comment on above: Performed By: #### C MP, TSH, LIPID #### [facility] [address] [address] Jj Zabrina Thyrotropin Qn SEE BELOW Normal [facility] Comment on above: Result Comment: <0.3 4 UIU/ml HYPERTHYROID 0.34-5.60 UIU/ml EUTHYROID >5.60 UIU/ml HYPOTHYROID Performed By: #### C MP, TSH, LIPID #### [facility] [address] [place], [place] [address] Jj Gerber US Noe 11-05-2018 US ABD [address] [place] [address] Patient: XUAN VANCE Exam Date: 11/05/2018 : 1990 Gender:F Ordering : MARYLIN MORROW Admission #: [id number] Family : Order #: [id number] CLICK HERE TO VIEW EXAM RADIOLOGY REPORT PROCEDURE: ULTRASOUND ABDOMEN COMPARISON: None. INDICATIONS: Acute right and left upper quadrant pain TECHNIQUE: Complete ultrasound examination of the abdomen was performed. FINDINGS: LIVER: Normal size and echotexture. Color Doppler demonstrates patent hepatic veins. BILIARY: No abnormal dilation or visible calculus. Maximum common bile duct diameter: 3.9 mm. GALLBLADDER: No visible gallstones, wall thickening, or pericholecystic fluid. Negative sonographic Benitez's sign. PORTAL VEIN: Duplex Doppler demonstrates normal hepatopetal flow pattern averaging 45 cm/s. AORTA: Duplex Doppler demonstrates normal waveform and flow, 173/28 cm/s. No aneurysm. IVC: Patent. PANCREAS: No visible mass, abnormal atrophy, or duct dilation. RIGHT KIDNEY: Cortical thinning of uncertain etiology; 4.3 mm in thickness. No visible mass, calculus or obstruction. Length: 9.5 cm LEFT KIDNEY: No visible mass, calculus, or obstruction. Cortical thickness is 8 mm. Length: 11.0 cm SPLEEN: Maximum longitudinal diameter, 9.5 cm. Accessory splenules noted adjacent the spleen. OTHER: No free fluid. CONCLUSION: 1. No acute or specific findings to account for the patient's symptoms. 2. The cortex of the right kidney is thinner than expected for the patient's age, 4.3 mm; of uncertain etiology. Otherwise normal appearance of the kidney. Dictated by: Rebeca Cano M.D. on 11/05/2018 at 09:42 Approved by: Rebeca Cano M.D. on 11/05/2018 at 09:49 Normal [facility] Vital Signs Date Time Vital Sign Value Performing Clinician Facility 03-21-2025 13:07-0400 Body height 149.86 cm Sean Main MD Work Phone: [facility] 03-21-2025 13:07-0400 Body mass index (BMI) [Ratio] 43 kg/m2 Sean Main MD Work Phone: [facility] 03-21-2025 13:07-0400 Body temperature 98.7 [degF] Sean Main MD Work Phone: [facility] 03-21-2025 13:07-0400 Body weight 96.61 kg Sean Main MD Work Phone: [facility] 03-21-2025 13:07-0400 Diastolic blood pressure 104 mm[Hg] Sean Main MD Work Phone: [facility] 03-21-2025 13:07-0400 Heart rate 93 /min Sean Main MD Work Phone: [facility] 03-21-2025 13:07-0400 Respiratory rate 18 /min Sean Main MD Work Phone: [facility] 03-21-2025 13:07-0400 SaO2% (BldA) [Mass fraction] 97 % Sean Main MD Work Phone: [facility] 03-21-2025 13:07-0400 Systolic blood pressure 157 mm[Hg] Sean Main MD Work Phone: [facility] 03-09-2025 09:52-0400 Body height 149.9 cm Price CASEY Work Phone: [facility] 03-09-2025 09:52-0400 Body mass index (BMI) [Ratio] 43.48 kg/m2 Price CASEY Work Phone: [facility] 03-09-2025 09:52-0400 Body temperature 97.7 [degF] Price CASEY Work Phone: [facility] 03-09-2025 09:52-0400 Body weight 97.7 kg Price Samson SALES DEPARTMENT SUPERVISOR-[employer] Work Phone: [facility] 03-09-2025 09:52-0400 Diastolic blood pressure 98 mm[Hg] Price Samson SALES DEPARTMENT SUPERVISOR-[employer] Work Phone: [facility] 03-09-2025 09:52-0400 Heart rate 77 /min Pricechalino Samson SALES DEPARTMENT SUPERVISOR-[employer] Work Phone: [facility] 03-09-2025 09:52-0400 Respiratory rate 18 /min Pricechalino Samson SALES DEPARTMENT SUPERVISOR-[employer] Work Phone: [facility] 03-09-2025 09:52-0400 SaO2% (BldA) [Mass fraction] 97 % Price Samson SALES DEPARTMENT SUPERVISOR-[employer] Work Phone: [facility] 03-09-2025 09:52-0400 Systolic blood pressure 138 mm[Hg] Price Samson SALES DEPARTMENT SUPERVISOR-[employer] Work Phone: [facility] 01-18-2025 09:21-0400 Body height 149.9 cm Price Samson SALES DEPARTMENT SUPERVISOR-[employer] Work Phone: [facility] 01-18-2025 09:21-0400 Body mass index (BMI) [Ratio] 44.49 kg/m2 Price Samson SALES DEPARTMENT SUPERVISOR-[employer] Work Phone: [facility] 01-18-2025 09:21-0400 Body temperature 97.9 [degF] Price Samson SALES DEPARTMENT SUPERVISOR-[employer] Work Phone: [facility] 01-18-2025 09:21-0400 Body weight 99.97 kg Price Samson SALES DEPARTMENT SUPERVISOR-[employer] Work Phone: [facility] 01-18-2025 09:21-0400 Diastolic blood pressure 88 mm[Hg] Price Samson SALES DEPARTMENT SUPERVISOR-[employer] Work Phone: [facility] 01-18-2025 09:21-0400 Heart rate 103 /min Pricechalino Samson SALES DEPARTMENT SUPERVISOR-[employer] Work Phone: [facility] 01-18-2025 09:21-0400 Respiratory rate 20 /min Pricechalino Samson SALES DEPARTMENT SUPERVISOR-[employer] Work Phone: [facility] 01-18-2025 09:21-0400 SaO2% (BldA) [Mass fraction] 95 % Pricechalino Samson SALES DEPARTMENT SUPERVISOR-[employer] Work Phone: [facility] 01-18-2025 09:21-0400 Systolic blood pressure 140 mm[Hg] Pricechalino Samson SALES DEPARTMENT SUPERVISOR-[employer] Work Phone: [facility] 11-10-2024 10:52-0400 Diastolic blood pressure 82 mm[Hg] Price Samson SALES DEPARTMENT SUPERVISOR-[employer] Work Phone: [facility] 11-10-2024 10:52-0400 Systolic blood pressure 128 mm[Hg] Pricechalino Samson SALES DEPARTMENT SUPERVISOR-[employer] Work Phone: [facility] 11-10-2024 10:46-0400 Body height 149.9 cm Price Samson SALES DEPARTMENT SUPERVISOR-[employer] Work Phone: [facility] 11-10-2024 10:46-0400 Body mass index (BMI) [Ratio] 44.03 kg/m2 Pricechalino Samson SALES DEPARTMENT SUPERVISOR-[employer] Work Phone: [facility] 11-10-2024 10:46-0400 Body temperature 97.59 [degF] Pricechalino Samson SALES DEPARTMENT SUPERVISOR-[employer] Work Phone: [facility] 11-10-2024 10:46-0400 Body weight 98.93 kg Pricechalino Samson SALES DEPARTMENT SUPERVISOR-[employer] Work Phone: [facility] 11-10-2024 10:46-0400 Heart rate 97 /min Pricechalino Samson SALES DEPARTMENT SUPERVISOR-[employer] Work Phone: [facility] 11-10-2024 10:46-0400 Respiratory rate 20 /min Price Mali SALES DEPARTMENT SUPERVISOR-[employer] Work Phone: [facility] 11-10-2024 10:46-0400 SaO2% (BldA) [Mass fraction] 97 % Price Samson APRN-[employer]IC [employer] Work Phone: [facility] 10-13-2024 08:21-0500 Body height 149.9 cm Price Samson APRN-[employer] Work Phone: [facility] 10-13-2024 08:21-0500 Body mass index (BMI) [Ratio] 44.71 kg/m2 Price Samson SALES DEPARTMENT SUPERVISOR-[employer] Work Phone: [facility] 10-13-2024 08:21-0500 Body temperature 98.01 [degF] Price Samson APRN-[employer] Work Phone: [facility] 10-13-2024 08:21-0500 Body weight 100.47 kg Price Samson SALES DEPARTMENT SUPERVISOR-[employer] Work Phone: [facility] 10-13-2024 08:21-0500 Diastolic blood pressure 80 mm[Hg] Price Samson APRN-[employer] Work Phone: [facility] 10-13-2024 08:21-0500 Heart rate 87 /min Price Samson APRN-[employer] Work Phone: [facility] 10-13-2024 08:21-0500 Respiratory rate 18 /min Price Samson APRN-[employer] Work Phone: [facility] 10-13-2024 08:21-0500 SaO2% (BldA) [Mass fraction] 97 % Price Samson APRN-[employer] Work Phone: [facility] 10-13-2024 08:21-0500 Systolic blood pressure 134 mm[Hg] Price Samson SALES DEPARTMENT SUPERVISOR-[employer] Work Phone: [facility] 09-08-2024 11:39-0500 Body height 149.9 cm Price Mali SALES DEPARTMENT SUPERVISOR-[employer] Work Phone: [facility] [employer] 09-08-2024 11:39-0500 Body mass index (BMI) [Ratio] 44.09 kg/m2 Price Samson SALES DEPARTMENT SUPERVISOR-[employer] Work Phone: [facility] 09-08-2024 11:39-0500 Body temperature 97.7 [degF] Price Samson SALES DEPARTMENT SUPERVISOR-[employer] Work Phone: [facility] 09-08-2024 11:39-0500 Body weight 99.07 kg Price Samson SALES DEPARTMENT SUPERVISOR-[employer] Work Phone: [facility] [employer] 09-08-2024 11:39-0500 Diastolic blood pressure 80 mm[Hg] Price Samson SALES DEPARTMENT SUPERVISOR-[employer] Work Phone: [facility] [employer] 09-08-2024 11:39-0500 Heart rate 83 /min Price Samson APRN-[employer]ER Work Phone: [facility] 09-08-2024 11:39-0500 Respiratory rate 18 /min Price Samson APRN-[employer] Work Phone: [facility] 09-08-2024 11:39-0500 SaO2% (BldA) [Mass fraction] 98 % Priec Samson APRN-[employer] Work Phone: [facility] [employer] 09-08-2024 11:39-0500 Systolic blood pressure 132 mm[Hg] Price Samson SALES DEPARTMENT SUPERVISOR-[employer] Work Phone: [facility] 08-25-2024 11:19-0500 Body height 149.9 cm Price Samson SALES DEPARTMENT SUPERVISOR-[employer] Work Phone: [facility] 08-25-2024 11:19-0500 Body mass index (BMI) [Ratio] 43.51 kg/m2 Price Samson SALES DEPARTMENT SUPERVISOR-[employer] Work Phone: [facility] 08-25-2024 11:19-0500 Body temperature 98.1 [degF] Price Samson SALES DEPARTMENT SUPERVISOR-[employer] Work Phone: [facility] 08-25-2024 11:19-0500 Body weight 97.7 kg Price Samson SALES DEPARTMENT SUPERVISOR-[employer] Work Phone: [facility] 08-25-2024 11:19-0500 Diastolic blood pressure 80 mm[Hg] Price Samson SALES DEPARTMENT SUPERVISOR-[employer] Work Phone: [facility] 08-25-2024 11:19-0500 Heart rate 85 /min Price Samson SALES DEPARTMENT SUPERVISOR-[employer] Work Phone: [facility] 08-25-2024 11:19-0500 Respiratory rate 18 /min Price Samson SALES DEPARTMENT SUPERVISOR-[employer]ER Work Phone: [facility] 08-25-2024 11:19-0500 SaO2% (BldA) [Mass fraction] 97 % Price Samson SALES DEPARTMENT SUPERVISOR-[employer] Work Phone: [facility] 08-25-2024 11:19-0500 Systolic blood pressure 126 mm[Hg] Price Samson SALES DEPARTMENT SUPERVISOR-[employer] Work Phone: [facility] 08-04-2024 08:52-0500 Body height 152.4 cm Mark Candelaria MD Work Phone: [facility] 08-04-2024 08:52-0500 Body mass index (BMI) [Ratio] 42.58 kg/m2 Mark Candelaria MD Work Phone: [facility] 08-04-2024 08:52-0500 Body weight 98.88 kg Mark Candelaria MD Work Phone: [facility] 08-04-2024 08:52-0500 Diastolic blood pressure 103 mm[Hg] Mark Candelaria MD Work Phone: [facility] 08-04-2024 08:52-0500 Systolic blood pressure 167 mm[Hg] Mark Candelaria MD Work Phone: [facility] 06-22-2024 10:56-0500 Body height 149.9 cm Price Samson SALES DEPARTMENT SUPERVISOR-[employer] Work Phone: [facility] 06-22-2024 10:56-0500 Body mass index (BMI) [Ratio] 45.14 kg/m2 Pricechalino Samson SALES DEPARTMENT SUPERVISOR-[employer]ER Work Phone: [facility] 06-22-2024 10:56-0500 Body temperature 98.1 [degF] Price Samson SALES DEPARTMENT SUPERVISOR-[employer] Work Phone: [facility] 06-22-2024 10:56-0500 Body weight 101.38 kg Price Samson SALES DEPARTMENT SUPERVISOR-[employer] Work Phone: [facility] 06-22-2024 10:56-0500 Diastolic blood pressure 90 mm[Hg] Price Samson SALES DEPARTMENT SUPERVISOR-[employer] Work Phone: [facility] 06-22-2024 10:56-0500 Heart rate 88 /min Pricechalino Samson SALES DEPARTMENT SUPERVISOR-[employer] Work Phone: [facility] 06-22-2024 10:56-0500 Respiratory rate 18 /min Price Samson SALES DEPARTMENT SUPERVISOR-[employer] Work Phone: [facility] 06-22-2024 10:56-0500 SaO2% (BldA) [Mass fraction] 96 % Price Samson SALES DEPARTMENT SUPERVISOR-[employer] Work Phone: [facility] 06-22-2024 10:56-0500 Systolic blood pressure 126 mm[Hg] Price Samson SALES DEPARTMENT SUPERVISOR-[employer] Work Phone: [facility] 01-25-2024 13:30-0400 Body mass index (BMI) [Ratio] 44.11 kg/m2 Tamara Brady MD Work Phone: [facility] 01-25-2024 13:30-0400 Body weight 99.07 kg Tamara Brady MD Work Phone: [facility] 01-25-2024 13:30-0400 Diastolic blood pressure 86 mm[Hg] Tamara Brady MD Work Phone: [facility] [employer] 01-25-2024 13:30-0400 Systolic blood pressure 128 mm[Hg] [facility]-04-[facility] 08:25-0400 Body height 149.9 cm Tamara Brady [facility] 01-04-2024 08:25-0400 Body mass index (BMI) [Ratio] 43.75 kg/m2 Tamara Brady [facility] 01-04-2024 08:25-0400 Body weight 98.25 kg Tamara Brady [facility] 01-04-2024 08:25-0400 Diastolic blood pressure 92 mm[Hg] Tamara Brady [facility] 01-04-2024 08:25-0400 Systolic blood pressure 140 mm[Hg] [facility] Brady [facility] 08-03-2022 13:30-0500 Body height 149.86 cm Kitty Hyatt Other [employer] Other 08-03-2022 13:30-0500 Body mass index (BMI) [Ratio] 36.35 kg/m2 Kitty Hyatt Other [employer] Other 08-03-2022 13:30-0500 Body temperature 98.3 [degF] Kitty Hyatt Other [employer] Other 08-03-2022 13:30-0500 Body weight 81.65 kg Kitty Hyatt Other [employer] Other 08-03-2022 13:30-0500 Respiratory rate 18 /min Kitty Hyatt Other [employer] Other 08-03-2022 13:30-0500 SaO2% (BldA) [Mass fraction] 100 % Kitty Hyatt Other [employer] Other 09-23-2019 08:30-0500 Body Temperature 98.6 [degF] [employer] Phone: 09-23-2019 08:30-0500 BP Diastolic 76 mm[Hg] [employer] Phone: 09-23-2019 08:30-0500 BP Systolic 120 mm[Hg] [employer] Phone: 09-23-2019 08:30-0500 Pulse (Heart Rate) 87 /min [employer] Phone: 09-23-2019 08:30-0500 Respiratory Rate 16 /min [employer] Phone: 09-20-2019 22:47-0500 Pulse Oximetry 97 % [employer] Phone: 09-20-2019 05:25-0500 BMI (Body Mass Index) 44.03 kg/m2 [employer] Phone: 09-20-2019 05:25-0500 Body weight 98.88 kg [employer] Phone: 09-20-2019 05:25-0500 Height 149.9 cm [employer] Phone: 09-12-2019 07:29-0500 Body temperature 98.01 [degF] [employer] Work Phone: [employer] Phone: 09-12-2019 07:29-0500 Diastolic blood pressure 58 mm[Hg] Lenore Nolasco MD Work Phone: [employer] Work Phone: 09-12-2019 07:29-0500 Heart rate 95 /min Lenore Nolasco MD Work Phone: [facility] Work Phone: 09-12-2019 07:29-0500 Respiratory rate 14 /min Lenore Nolasco MD Work Phone: [facility] Work Phone: 09-12-2019 07:29-0500 Systolic blood pressure 113 mm[Hg] Lenore Nolasco MD Work Phone: [facility] Work Phone: 09-08-2019 08:05-0500 Diastolic blood pressure 62 mm[Hg] Lenore Nolasco MD Work Phone: [facility] Work Phone: 09-08-2019 08:05-0500 Heart rate 96 /min Lenore Nolasco MD Work Phone: [facility] Work Phone: 09-08-2019 08:05-0500 Systolic blood pressure 117 mm[Hg] Lenore Nolasco MD Work Phone: [facility] Work Phone: 09-08-2019 08:04-0500 Body height 149.9 cm Lenore Nolasco MD Work Phone: [facility] Work Phone: 09-08-2019 08:04-0500 Body mass index (BMI) [Ratio] 43.22 kg/m2 Lenore Nolasco MD Work Phone: [facility] Work Phone: 09-08-2019 08:04-0500 Body temperature 98.01 [degF] Lenore Nolasco MD Work Phone: [facility] Work Phone: 09-08-2019 08:04-0500 Body weight 97.07 kg Lenore Nolasco MD Work Phone: [facility] Work Phone: 09-08-2019 08:04-0500 Respiratory rate 14 /min Lenore Nolasco MD Work Phone: [facility] Work Phone: 04-05-2019 12:18-0400 BP Diastolic 51 mm[Hg] [place] 04-05-2019 12:18-0400 BP Systolic 105 mm[Hg] [place] 04-05-2019 12:18-0400 Pulse (Heart Rate) 65 /min [place], [place] 04-05-2019 12:18-0400 Respiratory Rate 16 /min [place], [place] 04-05-2019 09:33-0400 Pulse Oximetry 98 % [place] 04-05-2019 06:30-0400 BMI (Body Mass Index) 36.76 kg/m2 [place], [place] 04-05-2019 06:30-0400 Body Temperature 97 [degF] [place] 04-05-2019 06:30-0400 Body weight 82.56 kg [place] 04-05-2019 06:30-0400 Height 149.9 cm [place] Encounters Encounter Date Encounter Type Care Provider Facility Start: 03-21-2025 End: 03-21-2025 ambulatory Sean Main MD Work Phone: [facility] Work Phone: Start: 03-21-2025 End: 03-21-2025 Patient encounter procedure Xuan Kemp SALES DEPARTMENT SUPERVISOR -[facility] Work Phone: Start: 03-09-2025 End: 03-09-2025 Patient encounter status Price Samson SALES DEPARTMENT SUPERVISOR-[employer]RAW[employer] Work Phone: [facility] Start: 03-09-2025 End: 03-09-2025 Periodic preventive med est patient 18-39 yrs Price Samson SALES DEPARTMENT SUPERVISOR-OPTIC [employer] DRAWER Work Phone: [facility] Comment on above: Wellness examination (Primary Dx); Moderate episode of recurrent major depressive disorder (CMS-HCC); Anxiety; Tension headache; Class 3 severe obesity due to excess calories without serious comorbidity with body mass index (BMI) of 40.0 to 44.9 in adult ([facility]); Atopic dermatitis, unspecified type; Bilateral hearing loss, unspecified hearing loss type; Mild intermittent reactive airway disease without complication; Elevated blood pressure reading Start: 03-09-2025 End: 03-09-2025 ambulatory [facility] Start: 03-09-2025 Encounter for [facility] adult medical examination without abnormal findings [facility] Start: 01-18-2025 End: 01-18-2025 Office outpatient visit 25 minutes Pricechalino Samson SALES DEPARTMENT SUPERVISOR-[employer] DRAWER Work Phone: [facility] Comment on above: Moderate persistent asthma, unspecified whether complicated (Primary Dx); Anxiety; Moderate episode of recurrent major depressive disorder ([facility]); Seasonal allergic rhinitis due to pollen; Class 3 severe obesity due to excess calories with serious comorbidity and body mass index (BMI) of 40.0 to 44.9 in adult ([facility]) Start: 01-18-2025 End: 01-18-2025 ambulatory [facility] Start: 11-27-2024 End: 11-27-[address] [facility] Start: 11-20-2024 End: 11-20-2024 Orders Only Price Kerri Mali SALES DEPARTMENT SUPERVISOR-[employer] DRAWER Work Phone: [facility] Start: 11-10-2024 End: 11-10-2024 Office outpatient visit 15 minutes Price Kerri Samson SALES DEPARTMENT SUPERVISOR-OPTIC [employer] DRAWER [facility] Comment on above: Moderate episode of recurrent major depressive disorder (CMS- HCC) (Primary Dx); Anxiety; Mild intermittent reactive airway disease without complication Start: 11-10-2024 End: 11-10-2024 ambulatory [facility] Start: 10-13-2024 End: 10-13-2024 Office outpatient visit 15 minutes [facility] SALES DEPARTMENT SUPERVISOR-[employer]IC [employer] DRAWER Work Phone: [facility] Comment on above: Moderate episode of recurrent major depressive disorder (CMS- HCC) (Primary Dx); Primary insomnia; Jung hemangioma Start: 10-13-2024 End: 10-13-2024 ambulatory [facility] Start: 09-08-2024 End: 09-08-2024 Office outpatient visit 15 minutes [facility] SALES DEPARTMENT SUPERVISOR-[employer]IC [employer] DRAWER Work Phone: [facility] Comment on above: Anxiety (Primary Dx) ; Moderate episode of recurrent major depressive disorder (CMS-HCC) Start: 09-08-2024 End: 09-08-2024 ambulatory [facility] Start: 08-25-2024 End: 08-25-2024 Office outpatient visit 15 minutes [facility] SALES DEPARTMENT SUPERVISOR-[employer] DRAWER Work Phone: [facility] Comment on above: Anxiety (Primary Dx) ; Atopic dermatitis, unspecified type Start: 08-25-2024 End: 08-25-2024 ambulatory [facility] Start: 08-04-2024 End: 08-04-2024 Bamboo flowsheet Mark Candelaria MD Work Phone: [facility] Start: 08-04-2024 End: 08-04-2024 Bamboo flowsheet Mark Candelaria MD Work Phone: [facility] Start: 08-04-2024 End: 08-04-2024 Office outpatient new 45 minutes Mark Candelaria MD Work Phone: [facility] Comment on above: Strep tonsillitis (P rimary Dx) Start: 08-04-2024 End: 08-04-2024 ambulatory MARK CANDELARIA Not Available Start: 08-02-2024 Patient encounter status Charlie Candelaria MD Work Phone: [facility] Start: 07-28-2024 End: 07-28-2024 ambulatory [facility] Start: 06-22-2024 End: 06-22-2024 Office outpatient visit 15 minutes [facility] SALES DEPARTMENT SUPERVISOR-[employer]IC [employer] DRAWER Work Phone: [facility] Comment on above: Upper respiratory sy mptom (Primary Dx); Moderate episode of recurrent major depressive disorder ([facility]); Anxiety Start: 06-22-2024 End: 06-22-2024 ambulatory [facility] Start: 01-25-2024 End: 01-25-2024 Patient encounter procedure Tamara Brady MD Work Phone: [facility] Comment on above: Suppressed periods ( Primary Dx); Pre-procedure lab exam; Screening for STD (sexually transmitted disease) Start: 01-25-2024 End: 01-25-2024 Patient encounter status Tamara Brady MD Work Phone: [facility] Start: 01-25-2024 End: 01-25-2024 ambulatory [facility] Start: 01-04-2024 End: 01-04-2024 Office outpatient visit 15 minutes Tamara Brady MD Work Phone: [facility] Comment on above: Mittelschmerz (Prima ry Dx); Encounter for other general counseling or advice on contraception Start: 01-03-2024 End: 01-04-2024 Emergency department patient visit [facility] Start: 01-02-2024 End: 01-04-2024 Emergency department patient visit [facility] Start: 01-02-2024 End: 01-03-2024 Emergency department patient visit [facility] Start: 12-23-2023 End: 12-23-2023 Refill Price Samson SALES DEPARTMENT SUPERVISOR-[employer] DRAWER Work Phone: [facility] Start: 05-05-2023 ambulatory Martell Larson [facility] acility:[facility] Start: 08-03-2022 End: 08-03-2022 ambulatory Kitty Hyatt Other [facility] Other Start: 08-03-2022 Office outpatient ne w 30 minutes Kitty Hyatt [facility] Start: 11-06-2019 End: 11-07-2019 Patient encounter procedure [facility] Start: 11-06-2019 End: 11-06-2019 Subsequent hospital visit by physician Marylin Morrow [facility] Laboratory Comment on above: Routine f ollow-up Start: 09-20-2019 End: 09-23-2019 Evaluation and management of inpatient [facility] Start: 09-20-2019 End: 09-23-2019 Evaluation and management of inpatient [facility] Work Phone: [facility] Labor and Delivery Comment on above: S/P primary low bowen sverse (Primary Dx) Start: 09-11-2019 End: 09-12-2019 Patient encounter procedure [facility] Start: 09-11-2019 End: 09-12-2019 Subsequent hospital visit by physician Lenore Nolasco MD Work Phone: [facility] Labor and Delivery Start: 09-08-2019 End: 09-08-2019 Patient encounter procedure [facility] Start: 09-08-2019 End: 09-08-2019 Subsequent hospital visit by physician Lenore Nolasco MD Work Phone: [facility] Labor and Delivery Start: 09-01-2019 End: 09-02-2019 Patient encounter procedure [facility] Start: 09-01-2019 End: 09-01-2019 Subsequent hospital visit by physician Marylin Morrow SALES DEPARTMENT SUPERVISOR - [employer] Work Phone: [facility] Laboratory Comment on above: 36 weeks gestation o f Start: 04-05-2019 End: 04-05-2019 Evaluation and management of inpatient [facility] Start: 04-05-2019 End: 04-05-2019 [facility] and [facility] Work [facility]: [facility] Labor and Delivery Start: 03-20-2019 End: 03-21-2019 Patient encounter procedure [facility] Start: 02-07-2019 End: 02-08-2019 Patient encounter procedure [facility] Start: 11-21-2018 Patient encounter procedure Price Samson SALES DEPARTMENT SUPERVISOR-[employer] DRAWER Work Phone: [facility] Start: 11-05-2018 End: 11-06-2018 Patient encounter procedure [facility] Facility:[facility] Start: 11-02-2018 End: 11-03-2018 Patient encounter procedure [facility] Facility: Start: 11-02-2018 Physical examination Price ruiz SALES DEPARTMENT SUPERVISOR-[employer]IC [employer] DRAWER Work Phone: [facility] Procedures Date Procedure Procedure Detail Performing Clinician Start: 03-09-2025 Adult depression screening assessment Price Samson SALES DEPARTMENT SUPERVISOR-[employer]RAW[employer] Work Phone: Start: 01-18-2025 Adult depression screening assessment Price Samson SALES DEPARTMENT SUPERVISOR-[employer] Work Phone: Start: 11-10-2024 Adult depression screening assessment Price Samson SALES DEPARTMENT SUPERVISOR-[employer] Work Phone: Start: 10-13-2024 Adult depression screening assessment Price Samson SALES DEPARTMENT SUPERVISOR-[employer]RAW[employer] Work Phone: Start: 09-08-2024 Adult depression screening assessment Price Samson SALES DEPARTMENT SUPERVISOR-[employer]RAW[employer] Work Phone: Start: 08-25-2024 Follow-up visit Follow-up PRICE SAMSON Start: 08-25-2024 Adult depression screening assessment Price Samson SALES DEPARTMENT SUPERVISOR-[employer]RAW[employer] Work Phone: Start: 06-22-2024 POCT INFLUENZA A/INFLUENZA B/SARS-COV-2 VERITOR Price Samson SALES DEPARTMENT SUPERVISOR-[facility] Work Phone: Start: 06-22-2024 Adult depression screening assessment Price Samson [facility] Work Phone: Start: 01-25-2024 Urine test visual color cmprsn rufinos Tamara Brady MD Work Phone: Start: 05-14-2023 Adult depression screening assessment [facility] Work Phone: Start: 12-21-2022 Microscopic observation [Identifier] in Cervix by Cyto stain Price Samson [facility] Work Phone: Start: 10-22-2022 H/O: section S/P primary low transverse Price Samson [facility] Work Phone: Start: 11-06-2019 Screen pap by william haddad md supsarath NOLASCO Start: 09-23-2019 Ct head/brain w/o contrast material LENORE NOLASCO Start: 09-23-2019 Basic metabolic panel calcium total LENORE NOLASCO Start: 09-23-2019 IP CONSULT TO HOSPITALIST LENORE NOLASCO Start: 09-23-2019 Ct head/brain w/o contrast material Dipakkumar P Bray Work Phone: Start: 09-23-2019 Basic metabolic panel calcium total Dipakkumar P Bray Work Phone: Start: 09-23-2019 INITIATE OXYGEN THERAPY PROTOCOL LENORE NOLASCO Start: 09-23-2019 DISCHARGE PATIENT LENORE NOLASCO Start: 09-23-2019 INCENTIVE SPIROMETRY NURSING LENORE NOLASCO Start: 09-22-2019 INITIATE OXYGEN THERAPY PROTOCOL LENORE NOLASCO Start: 09-22-2019 INCENTIVE SPIROMETRY NURSING LENORE NOLASCO Start: 09-21-2019 INCENTIVE SPIROMETRY NURSING LENORE NOLASCO Start: 09-21-2019 INITIATE OXYGEN THERAPY PROTOCOL LENORE NOLASCO Start: 09-21-2019 Blood count hemoglobin LENORE NOLASCO Start: 09-21-2019 Blood count hemoglobin Matilda E Pool Work Phone: Start: 09-20-2019 PLACE INTERMITTENT PNEUMATIC COMPRESSION DEVICE LENORE NOLASCO Start: 09-20-2019 ADVANCE DIET TOLERATED (NURSING COMMUNICATION) LENORE NOLASCO Start: 09-20-2019 AMBULATE PATIENT LENORE NOLASCO Start: 09-20-2019 CATHETER REMOVAL LENORE NOLASCO Start: 09-20-2019 DIET GENERAL LENORE NOLASCO Start: 09-20-2019 FULL CODE LENORE NOLASCO Start: 09-20-2019 INITIATE OXYGEN THERAPY PROTOCOL LENORE NOLASCO Start: 09-20-2019 INTAKE AND OUTPUT LENORE NOLASCO Start: 09-20-2019 Level iv surg pathology gross&microscopic exam LENORE NOLASCO Start: 09-20-2019 NOTIFY PHYSICIAN (SPECIFY) LENORE LAKISHAGomez Start: 09-20-2019 STRAIGHT CATH LENORE NOLASCO Start: 09-20-2019 VITAL SIGNS LENORE NOLASCO Start: 09-20-2019 WOUND CARE LENORE NOLASCO Start: 09-20-2019 TRANSFER PATIENT LENORE NOLASCO Start: 09-20-2019 Antibody screen Lenore Nolasco Start: 09-20-2019 Level iv surg pathology gross&microscopic exam LENORE NOLASCO Start: 09-20-2019 Level iv surg pathology gross&microscopic exam Matilda Pierson Work Phone: Start: 09-20-2019 IP CONSULT TO SOCIAL WORK LENORE NOLASCO Start: 09-20-2019 PATIENT STATUS (DIRECT) LENORE NOLASCO Start: 09-20-2019 IP CONSULT TO SPIRITUAL SERVICES LENORE LAKISHAGomez Start: 09-20-2019 Blood count complete auto&auto difrntl wbc LENOREMAYA BANUELOSGomez Start: 09-20-2019 TYPE AND SCREEN LENORE BANUELOSGomez Start: 09-20-2019 Drug screen class list a LENORE CONSTANCE Start: 09-20-2019 Blood count complete auto&auto difrntl wbc Lenore Shadia Constance Work Phone: Start: 09-20-2019 Blood typing serologic abo Lenore Nolasco Work Phone: Start: 09-20-2019 Drug screen class list a Lenore Nolasco Work Phone: Start: 09-12-2019 Us preg uterus after 1st trimest 08/16 gestation LENORE NOLASCO Start: 09-12-2019 DISCHARGE PATIENT LENORE NOLASCO Start: 09-12-2019 MISCELLANEOUS NURSING CARE ORDER (SPECIFY) LENOREMAYA NOLASCO Start: 09-12-2019 biophysical profile non-stress testing LENORE NOLASCO Start: 09-12-2019 Us preg uterus after 1st trimest 08/16 gestation Matilda Pierson SALES DEPARTMENT SUPERVISOR - CNM Work Phone: Start: 09-12-2019 biophysical profile non-stress testing Matilda Pierson SALES DEPARTMENT SUPERVISOR - CNM Work Phone: Start: 09-12-2019 NURSING COMMUNICATION LENORE NOLASCO Start: 09-12-2019 nonstress test LENORE NOLASCO Start: 09-12-2019 VITAL SIGNS LENORE NOLASCO Start: 09-12-2019 MISCELLANEOUS NURSING CARE ORDER (SPECIFY) LENORE NOLASCO Start: 09-12-2019 PATIENT STATUS (DIRECT) LENORE NOLASCO Start: 09-12-2019 nonstress test Anjali nichols SALES DEPARTMENT SUPERVISOR - CNM Work Phone: Start: 09-11-2019 NURSING COMMUNICATION LENORE NOLASCO Start: 09-11-2019 Culture bacterial quanttative colony count urine LENORE NOLASCO Start: 09-11-2019 Urinalysis microscopic only LENORE NOLASCO Start: 09-11-2019 Urnls dip stick/tablet rgnt auto w/o microscopy LENORE NOLASCO Start: 09-11-2019 ASSESS HEART TONES LENORE NOLASCO Start: 09-11-2019 CONTRACTION -MONITORING LENORE NOLASCO Start: 09-11-2019 DIET CLEAR LIQUID LENORE NOLASCO Start: 09-11-2019 FULL CODE LENORE NOLASCO Start: 09-11-2019 Gluc bld gluc mntr dev cleared fda spec home use LENORE NOLASCO Start: 09-11-2019 MONITOR HEART TONES LENORE NOLASCO Start: 09-11-2019 NOTIFY PHYSICIAN (SPECIFY) LENORE NOLASCO Start: 09-11-2019 VITAL SIGNS LENORE NOLASCO Start: 09-11-2019 Urinalysis microscopic only Anjali Rain SALES DEPARTMENT SUPERVISOR - CNM Work Phone: Start: 09-11-2019 Urnls dip stick/tablet rgnt auto w/o microscopy Anjali Rain SALES DEPARTMENT SUPERVISOR - CNM Work Phone: Start: 09-08-2019 DISCHARGE PATIENT LENORE NOLASCO Start: 09-08-2019 VAGINAL EXAM LENORE NOLASCO Start: 09-08-2019 DIET GENERAL LENORE NOLASCO Start: 09-08-2019 MONITORING LENORE NOLASCO Start: 09-08-2019 CONTRACTION -MONITORING LENORE NOLASCO Start: 09-08-2019 MONITOR HEART TONES LENORE NOLASCO Start: 09-01-2019 Cul prsmptv pthgnc organism scrn w/colony estimj LENORE NOLASCO Start: 04-05-2019 PULSE OXIMETRY, CONTINUOUS LENORE NOLASCO Start: 04-05-2019 DISCHARGE PATIENT LENORE NOLASCO Start: 04-05-2019 AMBULATE PATIENT LENORE NOLASCO Start: 04-05-2019 FULL CODE LENORE NOLASCO Start: 04-05-2019 INITIATE OXYGEN THERAPY PROTOCOL LENORE NOLASCO Start: 04-05-2019 NOTIFY PHYSICIAN (SPECIFY) LENORE NOLASCO Start: 04-05-2019 PLACE INTERMITTENT PNEUMATIC COMPRESSION DEVICE LENORE NOLASCO Start: 04-05-2019 PULSE OXIMETRY, CONTINUOUS LENORE NOLASCO Start: 04-05-2019 VITAL SIGNS LENORE NOLASCO Start: 04-05-2019 TRANSFER PATIENT LENORE NOLASCO Start: 04-05-2019 ADVANCE DIET TOLERATED (NURSING COMMUNICATION) LENORE NOLASCO Start: 03-20-2019 Screen pap by william haddad md supv LENORE NOLASCO Start: 02-07-2019 C.TRACHOMATIS N.GONORRHOEAE DNA, URINE LENORE NOLASCO Start: 02-07-2019 Culture bacterial quanttative colony count urine LENORE NOLASCO Start: 02-07-2019 Antibody hiv-1&hiv-2 single result LENORE NOLASCO Start: 02-07-2019 Drug screen, qualitate/multi LENORE NOLASCO Start: 02-07-2019 Hepatitis c antibody LENORE NOLASCO Start: 02-07-2019 Obstetric panel LENORE NOLASCO Start: 02-07-2019 TYPE AND SCREEN LENORE BANUELOSGomez Plan of Treatment Date Care Activity Detail Author Start: 2040 Shingles Vaccine (1 of 2) Shingles Vaccine (1 of 2) [employer] Phone: Start: 08-07-2029 DTaP,Tdap and Td Vaccines (2 - Td or Tdap) DTaP,Tdap and Td Vaccines (2 - Td or Tdap) [facility] Start: 08-07-2029 DTaP/Tdap/Td vaccine (2 - Td) DTaP/Tdap/Td vaccine (2 - Td) [facility] Work Phone: Start: 03-09-2026 Adult BMI Screening Adult BMI Screen ing [facility] Start: 03-09-2026 Depression Screening Depression Scre ening [facility] Start: 03-09-2026 Tobacco Screening Tobacco Screening [facility] Start: 01-18-2026 Adult BMI Screening Adult BMI Screen ing [facility] Start: 01-18-2026 Depression Screening Depression Scre ening [facility] Start: 12-21-2025 Screening for malign ant neoplasm of cervix Pap Smear [facility] Start: 11-10-2025 Adult BMI Screening Adult BMI Screen ing [facility] Start: 11-10-2025 Depression Screening Depression Scre ening [facility] Start: 11-10-2025 Tobacco Screening Tobacco Screening [facility] Start: 10-13-2025 Adult BMI Screening Adult BMI Screen ing [facility] Start: 10-13-2025 Depression Screening Depression Scre ening [facility] Start: 10-13-2025 Tobacco Screening Tobacco Screening [facility] Start: 09-08-2025 Adult BMI Screening Adult BMI Screen ing [facility] Start: 09-08-2025 Depression Screening Depression Scre ening [facility] Start: 09-08-2025 Tobacco Screening Tobacco Screening [facility] Start: 08-25-2025 Adult BMI Screening Adult BMI Screen ing [facility] Start: 08-25-2025 Depression Screening Depression Scre ening [facility] Start: 07-28-2025 Tobacco Screening Tobacco Screening [facility] Start: 06-22-2025 Adult BMI Screening Adult BMI Screen ing [facility] Start: 06-22-2025 Depression Screening Depression Scre ening [facility] Start: 05-04-2025 End: 05-04-2025 Patient encounter procedure 05/04/2025 10:00 AM EDT Office Visit [facility] [address] [place] [address] Price Samson, SALES DEPARTMENT SUPERVISOR-[employer]IC [employer]RE [employer]RAWER [address] [place] [address] [facility] Start: 03-09-2025 End: 03-09-2026 Lipid 1996 panel - Serum or Plasma [facility] Work Phone: Comment on above: Expected: 03/09/2025 (Approximate), Expires: 03/09/2026 Start: 03-09-2025 End: 03-09-2025 Patient encounter procedure 03/09/2025 10:00 AM EDT Office Visit [facility] [address] [place] [address] Price Samson, SALES DEPARTMENT SUPERVISOR-[employer]IC [employer]RE DRAWER [address] [place] [address] [facility] Start: 01-24-2025 Adult BMI Screening Adult BMI Screen ing [facility] Start: 01-24-2025 Tobacco Screening Tobacco Screening [facility] Start: 01-05-2025 End: 01-05-2025 Patient encounter procedure 01/05/2025 9:20 AM EDT Office Visit [facility] [address] [place] [address] Price Samson, SALES DEPARTMENT SUPERVISOR-[employer]RAWER [address] [place] [address] [facility] Start: 01-03-2025 Adult BMI Screening Adult BMI Screen ing [facility] Start: 01-03-2025 Tobacco Screening Tobacco Screening [facility] Start: 11-27-2024 End: 11-27-2024 Patient encounter procedure 11/27/2024 9:30 AM EDT Appointment [facility] - [facility] Function [address] [place] [address] [facility] Start: 11-10-2024 End: 11-10-2024 Patient encounter procedure 11/10/2024 10:40 AM EDT Office Visit [facility] Family [facility] [address] [place] [address] Price Samson, SALES DEPARTMENT SUPERVISOR-[employer]IC [employer] DRAWER [address] [place] [address] [facility] Start: 10-13-2024 End: 10-13-2024 Patient encounter procedure 10/13/2024 8:40 AM EST [facility] [address] [place] [address] Price Samson, SALES DEPARTMENT SUPERVISOR-[employer]RAWER [address] [place] [address] [facility] Start: 08-04-2024 End: 08-04-2024 Patient encounter procedure 08/04/2024 9:20 AM EST Office Visit [facility] [address] [facility] [address] [facility] [place] [address] Mark Canedlaria MD [address] [facility] [address] [place] [address] Arrived [facility] Comment on above: Arrived Start: 07-28-2024 End: 07-28-2024 Patient encounter procedure 07/28/2024 10:40 AM EST Office Visit [facility] [address] [place] [address] Price Samson, SALES DEPARTMENT SUPERVISOR-[employer]RAWER [address] [place] [address] [facility] Internal [facility] Start: 05-14-2024 Adult BMI Screening Adult BMI Screen ing [facility] Start: 05-14-2024 Depression Screening Depression Scre ening [facility] Start: 05-14-2024 Tobacco Screening Tobacco Screening [facility] Start: 02-21-2024 End: 02-21-2024 Patient encounter procedure 02/21/2024 1:00 PM EDT Office Visit [facility] [place] [address] [place] [id number] Tamara Brady MD [address] [address] [facility] Start: 01-25-2024 End: 01-25-2024 Patient encounter procedure 01/25/2024 1:15 PM EDT Procedure visit [facility] [address] [id number] Tamara Brady MD [address] [place] [address] [facility] Start: 12-22-2023 Adult BMI Follow Up Plan Adult BMI F ollow Up Plan [facility] Start: 03-20-2022 Cervical cancer screen Cervical canc er screen [place], [place] Start: 09-28-2019 End: 09-28-2019 Visit 09/28/2019 Visit Obstetrics and Gynecology Lenore Nolasco MD [address] [place], [place] [id number] [facility] Start: 09-14-2019 End: 09-14-2019 Patient encounter procedure 09/14/2019 Routine Obstetrics and Gynecology Matilda Pierson, SALES DEPARTMENT SUPERVISOR - CNM [address] [place] [address] [facility] Start: 09-14-2019 End: 09-14-2019 Professional / ancillary services management 09/14/2019 Ancillary Procedure Obstetrics and Gynecology [facility] Start: 09-08-2019 Subsequent hospital visit by physician 09/08/2019 Hospital Encounter IP Unit [facility] LD Start: 09-07-2019 End: 09-07-2019 Patient encounter procedure 09/07/2019 Routine Obstetrics and Gynecology Lenore Nolasco MD [address] [address] [facility] Start: 09-07-2019 End: 09-07-2019 Professional / ancillary services management 09/07/2019 Ancillary Procedure Obstetrics and Gynecology [facility] Start: 04-19-2019 End: 04-19-2019 Routine 04/19/2019 Routine Obstetrics and Gynecology Lenore Nolasco MD [address] [place] [address] [facility] [employer] Start: 04-16-2019 Influenza vaccination Flu vaccine (# 1) [place], [place] Start: 2009 DTaP/Tdap/Td vaccine (1 - Tdap) DTaP/Tdap/Td vaccine (1 - Tdap) [place], [place] Start: 2008 Adult BMI Follow Up Plan Adult BMI F ollow Up Plan [facility] Start: 10-22-2003 Varicella Vaccine (1 of 2 - 13+ 2-dose series) Varicella Vaccine (1 of 2 - 13+ 2-dose series) [place], [place] Start: 10-22-1991 Varicella vaccine (1 of 2 - 2-dose childhood series) Varicella vaccine (1 of 2 - 2-dose childhood series) [facility]: End: 09-11-2019 Bacteria identified in Urine by Culture Urine culture Microbiology Routine One Time for 1 Occurrences starting 09/11/2019 until 09/11/2019 [employer] Phone: Comment on above: One Time for 1 Occur rences starting 09/11/2019 until 09/11/2019 Bacteria identified in Urine by Culture Urine culture Microbiology [employer] Label Print 09/11/2019 8:45 PM EST [facility] Phone: End: 01-24-2025 Chlamydia/GC by PCR Mahendra Swab Chlamydia/GC by PCR Mahendra Swab Microbiology Routine Screening for STD (sexually transmitted disease) 1 Occurrences starting 01/25/2024 until 01/24/2025 [employer] Phone: Comment on above: 1 Occurrences starti ng 01/25/2024 until 01/24/2025 End: 03-09-2026 Comprehensive metabolic 2000 panel - Serum or Plasma Comprehensive metabolic panel Lab Routine Wellness examination 1 Occurrences starting 03/09/2025 until 03/09/2026 [employer] Comment on above: 1 Occurrences starti ng 03/09/2025 until 03/09/2026 Comprehensive metabo lic 2000 panel - Serum or Plasma Comprehensive metabolic panel Lab Routine Wellness examination 03/09/2025 10:44 AM EDT [employer] End: 11-06-2019 Cytopathology procedure, preparation of smear, genital source PAP SMEAR Lab Routine Routine follow-up 1 Occurrences starting 11/06/2019 until 11/06/2019 [employer] Comment on above: 1 Occurrences starti ng 11/06/2019 until 11/06/2019 nonstress test nonst ress test OB Routine Daily until discontinued starting 09/12/2019, 1 completed [place] Work Phone: Comment on above: Daily until disconti nued starting 09/12/2019, 1 completed Initiate Oxygen Ther apy Protocol [employer] Comment on above: Daily until disconti nued starting 09/20/2019 Daily until disconti nued starting 04/05/2019 Nonrebreather mask oxygen Nonrebreather mask oxygen Respiratory Care Routine As directed - RT (PRN) until discontinued starting 09/11/2019 [employer] Phone: Comment on above: As directed - RT (NH N) until discontinued starting 09/11/2019 End: 11-10-2025 Pulmonary function test Complete PFT w/ BD (Spirometry (Flow Volume Loop) pre/post short acting bronchodilator w/ DLCO (diffusion study) and Lung Volume) Pulmonary function test Complete PFT w/ BD (Spirometry (Flow Volume Loop) pre/post short acting bronchodilator w/ DLCO (diffusion study) and Lung Volume) PFT Routine Mild intermittent reactive airway disease without complication 1 Occurrences starting 11/10/2024 until 11/10/2025 [facility] Phone: Comment on above: 1 Occurrences starti ng 11/10/2024 until 11/10/2025 Pulse oximetry, continuous Pulse oximetry, continuous Respiratory Care Routine Every 4hr until discontinued starting 04/05/2019 [place], [place] Comment on above: Every 4hr until disc ontinued starting 04/05/2019 End: 09-01-2019 Strep B Screen, Vaginal / Rectal Strep B Screen, Vaginal / Rectal Microbiology Routine 36 weeks gestation of 1 Occurrences starting 09/01/2019 until 09/01/2019 [employer] Phone: Comment on above: 1 Occurrences starti ng 09/01/2019 until 09/01/2019 Strep B Screen, Vagi nal / Rectal Strep B Screen, Vaginal / Rectal Microbiology Routine 36 weeks gestation of 09/01/2019 12:47 PM EST [employer] Phone: End: 09-20-2019 Surgical Pathology Surgical Pathology Lab Routine One Time for 1 Occurrences starting 09/20/2019 until 09/20/2019 [employer] Phone: Comment on above: One Time for 1 Occur rences starting 09/20/2019 until 09/20/2019 End: 09-11-2019 SVE SVE Point of Care Testing Routine One Time for 1 Occurrences starting 09/11/2019 until 09/11/2019 [employer] Phone: Comment on above: One Time for 1 Occur rences starting 09/11/2019 until 09/11/2019 [facility] Immunizations Immunization Date Immunization Notes Care Provider Fa kennaty 09-20-2019 diphtheria, tetanus toxoids and acellular pertussis vaccine, unspecified formulation [employer] Phone: 09-20-2019 measles, mumps and rubella virus vaccine [employer] Phone: 08-07-2019 tetanus toxoid, redu rashida diphtheria toxoid, and acellular pertussis vaccine, adsorbed Marylin Morrow SALES DEPARTMENT SUPERVISOR - [employer] Work Phone: [facility] Work Phone: 07-14-2019 influenza, injectabl e, quadrivalent, preservative free Marylin Morrow SALES DEPARTMENT SUPERVISOR - [facility] Work Phone: [facility] Work Phone: Payers Date Payer Category Payer Self-pay 2022 Private Health Insurance [facility] PLAN [id number] 2022-Present [phone] [address] [place] [address] [id number] [id number] 2022 [facility] [id number]. [id number] 2022 [facility] Managed Care - Other [facility] [id number]. 2.7.9.945485.508.315 2022 Unknown [employer]/PP[place]/TRUST [id number] 2022-Present [phone] [address] [place] [address] 1.2.840.478501.1.13.424. 2.7.3.940890.315 2022 Blue [employer] Blue Shield [id number] 2.16.840.1.240802.19 2018 Unknown [id number] 1.2.840.952852.1.13.239. 2.7.3.238059.315 2018 Unknown [id number] 1990 Unknown [id number] 2.16.840.1.203174.3.579. 2.593 1990 Unknown [id number] 2.16.840.1.813399.3.579. 2.593 1990 Unknown [id number] 2.16.840.1.691767.3.579. 2.173 1990 Unknown [id number] 2.16.840.1.902745.3.579. 2.173 1990 Unknown [id number] 2.16.840.1.808830.3.579. 2.173 1990 Unknown [id number] 2.16.840.1.412920.3.579. 2.173 1990 Unknown [id number] 2.16.840.1.986932.3.579. 2.173 1990 Unknown [id number] 2.16.840.1.624449.3.579. 2.173 1990 Unknown [id number] 2.16.840.1.422592.3.579. 2.173 1990 Unknown [id number] 2.16.840.1.570059.3.579. 2.173 1990 Unknown [id number] 2.16.840.1.450284.3.579. 2.1286 1990 Unknown [id number] 2.16.840.1.374729.3.579. 2.1259 1990 Unknown [id number] 2.16.840.1.168244.3.579. 2.1286 1990 Unknown [id number] 2.16.840.1.357355.3.579. 2.1286 1990 Unknown [id number] 2.16.840.1.883266.3.579. 2.6 1990 Unknown [id number] 2.16.840.1.971147.3.579. 2.1286 1990 Unknown [id number] 2.16.840.1.619673.3.579. 2.6 1990 Unknown [id number] 2.16.840.1.383661.3.579. 2.1286 1990 Unknown [id number] 2.16.840.1.645194.3.579. 2.6 1990 Unknown [id number] 2.16.840.1.137205.3.579. 2.1286 1990 Unknown [id number] 2.16.840.1.028702.3.579. 2.1286 1990 Unknown [id number] 2.16.840.1.093774.3.579. 2.1286 1990 Unknown [id number] 2.16.840.1.774514.3.579. 2.1286 1990 Unknown [id number] 2.16.840.1.823381.3.579. 2.1286 1959 Unknown [id number] Medicaid [place] [id number] 3 [id number] Unknown [id number] 2.16.840.1.489008.3.579. 2.531 Social History Date Type Detail Facility Start: 09-20-2019 End: 03-21-2025 Tobacco smoking status [email or web address] Never smoker [facility] Start: 09-20-2019 End: 08-04-2024 Alcohol intake Ex-drinker (finding) [employer] Phone: Start: 1990 Sex Assigned At Not on file M [place], [place] Start: 04-05-2019 End: 09-26-2020 Alcohol intake Not Currently [facility] Start: 01-04-2019 [place], [place] Start: 10-22-2022 End: 08-04-2024 Tobacco use and exposure Smokeless tobacco non-user [facility] Start: 06-22-2024 End: 03-09-2025 Alcoholic beverage intake Current drinker of alcohol (finding) [facility] Start: 09-26-2020 End: 01-25-2024 History of Social function [facility] How hard is it for y ou to pay for the very basics like food, housing, medical care, and heating Not very hard [facility] Adolescent depressio n screening assessment 12 [facility] Start: 11-02-2018 Alcohol Comment rarely [facility] Start: 11-01-2018 Sex Female (finding) [facility] Start: 08-04-2024 Alcohol Comment 1 or 2 i reall y dont drink that often [facility] Tobacco smoking stat [facility] Tobacco smoking consumption unknown [facility] How hard is it for y ou to pay for the very basics like food, housing, medical care, and heating Somewhat hard [facility] Start: 1990 Sex Assigned At Female F [facility] Clinical Notes 09-08-2019 to 03-09-2025 JACINTO Alas - 03/09/2025 10:00 AM JACINTO Delgado - 01/18/2025 9:40 AM JACINTO Delgado - 11/10/2024 10:40 AM Trung Kerri Samson, SALES DEPARTMENT SUPERVISOR-[employer] - 10/13/2024 8:40 AM EST Note Date & Type Note Facility 03-09-2025 History of Present illness Narrative [address] [place] [address] Patient: Xuan Jackson Date of : 1990 Encounter Date: 03/09/2025 History of Present Illness: The patient is a 34 y.o. female, an established patient, and is here for Chief Complaint Patient presents with wellness . HPI Patient is here for wellness exam but also to recheck her breathing/asthma on new Advair start initiated in January and recheck of her Celexa for her depression anxiety that was started in January per [employer] testing. Patient states her breathing has improved greatly and is using her rescue inhaler less than 3 times per week. States her anxiety and depression are about 70% better but she is still having occasional breakthrough symptom one or less per week of her anxiety. She is having no major adverse side effects to the Celexa. Patient is complaining of one-week of daily headaches in her occipital area that radiate to her temporal area. She has tried Excedrin but that did not seem to work well. She has been cutting down on her caffeine more lately in trying to eat healthy and exercise more and is down 5 lb. Problem List Items Addressed This Visit Respiratory Reactive airway disease Other Moderate episode of recurrent major depressive disorder ([facility]) Relevant Medications citalopram (CeleXA) 20 mg tablet Anxiety Other Visit Diagnoses Wellness examination - Primary Relevant Orders Lipid profile Comprehensive metabolic panel Tension headache Relevant Medications naproxen (NAPROSYN) 500 mg tablet Class 3 severe obesity due to excess calories without serious comorbidity with body mass index (BMI) of 40.0 to 44.9 in adult ([facility]) Atopic dermatitis, unspecified type Relevant Medications citalopram (CeleXA) 20 mg tablet Bilateral hearing loss, unspecified hearing loss type Relevant Orders Ambulatory referral to ENT Elevated blood pressure reading Past Medical, Family, and Social History Update: The following portions of the patient's history were reviewed and updated as appropriate: allergies, current medications, past family history, past medical history, past social history, past surgical history and problem list. Past Medical History: Diagnosis Date Anxiety 10/22/2022 Depression 10/22/2022 Visual impairment Past Surgical History: Procedure Laterality Date CARPAL TUNNEL RELEASE Right 2020 SECTION 09/2019 HYSTEROSCOPY DILATION ABLATION ENDOMETRIAL NOVASURE & CPT 78465 N/A 02/01/2023 Performed by Tamara Brady MD at [facility] LAPAROSCOPIC TUBAL LIGATION Bilateral 11/2019 WISDOM TOOTH EXTRACTION Current Outpatient Medications Medication Sig Dispense Refill albuterol (PROVENTIL HFA;VENTOLIN HFA) 90 mcg/actuation inhaler Inhale 2 puffs every 6 (six) hours as needed for wheezing or shortness of breath. 18 g 1 fluticasone propion-salmeteroL (ADVAIR DISKUS) 250-50 mcg/dose DISKUS Inhale 1 puff in the morning and 1 puff before bedtime. 60 each 1 hydrocortisone (HYTONE) 2.5 % cream Apply 1 Application topically in the morning and 1 Application before bedtime. FOR HANDS. 30 g 1 LORazepam (ATIVAN) 0.5 mg tablet Take 1 tablet (0.5 mg total) by mouth 2 (two) times a day as needed for anxiety. 10 tablet 0 triamcinolone (KENALOG) 0.1 % cream Apply 1 Application topically in the morning and 1 Application before bedtime. Limbs, trunk, ankles wrists. 80 g 1 citalopram (CeleXA) 20 mg tablet Take 1 tablet (20 mg total) by mouth in the morning. 90 tablet 1 naproxen (NAPROSYN) 500 mg tablet Take 1 tablet (500 mg total) by mouth in the morning and 1 tablet (500 mg total) in the evening. Take with meals. 60 tablet 1 No current facility-administered medications for this visit. (All medications reviewed and updated by provider since last office visit or hospitalization) Allergies: Cat dander and Wellbutrin [bupropion hcl] Tobacco History: Social History Tobacco Use Smoking Status Never Smokeless Tobacco Never (If patient a smoker, smoking cessation counseling offered) Social History: Social History Substance and Sexual Activity Alcohol Use Yes Comment: rarely Review of Systems: Review of Systems Constitutional: Negative. Respiratory: Negative. Cardiovascular: Negative. Gastrointestinal: Negative. Musculoskeletal: Positive for myalgias, neck pain and neck stiffness. Neurological: Positive for headaches. Psychiatric/Behavioral: Negative for agitation, decreased concentration, dysphoric mood, self-injury, sleep disturbance and suicidal ideas. The patient is nervous/anxious. Physical Exam: BP (!) 138/98 (BP Site: Right Arm, BP Postition: Sitting, BP CUFF SIZE: M (9-13 inches)) Pulse 77 Temp 36.5 C (97.7 F) (Tympanic) Resp 18 Ht 149.9 cm (4' 11.02 ) Wt 97.7 kg (215 lb 6.4 oz) SpO2 97% BMI 43.48 kg/m Physical Exam Vitals reviewed. Constitutional: Appearance: Normal appearance. She is obese. HENT: Head: Normocephalic and atraumatic. Right Ear: Tympanic membrane, ear canal and external ear normal. Left Ear: Tympanic membrane, ear canal and external ear normal. Nose: Nose normal. Mouth/Throat: Mouth: Mucous membranes are moist. Eyes: General: No scleral icterus. Pupils: Pupils are equal, round, and reactive to light. Neck: Thyroid: No thyroid mass, thyromegaly or thyroid tenderness. Cardiovascular: Rate and Rhythm: Normal rate and regular rhythm. Heart sounds: Normal heart sounds. Pulmonary: Effort: Pulmonary effort is normal. Breath sounds: Normal breath sounds. Abdominal: General: Bowel sounds are normal. Palpations: Abdomen is soft. Tenderness: There is no abdominal tenderness. Musculoskeletal: Right lower leg: No edema. Left lower leg: No edema. Lymphadenopathy: Cervical: No cervical adenopathy. Skin: General: Skin is warm. Capillary Refill: Capillary refill takes less than 2 seconds. Neurological: General: No focal deficit present. Mental Status: She is alert and oriented to person, place, and time. Psychiatric: Mood and Affect: Mood normal. Behavior: Behavior normal. Assessment and Plan: Xuan was seen today for wellness. Diagnoses and all orders for this visit: Wellness examination - Lipid profile; Future - Comprehensive metabolic panel; Future - Comprehensive metabolic panel - Lipid profile Moderate episode of recurrent major depressive disorder ([facility]) Anxiety Tension headache Class 3 severe obesity due to excess calories without serious comorbidity with body mass index (BMI) of 40.0 to 44.9 in adult ([facility]) Atopic dermatitis, unspecified type Bilateral hearing loss, unspecified hearing loss type - Ambulatory referral to ENT; Future Mild intermittent reactive airway disease without complication Elevated blood pressure reading Other orders - naproxen (NAPROSYN) 500 mg tablet; Take 1 tablet (500 mg total) by mouth in the morning and 1 tablet (500 mg total) in the evening. Take with meals. - citalopram (CeleXA) 20 mg tablet; Take 1 tablet (20 mg total) by mouth in the morning. Follow-up: Health maintenance and immunizations were discussed and recommendations were made. Depression screening was score of 1. Her depression anxiety is much better with the Celexa but she would like to go up to 20 mg dose. Patient noted to have elevated BMI and the following intervention(s) were applied: encouragement to exercise She will try the naproxen with food as needed twice a day for her tension headaches. We will consider adding muscle relaxant at night if this is not effective. Asthma is under much better control with the Advair. She may use this during her bad allergy seasons. It was advised that she get the flu shot in late May. Her atopic dermatitis has improved greatly with the triamcinolone and hydrocortisone and she is using moisturizing lotions at night. Patient would like a referral to ENT for hearing testing and consultation. Referral to [facility] and [facility] was made. Patient's blood pressure was higher than goal today which may be from caffeine withdrawal. She was advised to take her blood pressure 2 to 3 times per week and record for next appointment in 8 weeks. She is making dietary changes and losing weight which will help with her blood pressure as well. She should slowly with draw all caffeine intake. Follow up in 8 weeks to recheck her blood pressure. JACINTO ALAS APRN-CNP 03/09/25 1109 documented in this encounter [facility] [employer] 01-18-2025 History of Present illness [place] [address] Patient: Xuan Jackson Date of : 1990 Encounter Date: 01/18/2025 History of Present Illness: The patient is a 34 y.o. female, an established patient, and is here for Chief Complaint Patient presents with Follow-up Lung screening results-[facility] . HPI Patient is here to discuss results of her pulmonary function tests. Patient is having asthma symptoms (chest tightness shortness a breath) on a daily basis and using her rescue inhaler almost everyday of the week. She notices she needs the rescue inhaler especially when she is walking up a hill near her house or walking with her during the mid part of the day. She feels her worst allergy seasons are spring or start in October until mid March then restart in April in sometimes during really cold days. Patient did take antihistamine/decongestant at 1:00 p.m. yesterday. Patient has stopped her Trintellix about 1 month ago. She started to have decreased concentration, racing heartbeat or palpitations at times and she started to get her hives back again when she felt anxious. She feels better since stopping the Trintellix but now her irritation and agitation has increased. Patient is also wondering how she can lose weight. She has started to decrease her portion sizes and make healthier food choices. Unfortunately her asthma is limiting her exercise at this time. Problem List Items Addressed This Visit Other Moderate episode of recurrent major depressive disorder ([facility]) Relevant Medications citalopram (CeleXA) 10 mg tablet Anxiety Other Visit Diagnoses Moderate persistent asthma, unspecified whether complicated - Primary Relevant Medications fluticasone propion-salmeteroL (ADVAIR DISKUS) 250-50 mcg/dose DISKUS Seasonal allergic rhinitis due to pollen Class 3 severe obesity due to excess calories with serious comorbidity and body mass index (BMI) of 40.0 to 44.9 in adult ([facility]) Past Medical, Family, and Social History Update: The following portions of the patient's history were reviewed and updated as appropriate: allergies, current medications, past family history, past medical history, past social history, past surgical history and problem list. Past Medical History: Diagnosis Date Anxiety 10/22/2022 Depression 10/22/2022 Visual impairment Past Surgical History: Procedure Laterality Date CARPAL TUNNEL RELEASE Right 2020 SECTION 09/2019 HYSTEROSCOPY DILATION ABLATION ENDOMETRIAL NOVASURE & CPT 15277 N/A 02/01/2023 Performed by Tamara Brady MD at [facility] LAPAROSCOPIC TUBAL LIGATION Bilateral 11/2019 WISDOM TOOTH EXTRACTION Current Outpatient Medications Medication Sig Dispense Refill albuterol (PROVENTIL HFA;VENTOLIN HFA) 90 mcg/actuation inhaler Inhale 2 puffs every 6 (six) hours as needed for wheezing or shortness of breath. 18 g 1 hydrocortisone (HYTONE) 2.5 % cream Apply 1 Application topically in the morning and 1 Application before bedtime. FOR HANDS. 30 g 1 loratadine (CLARITIN) 10 mg tablet Take 1 tablet (10 mg total) by mouth in the morning. 14 tablet 1 LORazepam (ATIVAN) 0.5 mg tablet Take 1 tablet (0.5 mg total) by mouth 2 (two) times a day as needed for anxiety. 10 tablet 0 triamcinolone (KENALOG) 0.1 % cream Apply 1 Application topically in the morning and 1 Application before bedtime. Limbs, trunk, ankles wrists. 80 g 1 citalopram (CeleXA) 10 mg tablet Take 1 tablet (10 mg total) by mouth in the morning. 30 tablet 1 fluticasone propion-salmeteroL (ADVAIR DISKUS) 250-50 mcg/dose DISKUS Inhale 1 puff in the morning and 1 puff before bedtime. 60 each 1 No current facility-administered medications for this visit. (All medications reviewed and updated by provider since last office visit or hospitalization) Allergies: Cat dander and Wellbutrin [bupropion hcl] Tobacco History: Social History Tobacco Use Smoking Status Never Smokeless Tobacco Never (If patient a smoker, smoking cessation counseling offered) Social History: Social History Substance and Sexual Activity Alcohol Use Yes Comment: rarely Review of Systems: Review of Systems Constitutional: Positive for activity change. Negative for appetite change, fatigue and unexpected weight change. HENT: Positive for congestion, postnasal drip and rhinorrhea. Respiratory: Positive for chest tightness, shortness of breath and wheezing. Cardiovascular: Positive for palpitations. Negative for chest pain and leg swelling. Gastrointestinal: Negative. Skin: Positive for color change (skin darkens/lenz easily in sun). Allergic/Immunologic: Positive for environmental allergies. Negative for immunocompromised state. Neurological: Negative. Psychiatric/Behavioral: Positive for agitation, decreased concentration and sleep disturbance. Negative for dysphoric mood. The patient is nervous/anxious. Physical Exam: BP 140/88 (BP Site: Left Arm, BP Postition: Sitting, BP CUFF SIZE: L (13-17 inches)) Pulse 103 Temp 36.6 C (97.9 F) (Oral) Resp 20 Ht 149.9 cm (4' 11.02 ) Wt 100 kg (220 lb 6.4 oz) SpO2 95% BMI 44.49 kg/m Physical Exam Vitals reviewed. Constitutional: Appearance: Normal appearance. She is obese. HENT: Head: Normocephalic and atraumatic. Right Ear: Tympanic membrane, ear canal and external ear normal. Left Ear: Tympanic membrane, ear canal and external ear normal. Nose: Congestion and rhinorrhea present. Mouth/Throat: Mouth: Mucous membranes are moist. Eyes: Pupils: Pupils are equal, round, and reactive to light. Cardiovascular: Rate and Rhythm: Regular rhythm. Tachycardia present. Heart sounds: Normal heart sounds. Pulmonary: Effort: Pulmonary effort is normal. Breath sounds: Normal breath sounds. Abdominal: General: Bowel sounds are normal. Palpations: Abdomen is soft. Tenderness: There is no abdominal tenderness. Musculoskeletal: Right lower leg: No edema. Left lower leg: No edema. Lymphadenopathy: Cervical: No cervical adenopathy. Skin: General: Skin is warm. Capillary Refill: Capillary refill takes less than 2 seconds. Neurological: General: No focal deficit present. Mental Status: She is alert and oriented to person, place, and time. Psychiatric: Mood and Affect: Mood normal. Behavior: Behavior normal. Assessment and Plan: Xuan was seen today for follow-up. Diagnoses and all orders for this visit: Moderate persistent asthma, unspecified whether complicated Anxiety Moderate episode of recurrent major depressive disorder ([facility]) Seasonal allergic rhinitis due to pollen Class 3 severe obesity due to excess calories with serious comorbidity and body mass index (BMI) of 40.0 to 44.9 in adult ([facility]) Other orders - fluticasone propion-salmeteroL (ADVAIR DISKUS) 250-50 mcg/dose DISKUS; Inhale 1 puff in the morning and 1 puff before bedtime. - citalopram (CeleXA) 10 mg tablet; Take 1 tablet (10 mg total) by mouth in the morning. Follow-up: Patient's pulmonary function test shows peripheral airway obstruction with some evidence of air trapping and responsiveness to bronchodilators, consistent with asthma. Patient was started on combination ics/Laba inhaler, Advair and instructed on use. She should rinse mouth or brush her teeth after using morning and evening. Potential side effects and mechanism of action were discussed with patient. Patient may continue to use her rescue inhaler before exercise for the 1st month then try to wean off use as she is able. She should still continue her antihistamine but stop the decongestant as this may be causing palpitations and is likely the cause of her increased heart rate and blood pressure this morning. She should continue the use of Flonase as long as it is not irritating her nasal passages. After review of her GeneSight testing, patient and provider decided on starting Celexa. Patient did very well with Lexapro in the past except for she says it stopped being as effective as when she started . Side effects and mechanism of action of the medication were reviewed and she may increase dosing after 1-2 weeks. She will schedule a follow-up appointment as needed if this is not effective. Tips for weight loss were discussed with patient. It was recommended the patient get 90 minutes of exercise and per day and try to get this during the 1st part of the day when her asthma symptoms are better controlled. She should work her way up to moderate were intense exercise over the next 6 weeks. She should continue to limit her portion sizes and make healthier food choices. She would not be a good candidate for a stimulant for weight loss as her heart rate and blood pressure are slightly elevated today and she is having intermittent palpitations with her anxiety and decongestant. Her insurance does not cover G LP 1 inhibitor. Patient should follow-up of her depression symptoms are not well-controlled or when she is due for a wellness and to review her asthma symptoms. JACINTO ALAS APRN-CNP 01/18/25 1044 [facility] History of Present illness Narrative [place] [address] Patient: Xuan Jackson Date of : 1990 Encounter Date: 11/10/2024 History of Present Illness: The patient is a 34 y.o. female, an established patient, and is here for Chief Complaint Patient presents with Depression Feeling ok. Cough for 1 week-green to clear . HPI Patient is here to recheck her depression symptoms. She has had a 50% improvement in her moods on the 10 mg of Trintellix. At her appointment 1 month ago, patient was complaining of sleep issues but she switched her Trintellix dosing to nighttime and her sleep issues have greatly improved. She does get occasional nausea immediately after taking the Trintellix but she says it is nothing she can not deal with . She is not currently in counseling but she is using a priyanka on her phone that helps with her affirmations and emotional regulation. Patient is also complaining of being winded and wheezing when she exercises. Spring is her bad allergy season and she is taking her Claritin and her mother has asthma. She borrowed her mother's inhaler, albuterol and she feels her breathing improved and she was able to exercise more when she took the albuterol. She does note as she has triggers such as cleaning out her daughter's durable cage or being around a garo house when moving someone. She would like to exercise to help her lose weight but unfortunately she becomes very winded when she tries to exercise. Problem List Items Addressed This Visit Other Moderate episode of recurrent major depressive disorder ([facility]) - Primary Anxiety Other Visit Diagnoses Mild intermittent reactive airway disease without complication Relevant Medications albuterol (PROVENTIL HFA;VENTOLIN HFA) 90 mcg/actuation inhaler Other Relevant Orders Pulmonary function test Complete PFT w/ BD (Spirometry (Flow Volume Loop) pre/post short acting bronchodilator w/ DLCO (diffusion study) and Lung Volume) Past Medical, Family, and Social History Update: The following portions of the patient's history were reviewed and updated as appropriate: allergies, current medications, past family history, past medical history, past social history, past surgical history and problem list. Past Medical History: Diagnosis Date Anxiety 10/22/2022 Depression 10/22/2022 Visual impairment Past Surgical History: Procedure Laterality Date CARPAL TUNNEL RELEASE Right 2020 SECTION 09/2019 HYSTEROSCOPY DILATION ABLATION ENDOMETRIAL NOVASURE & CPT 32674 N/A 02/01/2023 Performed by Tamara Brady MD at [facility] LAPAROSCOPIC TUBAL LIGATION Bilateral 11/2019 WISDOM TOOTH EXTRACTION Current Outpatient Medications Medication Sig Dispense Refill hydrocortisone (HYTONE) 2.5 % cream Apply 1 Application topically in the morning and 1 Application before bedtime. FOR HANDS. 30 g 1 ibuprofen (MOTRIN) 800 mg tablet Take 1 tablet (800 mg total) by mouth every 8 (eight) hours as needed for pain. 30 tablet 0 loratadine (CLARITIN) 10 mg tablet Take 1 tablet (10 mg total) by mouth in the morning. 14 tablet 1 LORazepam (ATIVAN) 0.5 mg tablet Take 1 tablet (0.5 mg total) by mouth 2 (two) times a day as needed for anxiety. 10 tablet 0 triamcinolone (KENALOG) 0.1 % cream Apply 1 Application topically in the morning and 1 Application before bedtime. Limbs, trunk, ankles wrists. 80 g 1 vortioxetine (TRINTELLIX) 10 mg tablet Take 1 tablet (10 mg total) by mouth in the morning. 30 tablet 1 albuterol (PROVENTIL HFA;VENTOLIN HFA) 90 mcg/actuation inhaler Inhale 2 puffs every 6 (six) hours as needed for wheezing or shortness of breath. 18 g 1 No current facility-administered medications for this visit. (All medications reviewed and updated by provider since last office visit or hospitalization) Allergies: Cat dander and Wellbutrin [bupropion hcl] Tobacco History: Social History Tobacco Use Smoking Status Never Smokeless Tobacco Never (If patient a smoker, smoking cessation counseling offered) Social History: Social History Substance and Sexual Activity Alcohol Use Yes Comment: rarely Review of Systems: Review of Systems Constitutional: Positive for activity change. Negative for appetite change, fatigue and unexpected weight change. HENT: Positive for congestion, postnasal drip and rhinorrhea. Respiratory: Positive for chest tightness, shortness of breath and wheezing. Cardiovascular: Negative. Neurological: Negative. Psychiatric/Behavioral: Negative. Negative for dysphoric mood and sleep disturbance. The patient is not nervous/anxious. Physical Exam: BP 128/82 (BP Site: Left Arm, BP Postition: Sitting, BP CUFF SIZE: M (9-13 inches)) Pulse 97 Temp 36.4 C (97.6 F) (Oral) Resp 20 Ht 149.9 cm (4' 11.02 ) Wt 98.9 kg (218 lb 1.6 oz) SpO2 97% BMI 44.03 kg/m Physical Exam Vitals reviewed. Constitutional: Appearance: Normal appearance. She is obese. HENT: Head: Normocephalic and atraumatic. Right Ear: Tympanic membrane, ear canal and external ear normal. Left Ear: Tympanic membrane, ear canal and external ear normal. Nose: Nose normal. Mouth/Throat: Mouth: Mucous membranes are moist. Eyes: Pupils: Pupils are equal, round, and reactive to light. Cardiovascular: Rate and Rhythm: Normal rate and regular rhythm. Heart sounds: Normal heart sounds. Pulmonary: Effort: Pulmonary effort is normal. Breath sounds: Normal breath sounds. Abdominal: General: Bowel sounds are normal. Palpations: Abdomen is soft. Tenderness: There is no abdominal tenderness. Musculoskeletal: Right lower leg: No edema. Left lower leg: No edema. Skin: General: Skin is warm. Capillary Refill: Capillary refill takes less than 2 seconds. Neurological: General: No focal deficit present. Mental Status: She is alert and oriented to person, place, and time. Gait: Gait normal. Psychiatric: Mood and Affect: Mood normal. Behavior: Behavior normal. Assessment and Plan: Xuan was seen today for depression. Diagnoses and all orders for this visit: Moderate episode of recurrent major depressive disorder (CMS-HCC) Anxiety Mild intermittent reactive airway disease without complication - Pulmonary function test Complete PFT w/ BD (Spirometry (Flow Volume Loop) pre/post short acting bronchodilator w/ DLCO (diffusion study) and Lung Volume); Future - albuterol (PROVENTIL,VENTOLIN) nebulizer solution 2.5 mg - albuterol (PROVENTIL HFA;VENTOLIN HFA) 90 mcg/actuation inhaler; Inhale 2 puffs every 6 (six) hours as needed for wheezing or shortness of breath. Follow-up: Patient would like to continue current dose of Trintellix. She declines counseling and will continue to use the priyanka on her phone as mentioned in the HPI. She is happy with her improvement of her depression anxiety on the Trintellix. The medication is affordable for her and covered under her insurance. We will obtain PFT and trial albuterol inhaler for patient. She was told about [employer] to get the bean down. She may use her albuterol inhaler when she feels short of breath or for wheezing or before exercise. She will follow up in 8 weeks to discuss further treatment options and results of PFT. JACINTO ALAS APRN-CNP 11/10/24 1128 documented in this encounter [facility] [employer] 10-13-2024 History of Present illness Narrative Images from the original note were not included. [address] [place] [id number] Patient: Xuan Jackson Date of : 1990 Encounter Date: 10/13/2024 History of Present Illness: The patient is a 33 y.o. female, an established patient, and is here for Chief Complaint Patient presents with Depression Follow-up . HPI Patient feels about 50% improvement with her depression anxiety symptoms on the Trintellix 10 mg. She has been on this for about 1 month now. She has occasional nausea and 1-2 nights out of the month she has problems sleeping. She does report increased motivation and energy levels on most days. Her feels she has ADHD and her ADHD symptoms have been a little bit worse with her increased energy levels on the medication. She has never been diagnosed with ADHD. Patient is concerned because she keeps gaining weight and has gained 3 lb since last appointment. She is trying to watch her portion sizes and be more active. Patient also has complaints of some widespread itching and she knows she is allergic to cats and she has cats in the home. She also has widespread itching and sometimes rash develop when she is more anxious. Her mother has anxiety problems and she takes hydroxyzine and becomes too sedated so patient does not want this option. She also has an itchy area on her mid upper back that she wants looked at that she scratches and intermittently bleeds. This itchy area has been present for about 2 years. Problem List Items Addressed This Visit Other Primary insomnia Moderate episode of recurrent major depressive disorder ([facility]) - Primary Relevant Medications vortioxetine (TRINTELLIX) 10 mg tablet Other Visit Diagnoses Jung hemangioma Past Medical, Family, and Social History Update: The following portions of the patient's history were reviewed and updated as appropriate: allergies, current medications, past family history, past medical history, past social history, past surgical history and problem list. Past Medical History: Diagnosis Date Anxiety 10/22/2022 Depression 10/22/2022 Visual impairment Past Surgical History: Procedure Laterality Date CARPAL TUNNEL RELEASE Right 2020 SECTION 09/2019 HYSTEROSCOPY DILATION ABLATION ENDOMETRIAL NOVASURE & CPT 12995 N/A 02/01/2023 Performed by Tamara Brady MD at [facility] LAPAROSCOPIC TUBAL LIGATION Bilateral 11/2019 WISDOM TOOTH EXTRACTION Current Outpatient Medications Medication Sig Dispense Refill hydrocortisone (HYTONE) 2.5 % cream Apply 1 Application topically in the morning and 1 Application before bedtime. FOR HANDS. 30 g 1 ibuprofen (MOTRIN) 800 mg tablet Take 1 tablet (800 mg total) by mouth every 8 (eight) hours as needed for pain. 30 tablet 0 loratadine (CLARITIN) 10 mg tablet Take 1 tablet (10 mg total) by mouth in the morning. 14 tablet 1 LORazepam (ATIVAN) 0.5 mg tablet Take 1 tablet (0.5 mg total) by mouth 2 (two) times a day as needed for anxiety. 10 tablet 0 triamcinolone (KENALOG) 0.1 % cream Apply 1 Application topically in the morning and 1 Application before bedtime. Limbs, trunk, ankles wrists. 80 g 1 vortioxetine (TRINTELLIX) 10 mg tablet Take 1 tablet (10 mg total) by mouth in the morning. 30 tablet 1 No current facility-administered medications for this visit. (All medications reviewed and updated by provider since last office visit or hospitalization) Allergies: Cat dander and Wellbutrin [bupropion hcl] Tobacco History: Social History Tobacco Use Smoking Status Never Smokeless Tobacco Never (If patient a smoker, smoking cessation counseling offered) Social History: Social History Substance and Sexual Activity Alcohol Use Yes Comment: rarely Review of Systems: Review of Systems Constitutional: Positive for unexpected weight change (3 lb weight gain since last appointment). HENT: Negative. Negative for postnasal drip, rhinorrhea and trouble swallowing. Respiratory: Negative. Cardiovascular: Negative. Musculoskeletal: Negative. Skin: Positive for rash. Neurological: Negative. Psychiatric/Behavioral: Positive for decreased concentration and sleep disturbance. Negative for agitation and dysphoric mood. The patient is not nervous/anxious. Physical Exam: BP 134/80 (BP Site: Left Arm, BP Postition: Sitting, BP CUFF SIZE: L (13-17 inches)) Pulse 87 Temp 36.7 C (98 F) (Oral) Resp 18 Ht 149.9 cm (4' 11.02 ) Wt 100.5 kg (221 lb 8 oz) SpO2 97% BMI 44.71 kg/m Physical Exam Vitals reviewed. Constitutional: Appearance: Normal appearance. She is obese. HENT: Head: Normocephalic and atraumatic. Skin: Findings: Rash present. Rash is papular. Comments: Bright red raised papule on area marked above, dry Neurological: General: No focal deficit present. Mental Status: She is alert and oriented to person, place, and time. Psychiatric: Mood and Affect: Mood normal. Behavior: Behavior normal. Assessment and Plan: Xuan was seen today for depression and follow-up. Diagnoses and all orders for this visit: Moderate episode of recurrent major depressive disorder (CMS-HCC) Primary insomnia Jung hemangioma Other orders - triamcinolone (KENALOG) 0.1 % cream; Apply 1 Application topically in the morning and 1 Application before bedtime. Limbs, trunk, ankles wrists. - vortioxetine (TRINTELLIX) 10 mg tablet; Take 1 tablet (10 mg total) by mouth in the morning. Follow-up: Patient has made good progress with the Trintellix, plan to keep current dose of 10 mg but she should switch to nighttime dosing as her peak plasma levels are in about 9 hours after taking after pharmacology of drug was reviewed. This may help with her sleep as well. She is also advised to clean up her sleep hygiene. If this fails to help with her intermittent insomnia we can consider trazodone at low-dose before bedtime. Side effects and mechanism of action of this medication were discussed with patient. Patient has a jung hemangioma on her upper mid back that she may start to apply the triamcinolone as previously prescribed. She may also use heavy moisturizer at night. She may do the triamcinolone for 10 days to help with the irritation and if this does not help we can try cryo to remove at next appointment. Return to office in 1 month. PRICE SAMSON APRN-JACINTO Tovar 10/13/24 0926 documented in this encounter [facility] 09-08-2024 History of Present illness Narrative [address] [place] [id number] Patient: Xuan Jackson Date of : 1990 Encounter Date: 09/08/2024 History of Present Illness: The patient is a 33 y.o. female, an established patient, and is here for Chief Complaint Patient presents with Go over genesight results . HPI Patient is here to review her GeneSight testing as we have tried several antidepressants/anxiolytic medications without significant improvement in her symptoms. She did stop the Wellbutrin after last appointment and her itching to her skin and rash has improved. This was not helping well with her anxiety symptoms. Problem List Items Addressed This Visit Other Moderate episode of recurrent major depressive disorder (CMS-HCC) Relevant Medications vortioxetine (TRINTELLIX) 10 mg tablet Anxiety - Primary Past Medical, Family, and Social History Update: The following portions of the patient's history were reviewed and updated as appropriate: allergies, current medications, past family history, past medical history, past social history, past surgical history and problem list. Past Medical History: Diagnosis Date Anxiety 10/22/2022 Depression 10/22/2022 Visual impairment Past Surgical History: Procedure Laterality Date CARPAL TUNNEL RELEASE Right 2020 SECTION 09/2019 HYSTEROSCOPY DILATION ABLATION ENDOMETRIAL NOVASURE & CPT 18260 N/A 02/01/2023 Performed by Tamara Brady MD at [facility] LAPAROSCOPIC TUBAL LIGATION Bilateral 11/2019 WISDOM TOOTH EXTRACTION Current Outpatient Medications Medication Sig Dispense Refill hydrocortisone (HYTONE) 2.5 % cream Apply 1 Application topically in the morning and 1 Application before bedtime. FOR HANDS. 30 g 1 ibuprofen (MOTRIN) 800 mg tablet Take 1 tablet (800 mg total) by mouth every 8 (eight) hours as needed for pain. 30 tablet 0 loratadine (CLARITIN) 10 mg tablet Take 1 tablet (10 mg total) by mouth in the morning. 14 tablet 1 LORazepam (ATIVAN) 0.5 mg tablet Take 1 tablet (0.5 mg total) by mouth 2 (two) times a day as needed for anxiety. 10 tablet 0 triamcinolone (KENALOG) 0.1 % cream Apply 1 Application topically in the morning and 1 Application before bedtime. Limbs, trunk, ankles wrists. 80 g 1 vortioxetine (TRINTELLIX) 10 mg tablet Take 1 tablet (10 mg total) by mouth in the morning. 30 tablet 1 No current facility-administered medications for this visit. (All medications reviewed and updated by provider since last office visit or hospitalization) Allergies: Cat dander and Wellbutrin [bupropion hcl] Tobacco History: Social History Tobacco Use Smoking Status Never Smokeless Tobacco Never (If patient a smoker, smoking cessation counseling offered) Social History: Social History Substance and Sexual Activity Alcohol Use Yes Comment: rarely Review of Systems: Review of Systems Constitutional: Negative. HENT: Positive for postnasal drip and rhinorrhea. Negative for trouble swallowing. Respiratory: Negative. Cardiovascular: Negative. Musculoskeletal: Negative. Skin: Positive for rash. Neurological: Negative. Psychiatric/Behavioral: Positive for agitation, decreased concentration, dysphoric mood and sleep disturbance. The patient is nervous/anxious. Physical Exam: BP 132/80 (BP Site: Left Arm, BP Postition: Sitting, BP CUFF SIZE: L (13-17 inches)) Pulse 83 Temp 36.5 C (97.7 F) (Oral) Resp 18 Ht 149.9 cm (4' 11.02 ) Wt 99.1 kg (218 lb 6.4 oz) SpO2 98% BMI 44.09 kg/m Physical Exam Vitals reviewed. Constitutional: Appearance: Normal appearance. She is obese. HENT: Head: Normocephalic and atraumatic. Neurological: General: No focal deficit present. Mental Status: She is alert and oriented to person, place, and time. Psychiatric: Mood and Affect: Mood normal. Behavior: Behavior normal. Assessment and Plan: Xuan was seen today for go over [facility] results. Diagnoses and all orders for this visit: Anxiety Moderate episode of recurrent major depressive disorder (CMS-HCC) Other orders - vortioxetine (TRINTELLIX) 10 mg tablet; Take 1 tablet (10 mg total) by mouth in the morning. Follow-up: Thorough review of options per [employer] testing for her treatment of depression anxiety. Since she has tried and failed on Wellbutrin, Lexapro, and Ativan now her insurance may cover the Trintellix as this is on her well metabolize list on the GeneSight testing. Side effects and mechanism of action were reviewed with patient and she was given a 2 week sample. She was advised to take the 5 mg dose of the Trintellix for 1 week and then increase to 10 mg dose. If she experiences nausea or any other adverse side effects she is to let provider know. We will initiate prior authorization and she was advised to go to [employer] website for discount card. Follow-up in 1 month on the Trintellix. JACINTO ALAS APRN-CNP 09/12/24 1038 documented in this encounter [facility] 08-25-2024 History of Present illness Narrative Images from the original note were not included. [address] [id number] Patient: Xuan Jackson Date of : 1990 Encounter Date: 08/25/2024 History of Present Illness: The patient is a 33 y.o. female, an established patient, and is here for Chief Complaint Patient presents with Follow-up Testing GENESIGHT TESTING results. Also follow up from strep . HPI Patient is here to go over the results of her GeneSight testing but unfortunately this has not resulted yet at this time. She states her anxiety has no significant improvement since starting the Wellbutrin but she does notice some worsening of the rash on her hands and wrists and the itching associated. She has had a few lb weight loss with the Wellbutrin so she does appreciate that. The rash that she has is very itchy to her hands, wrists, ankles and the tops of her feet. She occasionally has the rash to her chest as well. The rash waxes and wanes and is been going on for several years and does worsen when she becomes more anxious. It also seems to worsen in the winter months. Problem List Items Addressed This Visit Other Anxiety - Primary Other Visit Diagnoses Atopic dermatitis, unspecified type Past Medical, Family, and Social History Update: The following portions of the patient's history were reviewed and updated as appropriate: allergies, current medications, past family history, past medical history, past social history, past surgical history and problem list. Past Medical History: Diagnosis Date Anxiety 10/22/2022 Depression 10/22/2022 Visual impairment Past Surgical History: Procedure Laterality Date CARPAL TUNNEL RELEASE Right 2020 SECTION 09/2019 HYSTEROSCOPY DILATION ABLATION ENDOMETRIAL NOVASURE & CPT 40518 N/A 02/01/2023 Performed by Tamara Brady MD at [facility] LAPAROSCOPIC TUBAL LIGATION Bilateral 11/2019 WISDOM TOOTH EXTRACTION Current Outpatient Medications Medication Sig Dispense Refill escitalopram (LEXAPRO) 20 mg tablet take 1 tablet by mouth every morning 90 tablet 1 ibuprofen (MOTRIN) 800 mg tablet Take 1 tablet (800 mg total) by mouth every 8 (eight) hours as needed for pain. 30 tablet 0 LORazepam (ATIVAN) 0.5 mg tablet Take 1 tablet (0.5 mg total) by mouth 2 (two) times a day as needed for anxiety. 10 tablet 0 hydrocortisone (HYTONE) 2.5 % cream Apply 1 Application topically in the morning and 1 Application before bedtime. FOR HANDS. 30 g 1 loratadine (CLARITIN) 10 mg tablet Take 1 tablet (10 mg total) by mouth in the morning. 14 tablet 1 triamcinolone (KENALOG) 0.1 % cream Apply 1 Application topically in the morning and 1 Application before bedtime. Limbs, trunk, ankles wrists. 80 g 1 No current facility-administered medications for this visit. (All medications reviewed and updated by provider since last office visit or hospitalization) Allergies: Cat dander Tobacco History: Social History Tobacco Use Smoking Status Never Smokeless Tobacco Never (If patient a smoker, smoking cessation counseling offered) Social History: Social History Substance and Sexual Activity Alcohol Use Yes Comment: rarely Review of Systems: Review of Systems Constitutional: Negative. HENT: Positive for postnasal drip and rhinorrhea. Negative for trouble swallowing. Respiratory: Negative. Cardiovascular: Negative. Musculoskeletal: Negative. Skin: Positive for rash. Neurological: Negative. Psychiatric/Behavioral: Positive for agitation, decreased concentration, dysphoric mood and sleep disturbance. The patient is nervous/anxious. Physical Exam: BP 126/80 (BP Site: Left Arm, BP Postition: Sitting, BP CUFF SIZE: L (13-17 inches)) Pulse 85 Temp 36.7 C (98.1 F) (Oral) Resp 18 Ht 149.9 cm (4' 11 ) Wt 97.7 kg (215 lb 6.4 oz) SpO2 97% BMI 43.51 kg/m Physical Exam Vitals reviewed. Constitutional: Appearance: Normal appearance. She is obese. HENT: Head: Normocephalic and atraumatic. Skin: Findings: Rash present. Rash is macular and papular. Comments: Maculopapular rash to areas marked in above diagram with some scabs to left hand Neurological: General: No focal deficit present. Mental Status: She is alert and oriented to person, place, and time. Psychiatric: Mood and Affect: Mood normal. Behavior: Behavior normal. Assessment and Plan: Xuan was seen today for follow-up. Diagnoses and all orders for this visit: Anxiety Atopic dermatitis, unspecified type Other orders - hydrocortisone (HYTONE) 2.5 % cream; Apply 1 Application topically in the morning and 1 Application before bedtime. FOR HANDS. - triamcinolone (KENALOG) 0.1 % cream; Apply 1 Application topically in the morning and 1 Application before bedtime. Limbs, trunk, ankles wrists. - loratadine (CLARITIN) 10 mg tablet; Take 1 tablet (10 mg total) by mouth in the morning. Follow-up: Patient likely has an eczema type rash 2 areas marked above diagram. She was advised to use the hydrocortisone cream to her hands and the triamcinolone to the rest of the areas. She should use Vaseline at night and may use Aveeno or Eucerin cream during the day. She may also use the Claritin to stop her from itching and scratching open the areas. We will await her GeneSight testing for further management of her anxiety. She can wean off the Wellbutrin by taking every other day for 1 week and then stopping. This is not significantly helping with her anxiety and possibly making it worse as well as her rash. Follow-up in 1 month and she was advised to call [facility], Psychiatry as they had closer referral because she did not call back. JACINTO ALAS APRN-CNP 08/25/24 1411 documented in this encounter [facility] 08-04-2024 History of Present illness Narrative Subjective Patient ID: Xuan Jackson is a 33 y.o. female who presents for Enlarged Tonsils Pt reports she had recent severe tonsil hyp associated with strep throat./ Tx with amox. Sx improved since tx with abx. Still has a bit of throat pain. Abx twice in the past year for strep. Review of Systems HENT: Positive for congestion, drooling, sore throat and trouble swallowing. Negative for ear discharge and ear pain. Respiratory: Positive for cough. Negative for shortness of breath and stridor. Gastrointestinal: Negative for abdominal pain, diarrhea and vomiting. Musculoskeletal: Positive for neck pain. Neurological: Positive for headaches. All other systems reviewed and are negative. Family History Problem Relation Name Age of Onset Asthma Mother Magalys Orourkeaideeafshan Rashes / Skin problems Mother Magalys Shanaafshan Thyroid disease Mother Magalys Shanaafshan Diabetes Father Orlin Lancaster Active Ambulatory Problems Diagnosis Date Noted Anxiety 11/27/2022 Carpal tunnel syndrome of right wrist 10/22/2022 Class 1 obesity due to excess calories without serious comorbidity with body mass index (BMI) of 34.0 to 34.9 in adult 11/27/2018 Diarrhea 11/02/2018 Encounter for general adult medical examination without abnormal findings 11/02/2018 Failed medical induction of labor 10/22/2022 macrosomia in third trimester 10/22/2022 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 Menorrhagia 08/02/2024 Menstrual disorder 08/02/2024 Metrorrhagia 10/22/2022 Moderate episode of recurrent major depressive disorder (CMS/HCC) 11/27/2022 Nausea 11/02/2018 Obesity with body mass index 30 or greater 10/22/2022 Polyhydramnios in third trimester 10/22/2022 Postcoital bleeding 10/22/2022 Primary insomnia 10/22/2022 RUQ pain 11/02/2018 S/P primary low transverse 10/22/2022 Sleep apnea 10/22/2022 Term 09/20/2019 Uterine contractions during 09/11/2019 Vitamin D deficiency 10/22/2022 Resolved Ambulatory Problems Diagnosis Date Noted No Resolved Ambulatory Problems Past Medical History: Diagnosis Date Obesity Past Surgical History: Procedure Laterality Date CARPAL TUNNEL RELEASE Right SECTION, CLASSIC TUBAL LIGATION WISDOM TOOTH EXTRACTION No Known Allergies Current Outpatient Medications on File Prior to Visit Medication Sig Dispense Refill amoxicillin (Amoxil) 500 MG capsule TAKE 1 CAPSULE BY MOUTH IN THE MORNING AND 1 AT BEDTIME FOR 10 DAYS buPROPion XL (Wellbutrin XL) 150 MG 24 hr tablet Take 150 mg by mouth in the morning. escitalopram (Lexapro) 20 MG tablet Take 1 tablet by mouth in the morning. ibuprofen 800 MG tablet Take 800 mg by mouth every 8 (eight) hours if needed loratadine (Claritin) 10 MG tablet Take 10 mg by mouth in the morning. LORazepam (Ativan) 0.5 MG tablet Take by mouth No current facility-administered medications on file prior to visit. Objective Last Recorded Vitals Vitals: 08/04/24 0852 BP: (!) 167/103 ENT Physical Exam Constitutional Appearance: patient appears well-developed, well-nourished and well-groomed, Head and Face Appearance: head appears normal and face appears atraumatic; Ear Ear Canals: right ear canal normal; left ear canal normal; Tympanic Membranes: right tympanic membrane normal; left tympanic membrane normal; Nose External Nose: nares patent bilaterally; external nose normal; Internal Nose: septum normal; Oral Cavity/Oropharynx Tongue: normal; Oral mucosa: normal; Hard palate: normal; Soft palate: normal; Tonsils: bilateral tonsils 3+, OC/OP comments: Mallampati 4 Neck Neck: neck normal; neck palpation normal; Thyroid: thyroid normal; Respiratory Inspection: breathing unlabored; normal breathing rate; Auscultation: breath sounds are clear; Cardiovascular Inspection: extremities are warm and well perfused; no peripheral edema present; Auscultation: regular rate and rhythm; Assessment/Plan Diagnoses and all orders for this visit: Strep tonsillitis Pt has moderate tonsil hyp and pertsistent sx. Tx with clinda. Check CBC and monospot. Due to body habitus and limited exposure of tonsils on exam, pt will need a referral to a tertiary care center if tonsillectomy needed. Answers submitted by the patient for this visit: Sore Throat Questionnaire (Submitted on 08/03/2024) Chief Complaint: Sore throat Chronicity: recurrent Onset: 1 to 4 weeks ago Progression since onset: gradually worsening Pain worse on: left Fever: no fever pain severity now: mild Pain - numeric: 2/10 hoarse voice: Yes plugged ear sensation: No swollen glands: Yes strep: Yes documented in this encounter [facility] 06-22-2024 History of Present illness Narrative [address] [place] [id number] Patient: Xuan Jackson Date of : 1990 Encounter Date: 06/22/2024 History of Present Illness: The patient is a 33 y.o. female, an established patient, and is here for Chief Complaint Patient presents with Weight Check Medication,weight check no fever with cough.yellow green . HPI For the last 1 week patient has had increased sinus drainage, cough with thick mucus and a hoarse voice. She denies any body aches or fever. She feels her symptoms may be caused by cleaning the house lately. She has been also having some insomnia, she can not fall asleep and has increased fatigue during the day. She takes her Ativan very rarely when she has panic symptoms. She feels the Lexapro is helping with her moods but it help better when she 1st started the medication and now she feels it has plateaued. She has taken Vraylar in the past but this had adverse side effects and her insurance would not cover. Problem List Items Addressed This Visit Other Moderate episode of recurrent major depressive disorder ([facility]) Relevant Medications buPROPion XL (WELLBUTRIN XL) 150 mg 24 hr tablet Other Relevant Orders Ambulatory referral to Psychiatry ([facility]) Anxiety Relevant Orders Ambulatory referral to Psychiatry ([facility]) Other Visit Diagnoses Upper respiratory symptom - Primary Relevant Orders POCT Influenza A/Influenza B/SARS-COV-2 Veritor (Completed) Past Medical, Family, and Social History Update: The following portions of the patient's history were reviewed and updated as appropriate: allergies, current medications, past family history, past medical history, past social history, past surgical history and problem list. Past Medical History: Diagnosis Date Anxiety 10/22/2022 Depression 10/22/2022 Visual impairment Past Surgical History: Procedure Laterality Date CARPAL TUNNEL RELEASE Right 2020 SECTION 09/2019 HYSTEROSCOPY DILATION ABLATION ENDOMETRIAL NOVASURE & CPT 24491 N/A 02/01/2023 Performed by Tamara Brady MD at [facility] LAPAROSCOPIC TUBAL LIGATION Bilateral 11/2019 WISDOM TOOTH EXTRACTION Current Outpatient Medications Medication Sig Dispense Refill escitalopram (LEXAPRO) 20 mg tablet take 1 tablet by mouth every morning 90 tablet 1 LORazepam (ATIVAN) 0.5 mg tablet Take 1 tablet (0.5 mg total) by mouth 2 (two) times a day as needed for anxiety. 10 tablet 0 buPROPion XL (WELLBUTRIN XL) 150 mg 24 hr tablet Take 1 tablet (150 mg total) by mouth every morning. 30 tablet 1 loratadine (CLARITIN) 10 mg tablet Take 1 tablet (10 mg total) by mouth in the morning. 14 tablet 0 No current facility-administered medications for this visit. (All medications reviewed and updated by provider since last office visit or hospitalization) Allergies: Cat dander Tobacco History: Social History Tobacco Use Smoking Status Never Smokeless Tobacco Never (If patient a smoker, smoking cessation counseling offered) Social History: Social History Substance and Sexual Activity Alcohol Use Yes Comment: rarely Review of Systems: Review of Systems Constitutional: Positive for activity change and unexpected weight change (7 lb weight gain since last appointment). HENT: Positive for congestion, postnasal drip, rhinorrhea, sinus pressure and sore throat. Respiratory: Negative. Cardiovascular: Negative. Gastrointestinal: Negative. Neurological: Negative. Psychiatric/Behavioral: Positive for agitation, decreased concentration, dysphoric mood and sleep disturbance. Negative for self-injury and suicidal ideas. The patient is nervous/anxious. Physical Exam: BP 126/90 (BP Site: Left Arm, BP Postition: Sitting, BP CUFF SIZE: L (13-17 inches)) Pulse 88 Temp 36.7 C (98.1 F) (Oral) Resp 18 Ht 149.9 cm (4' 11 ) Wt 101.4 kg (223 lb 8 oz) SpO2 96% Unknown BMI 45.14 kg/m Physical Exam Vitals reviewed. Inventory Specialist present: toddler daughter is present. Constitutional: Appearance: Normal appearance. She is obese. HENT: Head: Normocephalic. Right Ear: Tympanic membrane, ear canal and external ear normal. Left Ear: Tympanic membrane, ear canal and external ear normal. Nose: Rhinorrhea present. Mouth/Throat: Mouth: Mucous membranes are moist. Eyes: Pupils: Pupils are equal, round, and reactive to light. Cardiovascular: Rate and Rhythm: Normal rate and regular rhythm. Heart sounds: Normal heart sounds. Pulmonary: Effort: Pulmonary effort is normal. Breath sounds: Normal breath sounds. Abdominal: General: Bowel sounds are normal. Palpations: Abdomen is soft. Tenderness: There is no abdominal tenderness. Lymphadenopathy: Cervical: No cervical adenopathy. Skin: General: Skin is warm. Capillary Refill: Capillary refill takes less than 2 seconds. Comments: Lacy macular rash scattered to neck and chest Neurological: General: No focal deficit present. Mental Status: She is alert and oriented to person, place, and time. Psychiatric: Attention and Perception: Attention normal. Mood and Affect: Mood normal. Speech: Speech normal. Behavior: Behavior normal. Thought Content: Thought content normal. Cognition and Memory: Cognition normal. Judgment: Judgment normal. Assessment and Plan: Xuan was seen today for weight check. Diagnoses and all orders for this visit: Upper respiratory symptom - POCT Influenza A/Influenza B/SARS-COV-2 Veritor Moderate episode of recurrent major depressive disorder (CMS-HCC) - Ambulatory referral to Psychiatry ([facility]); Future Anxiety - Ambulatory referral to Psychiatry ([facility]); Future Other orders - buPROPion XL (WELLBUTRIN XL) 150 mg 24 hr tablet; Take 1 tablet (150 mg total) by mouth every morning. - loratadine (CLARITIN) 10 mg tablet; Take 1 tablet (10 mg total) by mouth in the morning. Follow-up: Patient likely has a viral upper respiratory infection versus allergies and should be treated symptomatically. She may use Claritin, Flonase and Tylenol [id number] as needed for symptoms. Her flu and COVID swab were negative today. Unfortunately she was not called by the last referral placed for Psychiatry and did not notify office. We will add Wellbutrin to help with her motivation during the day so she may be more active and able to sleep at night. New referral for psychiatrist placed today. Side effects and mechanism of action of the Wellbutrin were discussed with patient. Recheck symptoms in 1 month. PRICE L JACINTO SAMSON APRN-CNP 06/25/24 2200 documented in this encounter [facility] 01-25-2024 History of Present illness Narrative IUD Insertion Procedure Note 01/25/2024 Xuan Jackson is a 33 y.o. presents for Mirena IUD insertion. Indication: MENSTRUAL REGULATION; CYSTS SUPPRESSION Patient s Patient's last menstrual period was 10/18/2023 (approximate).. Current contraception: BTL Most recent day of sexual intercourse Risks and benefits were discussed with the patient. We discussed possible complications, including infection, bleeding, pelvic pain, expulsion, ectopic , miscarriage, failure and uterine perforation. Verbal and written consent obtained. Consent scanned into Media tab. Vitals: 01/25/24 1330 Weight: 99.1 kg (218 lb 6.4 oz) Urine test today: NEGATIVE Procedure Details . Device: NDC: Lot #: Expiration Date: Speculum was placed. Cervix cleansed with Betadine. The cervix was stabilized with an allis clamp. Uterus sounded to 6 cm. IUD inserted without difficulty. String visible and trimmed. Patient tolerated procedure well. Condition: Stable Complications: None Assessment/Plan 33 y.o. female 1. Suppressed periods 2. Pre-procedure lab exam - IUD placed w/o difficulty - Follow up 4 weeks for string check G/C cultures collected today yes Counseling performed: The patient was advised to call for any fever or for prolonged or severe pain or bleeding. She was advised to abstain from intercourse for 7 days and to use barrier method to prevent STDs. She was advised to use OTC ibuprofen as needed for mild to moderate pain. She was counseled that her IUD will need to be removed in 8YR 1. Suppressed periods 2. Pre-procedure lab exam No orders of the defined types were placed in this encounter. MD Lucia CAMPA RN documented in this encounter [facility] 01-04-2024 History of Present illness Narrative Xuan Jackson is a 33 y.o.female. Patient's last menstrual period was 10/22/2023 (approximate).. She presents for ED follow up of possible ovarian torsion. Pt had pelvic ultrasound on 01/03/24 and is here to go over results and treatment plan. PAIN NOW RESOLVED PAIN REPORTED 8/10 WHEN SHE WENT TO THE EMERGENCY DEPARTMENT SONO FINDINGS: Uterus is 10.4 x 3.9 x 5.2 cm. Endometrial stripe is 7.8 mm in thickness which is within the range of normal for premenopausal female. Nabothian cyst in the cervix measuring 1.4 x 1.0 cm in size. Right ovary is 3.4 x 2.6 x 4.1 cm. Small cyst present in the right ovary measuring 1.7 x 2.1 x 3.0 cm. Appears to be a simple cyst in this patient's age group no further evaluation is necessary. The left ovary is 2.8 x 1.5 x 2.2 cm. No dominant cyst or mass. Normal Doppler flow to both ovaries. IMPRESSION: * Nabothian cyst in the cervix measurement given above * Small cyst in the left ovary appears to be a simple cyst. In this patient's age group no further evaluation is necessary. Current contraception:bilateral tubal ligation OB History 7 Para 3 Term 2 1 AB 4 Living 3 SAB 3 IAB Ectopic Multiple Live Births 3 MEDICAL HX Past Medical History: Diagnosis Date Anxiety 10/22/2022 Depression 10/22/2022 Visual impairment SURGICAL HX Past Surgical History: Procedure Laterality Date CARPAL TUNNEL RELEASE Right 2020 SECTION 09/2019 HYSTEROSCOPY DILATION ABLATION ENDOMETRIAL NOVASURE & CPT 18675 N/A 02/01/2023 Performed by Tamara Brady MD at [facility] LAPAROSCOPIC TUBAL LIGATION Bilateral 11/2019 WISDOM TOOTH EXTRACTION FAMILY HX Family History Problem Relation Age of Onset Asthma Mother Thyroid disease Mother Diabetes Father borderline MEDS Current Outpatient Medications Medication Sig Dispense Refill cariprazine (VRAYLAR) 1.5 mg capsule Take 1 capsule (1.5 mg total) by mouth in the morning. 30 capsule 1 escitalopram (LEXAPRO) 20 mg tablet take 1 tablet by mouth every morning 90 tablet 1 HYDROcodone-acetaminophen (NORCO) 5-325 mg per tablet Take 1 tablet by mouth every 6 (six) hours as needed for pain for up to 3 days. Max Daily Amount: 4 tablets 12 tablet 0 LORazepam (ATIVAN) 0.5 mg tablet Take 1 tablet (0.5 mg total) by mouth 2 (two) times a day as needed for anxiety. 10 tablet 0 triamcinolone (KENALOG) 0.1 % cream Apply 1 Application topically in the morning and 1 Application before bedtime. 30 g 1 No current facility-administered medications for this visit. ALLERGIES Allergies Allergen Reactions Cat Dander Eye Swelling, Hives, Itching and Wheezing Review of Systems Review of Systems Objective LMP 10/22/2023 (Approximate) Physical Exam BP (!) 140/92 Ht 149.9 cm (4' 11 ) Wt 98.2 kg (216 lb 9.6 oz) LMP 10/18/2023 (Approximate) BMI 43.75 kg/m Physical Exam GEN AAOX3, NAD HEENT UNREMARKABLE HEART RRR LUNGS CTAB ABD BENIGN, OBESE, NTND PELVIS: EG APPROP FOR AGE, NO LESIONS VAGINA APPROP FOR AGE, NO LESIONS BIMANUAL NO MASSES OR TENDERNESS RECTAL DEFERRED EXTREM NO CCE, NO CALF TENDERNESS Assessment/Plan: MITTELSCHMERZ ULTRASOUND WITHIN NORMAL LIMITS SUGGESTED MEDICAL OPTIONS FOR OVULATORY SUPPRESSION PATIENT OPTS FOR IUD URINE FOR HCG AND GC CT TODAY RETURN TO OFFICE FOR IUD INSERTION IN 2-3 WEEKS/WITH NEXT MENSES MD RYAN CAMPA CMA documented in this encounter [facility] 08-03-2022 Evaluation note Encounter Date Diagnosis Assessment Notes Jul, Sore throat (ICD-10 - J02.9) Jul, Strep pharyngitis (ICD-10 - J02.0) Strep throat material was printed Drink plenty fluids, get plenty of rest. Take Tylenol or Motrin as needed for aches pains or fevers. Take the amoxicillin and prednisone as prescribed until gone. You are considered contagious until you have been the antibiotic for 24 hours. Follow-up with your family physician if no improvement in 2 to 3 days. Consider drinking warm tea with honey for comfort for your throat. [facility] Other 01-28-2020 History of Present illness Narrative* Matilda Pierson, ADRIAN - CNM - 09/12/2019 8:29 AM EST Department of Obstetrics and Gynecology Labor and Delivery Triage Note SUBJECTIVE: Pt states her contractions are every 5-10 minutes and still uncomfortable. apon entry to room pt was asleep. OBJECTIVE HISTORY OF PRESENT ILLNESS: The patient is a 28 y.o. female at 37w6d. OB History 4 Para 2 Term 1 1 AB 1 Living 2 SAB TAB Ectopic Molar Multiple Live Births 2 Patient presents with a chief complaint contractions Estimated Due Date: Estimated Date of Delivery: 09/27/19 Past Medical History: Diagnosis Date Anxiety Depression Vitals: BP (!) 113/58 Pulse 95 Temp 98 F (36.7 C) (Oral) Resp 14 LMP 12/21/2018 CONSTITUTIONAL: awake, alert, cooperative, no apparent distress, and appears stated age ABDOMEN: No scars, normal bowel sounds, soft, non-distended, non-tender, no masses palpated, no hepatosplenomegally GENITAL/URINARY: Uterus: Size normal, Contour normal Cervix: 3 50 Position: Cephalic Membranes: Intact heart rate: Baseline: 130 bpm, accelerations: present variability: moderate decelerations: absent NST: reactive Contraction frequency: irregular DATA: Results for orders placed or performed during the hospital encounter of 09/11/19 Urinalysis Result Value Ref Range Color, UA YELLOW YELLOW Turbidity UA CLOUDY (A) CLEAR Glucose, Ur NEGATIVE NEGATIVE Bilirubin Urine NEGATIVE NEGATIVE Ketones, Urine NEGATIVE NEGATIVE Specific [place], UA 1.015 1.010 - 1.020 Urine Hgb TRACE (A) NEGATIVE pH, UA 6.5 5.0 - 9.0 Protein, UA NEGATIVE NEGATIVE Urobilinogen, Urine Normal Normal Nitrite, Urine NEGATIVE NEGATIVE Leukocyte Esterase, Urine SMALL (A) NEGATIVE Urinalysis Comments NOT REPORTED Microscopic Urinalysis Result Value Ref Range - WBC, UA 5 TO 10 0 - 5 /HPF RBC, UA 5 TO 10 0 - 2 /HPF Casts UA NOT REPORTED /LPF Crystals UA NOT REPORTED None /HPF Epithelial Cells UA 5 TO 10 0 - 25 /HPF Renal Epithelial, Urine NOT REPORTED 0 /HPF Bacteria, UA 1+ (A) None Mucus, UA NOT REPORTED None Trichomonas, UA NOT REPORTED None Amorphous, UA NOT REPORTED None Other Observations UA NOT REPORTED NOT REQ. Yeast, UA NOT REPORTED None ASSESSMENT : Active Problems: Uterine contractions during PLAN: Discharge home after normal NST * Caro Figueroa RN - 09/11/2019 9:00 PM EST Pt arrives to unit with spouse and daughter. States she started feeling consistent contractions around 6:00PM . She describes contractions as tightening with sharp pain on the right side and pressure in my lower abdomen . States I think I lost her mucus plug yesterday and that she had a cerclage removal on Wednesday. Pt changes into gown, provides urine specimen, and is places on monitor. documented in this [facility] Phone: [phone] [phone] History of Present illness Narrative* Lizzie Darden RN - 09/08/2019 9:50 AM EST Reviewed monitor strip from [address] Nolasco. SVE now ordered. Ok to dc home if cervix unchanged since exam post cerclage removal. * Tea Vargas, HIRAM - 09/08/2019 8:[address] nolasco to room. Pt set up for cerclage removal. Pt feet up in foot plates. End of bed removed. Speculum placed and cerclage removed per Dr Nolasco. Orders received for one hour of monitoring and regular diet. Pt tolerated procedure well and denies any needs at this time. documented in this [employer] [employer] Phone: evaluation note* Diagnosis 36 weeks gestation of state, incidental documented in this encounter [employer] Phone: evaluation note* Diagnosis Incompetent cervix in , antepartum, third trimester documented in this encounter [employer] Phone: evaluation note* Diagnosis Uterine contractions during documented in this encounter [employer] Phone: evaluation note* Diagnosis Upper respiratory symptom- Primary Moderate episode of recurrent major depressive disorder (CMS-HCC) Anxiety Anxiety state, unspecified [facility] Diagnosis Strep tonsillitis- Primary [facility] Anxiety- Primary Anxiety state, unspecified Atopic dermatitis, unspecified type [facility]* Diagnosis Anxiety- Primary Anxiety state, unspecified Moderate episode of recurrent major depressive disorder (CMS-HCC) [facility]* Diagnosis Suppressed periods- Primary Other disorder of menstruation and other abnormal bleeding from female genital tract Pre-procedure lab exam Pre-procedural laboratory examination Screening for STD (sexually transmitted disease) [facility] Diagnosis Mittelschmerz- Primary Encounter for other general counseling or advice on contraception [facility]* Diagnosis Moderate episode of recurrent major depressive disorder (CMS-HCC)- Primary Primary insomnia Persistent disorder of initiating or maintaining sleep Jung hemangioma [facility]* Diagnosis Moderate episode of recurrent major depressive disorder (CMS-HCC)- Primary Anxiety Anxiety state, unspecified Mild intermittent reactive airway disease without complication [facility]* Diagnosis Moderate persistent asthma, unspecified whether complicated- Primary Anxiety Anxiety state, unspecified Moderate episode of recurrent major depressive disorder (CMS-HCC) Seasonal allergic rhinitis due to pollen Class 3 severe obesity due to excess calories with serious comorbidity and body mass index (BMI) of 40.0 to 44.9 in adult ([facility]) documented [facility]* Diagnosis Wellness examination- Primary Moderate episode of recurrent major depressive disorder (CMS-HCC) Anxiety Anxiety state, unspecified Tension headache Class 3 severe obesity due to excess calories without serious comorbidity with body mass index (BMI) of 40.0 to 44.9 in adult ([facility]) Atopic dermatitis, unspecified type Bilateral hearing loss, unspecified hearing loss type Mild intermittent reactive airway disease without complication Elevated blood pressure reading Elevated blood pressure reading without diagnosis of hypertension documented [facility]* Diagnosis Onset Date Resolution Status Admit Date Poison diego dermatitis acute Mar ust 2024 12:52pm [facility] Work Phone: Hospital Discharge instructions* Instructions* Lizzie Darden RN - 09/08/2019 OUTPATIENT DISCHARGE Gabriella Pinzon [facility] [place] Dr. Cope Anjali Browning [facility] Renzo Alas [facility] Dr. Claudia Marroquin Anjali Thurston [facility] ACTIVITY LIMITATIONS: ( x )Up and about as desired and tolerated ( )Up to bathroom only ( )Lay on either side ( )Avoid heavy lifting or exercise ( )No sex ( )No nipple stimulation ( )Complet bedrest ( )Avoid using stairs ( x )Increase fluids DRINK AT LEAST eight-8oz. Glasses of water daily. Call your Doctor if: ( x )Contractions are every 5 minutes apart (from start of one to the start of the next contraction) lasting 60 seconds for at least 1 hour, strong enough you can not walk or talk through the contraction and regular. ( x )Bag of water breaks ( x )Vaginal bleeding ( x )Unusual pain occurs ( x )Decreased movement ( ) labor: If you have 4 contractions in an hour Keep your scheduled follow up appointment. Or call for a follow up on . IN CASE OF EMERGENCY CONTACT LABOR AND DELIVERY . [facility] Work Phone: Hospital Discharge instructions* Instructions* Terri Valencia RN - 09/12/2019 OUTPATIENT DISCHARGE Gabriella Pinzon [facility] [place] or [place] Dr. Cope Dr. Moran, Anjali Rain [facility] Renzo Alas CN Anjali Thurston [facility] ACTIVITY LIMITATIONS: ( x )Up and about as desired and tolerated ( )Up to bathroom only ( )Lay on either side ( )Avoid heavy lifting or exercise ( )No sex ( )No nipple stimulation ( )Complet bedrest ( )Avoid using stairs ( x )Increase fluids DRINK AT LEAST eight-8oz. Glasses of water daily. Call your Doctor if: ( x )Contractions are every 5 minutes apart (from start of one to the start of the next contraction) lasting 60 seconds for at least 1 hour, strong enough you can not walk or talk through the contraction and regular. ( x )Bag of water breaks ( x )Vaginal bleeding ( x )Unusual pain occurs ( x )Decreased movement ( ) labor: If you have 4 contractions in an hour Keep your scheduled follow up appointment. Or call for a follow up on . IN CASE OF EMERGENCY CONTACT LABOR AND DELIVERY . documented in this [facility] Work Phone: Instructions* Attachments The following attachments cannot be sent through Care Everywhere. * Bupropion, ADULT ([place]) documented in this [facility] CenterImagin[facility] SystemInstructionsNot on file documented in this [facility] SystemInstructions* Attachments The following attachments cannot be sent through Care Everywhere. * Vortioxetine? ADULT ([place]) documented in this [facility] SystemInstructionsNot on file documented in this [facility] SystemInstructionsNot on file documented in this [facility] LIKECHARITY SystemInstructionsNot on file documented in this encounterThe [facility] HospitalFresh Interactive Technologies SystemInstructionsNot on file documented in this [facility] LIKECHARITY SystemInstructionsNot on file documented in this [facility] LIKECHARITY SystemInstructions* Attachments The following attachments cannot be sent through Care Everywhere. * Fluticasone and Salmeterol, ADULT ([place]) * Asthma action plan for adults ED discharge instructions ([place]) * Asthma? Adult ED ([place]) * Avoiding asthma triggers ([place]) * Citalopram, ADULT ([place]) documented in this [facility] SystemInstructionsNot on file documented in this [facility]ProC[facility] SystemReason for referral (narrative)No reason for referral information [facility] Work Phone: Summary Purpose Family History Relationship Condition Age at Onset Recorded Date/T kirti mother History of thyroidectomy Unknown Asthma Unknown father Hypertension Unknown Diabetes mellitus Unknown Advance Directives Documents on File Type Date Recorded Patient Equipment Inspector Expl anation Advance Directives and Living Will Power of Mail Distribution Clerk Latest Code Status on File Code Status Date Activated Date Inactivated Comments Full Code 09/20/2019 8:25 PM Full Code 09/20/2019 6:07 PM 09/20/2019 8:25 PM Full Code 09/20/2019 5:08 AM 09/20/2019 6:07 PM Full Code 09/11/2019 8:39 PM 09/12/2019 1:16 PM Full Code 04/05/2019 9:03 AM 04/05/2019 3:52 PM Latest Code Status on File Code Status Date Activated Date Inactivated Comments Full Code 09/20/2019 8:25 PM 09/23/2019 7:31 PM Documents on File Type Date Recorded Patient Equipment Inspector Expl anation Advance Directives and Living Will Power of Mail Distribution Clerk Latest Code Status on File Code Status Date Activated Date Inactivated Comments Full Code 04/05/2019 9:03 AM Full Code 04/05/2019 6:12 AM 04/05/2019 9:01 AM Latest Code Status on File Code Status Date Activated Date Inactivated Comments Full Code 04/05/2019 9:03 AM 04/05/2019 3:52 PM Full Code 04/05/2019 6:12 AM 04/05/2019 9:01 AM Latest Code Status on File Code Status Date Activated Date Inactivated Comments Full Code 09/11/2019 8:39 PM Documents on File Type Date Recorded Patient Equipment Inspector Expl anation Advance Directive 01/18/2025 9:12 AM Documents on File Type Date Recorded Patient Equipment Inspector Expl anation Advance Directive 01/18/2025 9:12 AM Advance Directive Response Recorded Date/ Time Advance Directives No April 12:43pm Discharge Instructions * Instructions* Terri Valencia RN - 09/23/2019 DO NOT TAKE MOTRIN (IBUPROFEN) WHILE TAKING PREDNISONE Follow-up with your OB doctor as specified. [facility] OB Department phone: Dr. Constance Pierson CNM Dr. Dean Rain CN [address] [facility] [address] [place] Renzo Alas, MSN, SALES DEPARTMENT SUPERVISOR, CNM [place] [id number] [facility] [id number] Cope [address] [facility] [address] Anjali Thurston CNM [address] [place] [address] [place] [address] DIET Eat a well balanced diet focusing on foods high in fiber and protein. Drink plenty of fluids especially water. To avoid constipation you may take a mild stool softener as recommended by your doctor or sales and catering coordinator. ACTIVITY Gradually increase your activity. Resume exercise regimen only after advice by your doctor or sales and catering coordinator. Avoid lifting anything heavier than a gallon of milk for SIX weeks. Avoid driving until your doctor or sales and catering coordinator has given their approval. Rise slowly from a lying to sitting and then a standing position. Climb stairs one at a time. Use caution when carrying your baby up and down the stairs. NO SEXUAL Activity for 4-6 weeks or until advised by your doctor; Nothing in vagina: intercourse, tampons, or douching. Be prepared to discuss family planning at your follow-up OB visit. You may feel tired or have a lack of energy. You may continue your vitamin to replenish nutrients post delivery. Nap when baby naps to catch up on sleep. EMOTIONS You may feel bernstein, sad, teary, & overwhelmed. Contact your OB provider if you feel you may be showing signs of depression, or have thoughts of harming yourself or your . If will not stop crying, contact another adult for help or place infant in their crib on their back and take a break. NEVER shake your infant. BLEEDING Vaginal bleeding will decrease in amount over the next few weeks. You will notice that as your activity increases, your flow may increase. This is your body's way oftelling you, you need to take things easier and rest more often. Call your care provider if you are saturating more than one maxi pad in an hour & resting does not help. BREAST CARE Take medications as recommended by your doctor or sales and catering coordinator for pain If you develop a warm, red, tender area on your breast or develop a fever contact your OB provider. For moms: If you become engorged, feeding may be more difficult or painful for 1-2 days. You may find it helpful to hand express some milk so that the can latch on more easily. While , continue to take your vitamins as directed by your doctor or sales and catering coordinator. Refer to the booklet in the folder/binder for more information. If you feel you need more assistance or have questions, please call Radha Rmaos IBCLC, leasing sales consultant, at or the OB department to schedule an appointment or phone consultation. For more FREE help, visit the Support Group on Wednesday evenings at 7 pm in the OB department. For NON- moms: You may apply ice packs to your breasts over your bra for twenty minutes at a time for comfort. Avoid stimulation to your breasts, when showering allow the water to strike your back not your breasts. Wear a good fitting bra until your milk dries, such as a sports bra. INCISIONAL CARE / LEEANN CARE Clean your incision in the shower with mild soap. After shower pat the incision area dry and allow the area open to air. If used, Steri-strips should be completely removed by 2 weeks but you may remove them as they become loose or soiled. If used, Michael should be removed by your care provider. If used/ordered, an abdominal binder may provide support for your incision. Use the leeann-bottle after toileting until bleeding stops. Cleanse your perineum from front to back If used, stitches will dissolve in 4-6 weeks. You may use a sitz bath or soak in a clean tub as needed for comfort. Kegel exercises will help restore bladder control. SWELLING Try to keep your legs elevated when you are sitting. When lying down keep your legs elevated. When wearing stocking or socks, make sure they are not too tight. WHEN TO CALL THE DOCTOR If you have a temp of 100.6 or more. If your bleeding has increased and you are saturating a pad in an hour. Your abdomen is tender to touch. You are passing blood clots bigger than the size of a lemon. If you are experiencing extreme weakness or dizziness. If you are having flu-like symptoms such as achy muscles or joints. There is a foul smell or a green color to your vaginal bleeding. If you have pain that cannot be relieved. You have persistent burning or frequency with urination. Call if you have concerns about your well-being. You are unable to sleep, eat, or are having thoughts of harming yourself or your baby. You have swelling, bleeding, drainage, foul odor, redness, or warmth in/around your incision or stitches. You have a red, warm, tender area in your calf. documented in this encounter* Instructions* Leatha Darden RN - 04/05/2019 OUTPATIENT DISCHARGE Gabriella Pinzon [facility] or [place] Anjali Browning [facility] Renzo Alas [facility] Dr. Claudia Marroquin Anjali Thurston [facility] ACTIVITY LIMITATIONS: ( )Up and about as desired and tolerated Take it easy today. Call your Doctor if: ( )Contractions are every 5 minutes apart (from start of one to the start of the next contraction) lasting 60 seconds for at least 1 hour, strong enough you can not walk or talk through the contraction and regular. ( )Bag of water breaks ( )Vaginal bleeding ( )Unusual pain occurs ( )Decreased movement ( ) labor: If you have 4 contractions in an hour Keep your scheduled follow up appointment. Or call for a follow up on . IN CASE OF EMERGENCY CONTACT LABOR AND DELIVERY . documented in this encounter History of Present Illness * Matilda Pierson APRN - CNM - 09/23/2019 7:29 AM EST C/S Labor and Delivery Post Progress Note SUBJECTIVE: Pt doing well today pt states she is ready to go home Flatus:Present BM:no Diet: Tolerating regular diet Ambulation: Ambulateswithout difficulty OBJECTIVE: Vitals: BP 130/74 Pulse 90 Temp 98.4 F (36.9 C) (Oral) Resp 18 Ht 4' 11 (1.499 m) Wt 218 lb (98.9 kg) LMP 12/21/2018 SpO2 97% Unknown BMI 44.03 kg/m Patient Vitals for the past 24 hrs: BP Temp Temp src Pulse Resp 09/22/19 2330 130/74 98.4 F (36.9 C) Oral 90 18 09/22/19 1947 123/61 98.5 F (36.9 C) Oral 99 18 09/22/19 1542 119/73 98.1 F (36.7 C) Oral 85 16 09/22/19 0830 114/71 97.9 F (36.6 C) Oral 88 16 ABDOMEN: No scars, normal bowel sounds, soft, non-distended, non-tender, no masses palpated, no hepatosplenomegally INCISION: dressing in place, clean, dry and intact GENITAL/URINARY: Uterus: Size normal, Contour normal Cor: RRR no Murmurs Pulmonary: clear to auscultation anterior and posterior Extremities: no Clubbing cyanosis or ecchymosis DATA: ASSESSMENT: Active Problems: Term Polyhydramnios in third trimester macrosomia in third trimester Failed medical induction of labor S/P primary low transverse S/P C/S post op day # 3 PLAN: Discharge home today * Matilda Pierson APRN - CNM - 09/22/2019 9:53 AM EST C/S Labor and Delivery Post Progress Note SUBJECTIVE: Pt states she feels about the same as yesterday and will be ready to go home on wednesday Flatus:Present BM:no Diet: Tolerating regular diet Ambulation: Ambulateswithout difficulty OBJECTIVE: Vitals: BP 114/71 Pulse 88 Temp 97.9 F (36.6 C) (Oral) Resp 16 Ht 4' 11 (1.499 m) Wt 218 lb (98.9 kg) LMP 12/21/2018 SpO2 97% Unknown BMI 44.03 kg/m Patient Vitals for the past 24 hrs: BP Temp Temp src Pulse Resp 09/22/19 0830 114/71 97.9 F (36.6 C) Oral 88 16 09/22/19 0024 (!) 106/54 98.1 F (36.7 C) Oral 93 09/22/19 0023 (!) 106/54 93 09/21/19 1930 (!) 116/58 98.3 F (36.8 C) Oral 109 16 09/21/19 1635 (!) 113/56 97.8 F (36.6 C) Oral 106 16 09/21/19 1056 115/72 97.9 F (36.6 C) Oral 85 16 ABDOMEN: No scars, normal bowel sounds, soft, non-distended, non-tender, no masses palpated, no hepatosplenomegally INCISION: dressing in place, clean, dry and intact GENITAL/URINARY: Uterus: Size normal, Contour normal, Position normal Cor: RRR no Murmurs Pulmonary: clear to auscultation anterior and posterior Extremities: no Clubbing cyanosis or ecchymosis DATA: ASSESSMENT: Active Problems: Term Polyhydramnios in third trimester macrosomia in third trimester Failed medical induction of labor S/P primary low transverse S/P C/S post op day # 2 PLAN: Continue care * Radha Ramos IBCLC - 09/21/2019 10:48 AM EST education: [x] Latch/ good latch vs shallow latch/ steps to obtaining deep latch [x] How to know if infant is eating enough/ feedings per 24 hours, wet/dirty diapers [x] Feeding/satiety cues education resources given: [x] How to Breastfeed your baby - [facility] publication [x] Information on feeding cues [x] Support group handout [x] Breastpump cleaning guidelines - CDC [x] & Safe Sleep handout - [place] publication [x] Calling All Dads! Handout - [place] publication [] Breast and Nipple Care - [facility] [] Breastmilk Collection & Storage - [facility] [] Breastpump Kit Care - [facility] [] Going Back to Work - [employer] [] Preventing Engorgement - [facility] Supplies given: [] [place], soap and basin for breastpump cleaning [] Insurance pump provided through [employer] [] Insurance pump provided through [employer] Explained to patient, patient verbalizes understanding. Signed: Radha Ramos RN, BSN, IBCLC * Matilda Pierson APRN - FREDRICK - 09/21/2019 8:22 AM EST C/S Labor and Delivery Post Progress Note SUBJECTIVE: Pt is doing well today. Pt is up in a chair eating breakfast Flatus:Present BM:no Diet: Tolerating regular diet Ambulation: Ambulateswithout difficulty OBJECTIVE: Vitals: BP 128/77 Pulse 88 Temp 97.8 F (36.6 C) (Oral) Resp 16 Ht 4' 11 (1.499 m) Wt 218 lb (98.9 kg) LMP 12/21/2018 SpO2 97% Unknown BMI 44.03 kg/m Patient Vitals for the past 24 hrs: BP Temp Temp src Pulse Resp SpO2 09/21/19 0723 128/77 97.8 F (36.6 C) Oral 88 16 09/21/19 0405 (!) 146/63 98.2 F (36.8 C) Oral 97 18 09/21/19 0009 117/62 98.5 F (36.9 C) Oral 89 18 09/20/197 97 % 09/20/195 126/72 83 09/20/19 2244 93 % 09/20/192241 95 % 09/20/198 93 % 09/20/192 96 % 09/20/19 2230 130/73 83 09/20/197 96 % 022221 96 % 09/20/192216 95 % 09/20/195 130/77 83 09/20/19 2200 127/73 98 F (36.7 C) 86 09/20/192056 97 % 09/20/192051 98 % 09/20/192046 98 % 09/20/192044 121/80 109 94 % 09/20/192041 98 % 09/20/192036 97 % 09/20/192032 94 % 09/20/192031 97 % 09/20/192026 (!) 110/58 97.8 F (36.6 C) Oral 110 20 97 % 09/20/19 1847 128/64 109 09/20/19 1827 118/72 100 09/20/19 1748 134/71 95 09/20/19 1721 135/84 100 09/20/19 1647 121/74 96 18 09/20/19 1616 117/71 102 09/20/19 1547 122/75 97.9 F (36.6 C) Oral 100 18 09/20/19 1517 131/74 90 09/20/19 1448 126/72 98 F (36.7 C) Oral 85 18 09/20/19 1417 124/81 100 09/20/19 1348 134/81 99 18 09/20/19 1319 129/82 115 09/20/19 1245 121/77 98.1 F (36.7 C) Oral 106 18 09/20/19 1215 121/72 100 09/20/19 1145 114/61 93 16 09/20/19 1118 (!) 108/56 96 09/20/19 1049 105/63 97.6 F (36.4 C) Oral 86 16 09/20/19 0946 127/79 89 16 09/20/19 0917 134/82 93 09/20/19 0847 125/79 97.6 F (36.4 C) Oral 101 16 ABDOMEN: No scars, normal bowel sounds, soft, non-distended, non-tender, no masses palpated, no hepatosplenomegally INCISION: dressing in place, clean, dry and intact GENITAL/URINARY: Uterus: Size normal, Contour normal Cor: RRR no Murmurs Pulmonary: clear to auscultation anterior and posterior Extremities: no Clubbing cyanosis or ecchymosis DATA: ASSESSMENT: Active Problems: Term Polyhydramnios in third trimester macrosomia in third trimester Failed medical induction of labor S/P primary low transverse S/P C/S post op day # 1 PLAN: Continue care * Lenore Nolasco MD - 09/20/2019 6:08 PM EST OB note: Patient has had Pitocin for 12 hours's up to 24 milliunits. Cervix is unchanged from 4 cm and ballotable. With the consideration of her having macrosomia by last ultrasound, polyhydramnios, and history of uterine inversion with last delivery proceed with a primary section . And the patientis in agreement as there is no cervical change. Surgical consent completed * Lenore Nolasco MD - 09/20/2019 11:23 AM EST Cervix checked at approximately 1100. Unchanged . 4 cm dilated , Ballotable documented in this encounter* Leatha Darden RN - 04/05/2019 1:20 PM EDT Patient discharged via a wheelchair accompanied by the father of the baby and hospital personnel toprivate car. She denies any cramping and discharge. * Leatha Darden RN - 04/05/2019 1:04 PM EDT Patient up to the bathroom to void. Voided freely and her gait was steady. * Leatha Darden RN - 04/05/2019 12:00 PM EDT Patient ambulated to the bathroom with 2 person standby assist because she stated that her butt andlower legs feel numb. She was unable to void on the toilet. She will try to nap and see if the sensation comes back. She denies cramping. * Leatha Darden RN - 04/05/2019 10:51 AM EDT Patient ate breakfast and states that she feels normal except her lower legs feel heavy and toes numb. She has not worn below the knee jalil stockings before so we will try removing them to see if normal sensation returns. * Leatha Darden RN - 04/05/2019 9:48 AM EDT Patient is sitting up to eat a little breakfast. She has tolerated ice chips and some sprite. She denies cramping. Her legs still feel fat and tingly and cold intermittently. She is able to move her legs but not wiggle her toes. * Isabelle Roberts RN - 04/05/2019 8:31 AM EDT Report given to Tsering GANDHI * Price Hoskins RN - 03/27/2019 3:05 PM EDT Patient instructed on the pre-operative, intra-operative, and post-operative process. Patient instructed on NPO status. Medication instructions and Pre operative instruction sheet reviewed over the phone. * Price Hoskins RN - 03/27/2019 12:41 PM EDT Attempted PAT phone call; no answer; message left to return PAT phone call. * Amy Flanagan RN - 03/24/2019 11:39 AM EDT Attempted PAT phone call; no answer; message left to return PAT phone call. * Price Hoskins RN - 03/23/2019 10:07 AM EDT Attempted PAT phone call; no answer; message left to return PAT phone call. documented in this encounter Assessments Diagnosis S/P primary low transverse - Primary delivery, without mention of indication, unspecified as to episode of care Term Polyhydramnios in third trimester Polyhydramnios, antepartum complication macrosomia in third trimester Failed medical induction of labor Failed medical or unspecified induction of labor, unspecified as to episode of care Left-sided Kenyon's palsy Diagnosis Routine follow-up Chief Complaint and Reason for Visit Chief Complaint Admit Date Rash March 21, 2025 12: 52pm Reason for Visit Admit Date Poison diego dermatitis March 21, 2025 1 2:52pm Additional Source Comments INFORMATION SOURCE (unrecogn ized section and content) DATE CREATED AUTHOR 11/06/2018 [facility] DATE CREATED AUTHOR AUTHOR'S ORGANIZ ATION 11/09/2019 [facility] DATE CREATED AUTHOR AUTHOR'S ORGANIZ ATION 08/02/2023 [facility] DATE CREATED AUTHOR AUTHOR'S ORGANIZ ATION 01/28/2024 [facility] DATE CREATED AUTHOR AUTHOR'S ORGANIZ ATION 08/07/[address] [facility] DATE CREATED AUTHOR AUTHOR'S ORGANIZ ATION 11/29/2024 [facility] DATE CREATED AUTHOR AUTHOR'S ORGANIZ ATION 03/10/2025 [facility] Reason for Visit (unrecogniz ed section and content) Reason Comments Scheduled Induction Status Reason Specialty Diagnoses / Procedures Referre d By Contact Referred To Contact Diagnoses Term Lenore Nolasco MD [address] [place] [id number] [facility] Status Reason Specialty Diagnoses / Procedures Referre d By Contact Referred To Contact Diagnoses labor PREVENTION OF LABOR Procedures NH CERCLAGE CERVIX W PREG,VAG APPRCH CERVIX CERCLAGE-Lenore Balderrama MD [address] [place] [address] [facility] Reason Comments Procedure cerclage removal Reason Comments Contractions mucus plug came out yesterday Reason Comments Weight Check Medication,weight ch ramya no fever with cough.yellow green Reason Comments Enlarged Tonsils Reason Comments Follow-up Testing GENESIGHT TE STING results. Also follow up from strep Reason Comments Go over genesight results Reason Comments Med Refill Reason Comments IUD insertion Reason Comments Follow-up Reason Comments Depression Follow-up Reason Comments Depression Feeling ok. Cough fo r 1 week-green to clear Reason Comments Follow-up Lung screening resul ts-[facility] Reason Comments wellness Care Teams (unrecognized sec tion and content) Cross Tie Turner Relationship Specialty Start Date End Date Price Samson SALES DEPARTMENT SUPERVISOR[employer] [address] [place] [address] PCP - General Internal Medicine 10/13/22 Cross Tie Turner Relationship Specialty Start Date End Date Price Samson MD [address] [place] [address] Referring Physician Family Medicine 08/02/24 Cross [employer]ie Turner Relationship Specialty Start Date End Date Price Samson MD [address] [place] [address] Referring Physician Family Medicine 08/02/24 Cross Tie Turner Relationship Specialty Start Date End Date Price Samson SALES DEPARTMENT SUPERVISOR[employer] [address] [address] PCP - General Internal Medicine 10/13/22 Cross Tie Turner Relationship Specialty Start Date End Date Price Samson SALES DEPARTMENT SUPERVISOR-[employer] [address] [place] [address] PCP - General Internal Medicine 10/13/22 Cross Tie Turner Relationship Specialty Start Date End Date Price Samson SALES DEPARTMENT SUPERVISOR[employer] [address] [place] [address] PCP - General Internal Medicine 10/13/22 Cross Tie Turner Relationship Specialty Start Date End Date Price SamsonADRIAN-OPTIC FIBRE DRAWER [address] [place] [address] PCP - General Internal Medicine 10/13/22 Cross Tie Turner Relationship Specialty Start Date End Date Price Samson SALES DEPARTMENT SUPERVISOR[employer] [address] [place] [address] PCP - General Internal Medicine 10/13/22 Cross Tie Turner Relationship Specialty Start Date End Date Price Samson SALES DEPARTMENT SUPERVISOR[employer] [address] [place] [address] PCP - General Internal Medicine 10/13/22 Cross Tie Turner Relationship Specialty Start Date End Date Price Samson SALES DEPARTMENT SUPERVISOR[employer] [address] [place] [address] PCP - General Internal Medicine 10/13/22 Cross Tie Turner Relationship Specialty Start Date End Date Price Samson SALES DEPARTMENT SUPERVISOR[employer] [address] [place] [address] PCP - General Internal Medicine 10/13/22 Team Status: Active Member Role Status Dates Sean Main MD Primary Care Provider Active Team Status: Inactive Member Role Status Dates Sean Main MD Primary Care Provider Active S tart: March 21, 2025 End: March 21, 2025 Xuan Oviedo APRN Attending Provider Active S tart: March 21, 2025 End: March 21, 2025 Goals (unrecognized section and content) Goals may be documented in a n alternate section FOR RECORDS PERTAINING TO PATIENTS WHO ARE OR HAVE BEEN ENROLLED IN A CHEMICAL DEPENDENCY/SUBSTANCEABUSE PROGRAM, SOME INFORMATION MAY BE OMITTED. This clinical summary was aggregated from multiple sources. Caution should be exercised in using it in the provision of clinical care. This summary normalizes information from multiple sources, and as a consequence, information in this document may materially change the coding, format and clinical context of patient data. In addition, data may be omitted in some cases. CLINICAL DECISIONS SHOULD BE BASED ON THE PRIMARY CLINICAL RECORDS. [employer] [facility]. provides no warranty or guarantee of the accuracy or completeness of information in this document.
[2025-04-08] MEDS: AMOXICILLIN/POT CLAV 875-125 MG TABLET 1 TAB PO (16:54)
--- NOTE | 2025-04-09 07:12 | ED_ITS ---
HPI HPI - General Adult General Chief complaint: Animal Bite Stated complaint: Cat Bite Time Seen by Provider: 04/08/25 16:38 Source: patient Mode of arrival: walk-in History of Present Illness HPI narrative: Patient is a 34-year-old healthy female presenting to the emergency department for concerns of a cat bite to the left forearm. Patient states she sustained multiple bites ~24 hours ago. The cat was her [id number]-rh-wwr's pet and fully vaccinated. She thought that her wounds were minimal, so she did not seek immediate medical attention. However, over the last 24 hours, she has had worsening pain and swelling of the left forearm. She denies any other areas of injury. She denies any systemic symptoms such as fevers, chills, chest pain, shortness of breath, nausea, or vomiting. She is otherwise healthy with no chronic medical conditions. Related Data Previous Rx's ?Medication ?Instructions ?Recorded nabumetone 750 mg tablet 750 mg PO BID PRN pain #20 t abs 10/31/23 amoxicillin 875 mg-potassium 1 tab PO BID 7 days #14 t abs 04/08/25 clavulanate 125 mg tablet Allergies Allergy/AdvReac Type Severity Reaction Status Date / Time No Known Drug Allergies Allergy Verified 10/31/23 20:19 Opioid HPI Opioid Management Most Recent Opioid Data: Last Pain Scale 6 10/31/23, 22:36 Review of Systems ROS Status of ROS 10 or more systems reviewed and unremark able except as noted in history and below Exam Narrative Exam Narrative: CONSTITUTIONAL: Well-appearing, answering questions and following commands appropriately SKIN: There are numerous small puncture wounds and scratches to the left forea rm. There is mild tenderness to palpation and soft tissue swelling. Mild erythema without induration, fluctuance, purulent drainage, or crepitus. EYES: Sclerae white. EARS, NOSE, THROAT: Moist oral mucosa. RESPIRATORY: Nonlabored respirations. CARDIOVASCULAR: Normal rate and regular rhythm. 2+ radial pulses. GASTROINTESTINAL: Abdomen is nondistended. MUSCULOSKELETAL: Full range of motion of the left upper extremity including at the elbow, wrist, and fingers NEUROLOGIC: Patient is awake and alert. Equal strength and sensation to light touch in the left upper extremity. Facies were symmetrical. Constitutional Vital Signs, click to edit/add: Last Vital Signs Temp 98.7 F 04/08/25 16:40 Pulse 95 H 04/08/25 16:40 Resp 18 04/08/25 16:40 BP 160/94 H 04/08/25 16:40 Pulse Ox 96 04/08/25 16:40 O2 Del Method Room Air 04/08/25 16:40 Course Vital Signs Vital signs: Vital Signs Temperature 98.7 F 04/08/25 16:40 Pulse Rate 95 H 04/08/25 16:40 Respiratory Rate 18 04/08/25 16:40 Blood Pressure 160/94 H 04/08/25 16:40 Pulse Oximetry 96 04/08/25 16:40 Oxygen Delivery Method Room Air 04/08/25 16:40 Temperature 98.7 F 04/08/25 16:40 Pulse Rate 95 H 04/08/25 16:40 Respiratory Rate 18 04/08/25 16:40 Blood Pressure 160/94 H 04/08/25 16:40 Pulse Oximetry 96 04/08/25 16:40 Oxygen Delivery Method Room Air 04/08/25 16:40 Medical Decision Making [facility] Narrative Medical decision making narrative: Patient is a 34-year-old female presenting to the emergency department 24 hours after sustaining cat bites to the left forearm. Her vital signs are within normal limits. She is afebrile and hemodynamically stable. The left upper extremity has numerous cat bites with mild tenderness, mild erythema, and mild soft tissue swelling. The extremity is neurovascularly intact with good range of motion throughout. She is otherwise asymptomatic and is displaying to signs of systemic illness. Differential diagnosis includes mammalian bite, early cellulitis. No concern for retained foreign body. The patient will be treated here in the ED with her first dose of Augmentin 875-125 mg. She was given a prescription for Augmentin twice daily x 7 days. She was instructed return to the emergency department should her symptoms worsen, or she develops symptoms such as fever, worsening cellulitis, or any other concerning symptoms. She is instructed follow-up with her PCP in the next 5 days for further care. Patient understands and agrees to plan FINAL IMPRESSION: #Acute cat bites to the left forearm DISPOSITION: Discharged home CONDITION: Good Discharge Plan Discharge Chief Complaint: Animal Bite Clinical Impression: Cat bite Qualifiers: Encounter type: initial encounter Qualified Code(s): W55.01XA - Bitten by cat, initial encounter Patient Disposition: Home, Self-Care Time of Disposition Decision: 16:47 Condition: Good Mode of Transportation: Private Vehicle Prescriptions / Home Meds: New amoxicillin-pot clavulanate 875-125 mg tablet 1 tab PO BID 7 Days Qty: 14 0RF No Action nabumetone 750 mg tablet 750 mg PO BID PRN (Reason: pain) Qty: 20 0RF Print Language: Israeli Instructions: Animal Bite (ED) Referrals: MARYLIN ERICKSON [Primary Care Provider, Unknown] - 1 week Discharge Date/Time: 04/08/25 17:02
== END 2025-04-08 17:02 | disposition home or self-care (01) ==
PROVIDERS: Emergency Provider Student in an Organized Health Care Education/Training Program; PCP Nurse Practitioner
DX: M79.622 Pain in left upper arm (principal); R60.0 Localized edema; L53.8 Other specified erythematous conditions; W55.01XA Bitten by cat, initial encounter
CPT/HCPCS: 99283